=== PATIENT | female | born 1950 | race Caucasian/White ===

== ENCOUNTER 2023-03-15 08:46 | Outpatient (OUT) | payer MEDICARE, SELFPAY ==
--- NOTE | 2023-03-15 08:52 | MM_ITS ---
Patient: RIGOBERTO BARRIOS Exam Date: 03/15/2023 : 1950 Gender:F Ordering : DR MARIA DE JESUS SHORT M.D. Admission #: [id number] Family : Order #: [id number] CLICK HERE TO VIEW EXAM RADIOLOGY REPORT PROCEDURE: MM TOMOSYNTHESIS SCREENING BI COMPARISON: MG MAMM SCREEN 3D OWEN CAD, 01/05/2022. MG MAMM DX 3D LT CAD, 03/26/2021. INDICATIONS: Screening Calculator Name NCI Breast Cancer Risk Assessment Tool 5 Year Breast Cancer Risk 2.40% Lifetime Breast Cancer Risk 6.30% Personal Breast Cancer No Personal Ovarian Cancer No Treatments None Family Cancers Father with lung cancer at age ~72. LOCATION: [facility] BREAST COMPOSITION: Scattered areas fibroglandular density. FINDINGS: DIAGNOSTIC CATEGORY 2--BENIGN FINDING. NO CHANGE FROM COMPARISON. Scattered benign-appearing calcifications are present. Scattered benign-appearing nodules are present. Scattered benign-appearing lymph nodes are present. RIGHT BREAST: No significant suspicious finding. LEFT BREAST: No significant suspicious finding. RECOMMENDATIONS: ROUTINE MAMMOGRAM AND CLINICAL EVALUATION IN 12 MONTHS. PLEASE NOTE: A NORMAL MAMMOGRAM DOES NOT EXCLUDE THE POSSIBILITY OF BREAST CANCER. A CLINICALLY SUSPICIOUS PALPABLE LUMP SHOULD BE BIOPSIED. Dictated by: Rich Shankar MD on 03/15/2023 at 11:29 Approved by: Rich Shankar MD on 03/15/2023 at 11:32
== END 2023-03-15 08:47 | disposition home or self-care (01) ==
LOC: MAMMO 08:46
PROVIDERS: Family Provider Internal Medicine; PCP Internal Medicine; Visit Provider Internal Medicine
DX: Z12.31 Encounter for screening mammogram for malignant neoplasm of breast (principal); Z80.1 Family history of malignant neoplasm of trachea, bronchus and lung
CPT/HCPCS: 77063; 77067

== ENCOUNTER 2024-03-26 09:43 | Outpatient (OUT) | payer MEDICARE, SELFPAY ==
--- NOTE | 2024-03-26 10:00 | MM_ITS ---
Patient Name: RIGOBERTO BARRIOS MR#: [id number] : 1950 Exam Date: 03/26/2024 Ordering Doctor: DR MARIA DE JESUS SHORT M.D. RADIOLOGY REPORT PROCEDURE: MM TOMOSYNTHESIS SCREENING BI COMPARISON: MG MAMM SCREEN 3D OWEN CAD, 01/05/2022. MM TOMOSYNTHESIS SCREENING BI, 03/15/2023. INDICATIONS: Screening for malignant neoplasm Calculator Name NCI Breast Cancer Risk Assessment Tool 5 Year Breast Cancer Risk 2.40% Lifetime Breast Cancer Risk 5.90% Personal Breast Cancer No Personal Ovarian Cancer No Treatments None Family Cancers Father with lung cancer at age ~72. LOCATION: [facility] BREAST COMPOSITION: There are scattered areas of fibroglandular density. FINDINGS: DIAGNOSTIC CATEGORY 2--BENIGN FINDING. NO CHANGE FROM COMPARISON. Scattered benign-appearing nodules are present. Scattered benign-appearing calcifications are present. Scattered benign-appearing lymph nodes are present. RIGHT BREAST: No significant suspicious finding. LEFT BREAST: No significant suspicious finding. Multiple rim calcified likely oil cysts in the left breast, stable. RECOMMENDATIONS: ROUTINE MAMMOGRAM AND CLINICAL EVALUATION IN 12 MONTHS. PLEASE NOTE: A NORMAL MAMMOGRAM DOES NOT EXCLUDE THE POSSIBILITY OF BREAST CANCER. A CLINICALLY SUSPICIOUS PALPABLE LUMP SHOULD BE BIOPSIED. Dictated by: Rich Shankar MD on 03/26/2024 at 12:46 Approved by: Rich Shankar MD on 03/26/2024 at 12:48
== END 2024-03-26 09:44 | disposition home or self-care (01) ==
LOC: MAMMO 09:43
PROVIDERS: Family Provider Internal Medicine; PCP Internal Medicine; Visit Provider Internal Medicine
DX: Z12.31 Encounter for screening mammogram for malignant neoplasm of breast (principal); Z80.1 Family history of malignant neoplasm of trachea, bronchus and lung
CPT/HCPCS: 77063; 77067

== ENCOUNTER 2025-02-25 10:31 | Outpatient (OUT) | payer MEDICARE, SELFPAY ==
--- OUTSIDE RECORDS SUMMARY | 2021-02-08 05:15 | XMS_ITS | Continuity of Care Document ---
Author Organization [facility] Address [address] [place] [address] Phone Care Team Providers Care Systems Integration Manager Name Role Phone River Saucedo Unavailable Unavailable [...] Diagnoses Date Provider Providers Copied on Encounter [facility], [address] [place], [place], [id number], [place] tel:[phone] [facility] lumbar spine (chief complaint)l umbar spine (chief complaint) Segmental and somatic dysfunction of lumbar regionLow back painOther intervertebral disc degeneration, lumbar regionSegmental and somatic dysfunction of thoracic region 1 Lewis Holman. [address] [place], [place], [id number] , . tel:[phone] [facility], [address] [place], [place], [id number], tel:[phone] [facility] lumbar spine (chief complaint)l umbar spine (chief complaint) Segmental and somatic dysfunction of lumbar regionLow back painOther intervertebral disc degeneration, lumbar regionSegmental and somatic dysfunction of thoracic region 1 Lewis Holman. [address] [place], [place], [id number] , [place]. [phone] [facility], [address] [place] [address], [id number], tel:[phone] [facility] lumbar spine (chief complaint)l umbar spine (chief complaint) Segmental and somatic dysfunction of lumbar regionLow back painOther intervertebral disc degeneration, lumbar regionSegmental and somatic dysfunction of thoracic region 1 Lewis Holman. [address] [place], [place], [id number] , [place]. tel:[phone] [facility], [address] [place] [address], [id number], [place] tel:[phone] [facility] lumbar spine (chief complaint)l umbar spine (chief complaint) Segmental and somatic dysfunction of lumbar regionLow back painOther intervertebral disc degeneration, lumbar regionSegmental and somatic dysfunction of thoracic region 1 Lewis Holman. [address] [place] [address], [id number] , [place]. [phone] [facility], [address] [place], [place], [id number], tel:[phone] [facility] lumbar spine (chief complaint)l umbar spine (chief complaint) Segmental and somatic dysfunction of lumbar regionLow back painOther intervertebral disc degeneration, lumbar regionSegmental and somatic dysfunction of cervical region 1 Lewis Holman. [address] [place], [place], [id number] , [place]. tel: [phone] [facility], [address] [place] [address], [place], [id number], tel:[phone] [facility] lumbar spine (chief complaint)l umbar spine (chief complaint) Segmental and somatic dysfunction of lumbar regionLow back painOther intervertebral disc degeneration, lumbar regionSegmental and somatic dysfunction of thoracic region 1 Lewis Holman. [address] [place], [place], [id number] , [place]. tel: [phone] [facility], [address] [place], [place], [id number], [place] tel:[phone] [facility] lumbar spine (chief complaint)l umbar spine (chief complaint) Segmental and somatic dysfunction of lumbar regionLow back painOther intervertebral disc degeneration, lumbar regionSegmental and somatic dysfunction of cervical region 1 Lewis Holman. [address] [place] [address], [id number] , [place]. tel: [phone] [facility], [address] [place], [place], [id number], [place] tel:[phone] [facility] lumbar spine (chief complaint)l umbar spine (chief complaint) Segmental and somatic dysfunction of lumbar regionLow back painOther intervertebral disc degeneration, lumbar regionSegmental and somatic dysfunction of thoracic region 1 Lewis Holman. [address] [place], [place], [id number] , [place]. tel: [phone] [facility], [address] [place] [address], [id number], [place] tel:[phone] [facility] lumbar spine (chief complaint)l umbar spine (chief complaint) Segmental and somatic dysfunction of lumbar regionLow back painOther intervertebral disc degeneration, lumbar regionSegmental and somatic dysfunction of thoracic region 1 Lewis Holman. [address] [place], [place], [id number] , [place]. tel: [phone] [facility], [address] [place], [place], [id number], [place] tel:[phone] [facility] lumbar spine (chief complaint)l umbar spine (chief complaint) Segmental and somatic dysfunction of lumbar regionLow back painOther intervertebral disc degeneration, lumbar regionSegmental and somatic dysfunction of thoracic region 1 Lewis Holman. [address] [place], [place], [id number] , [place]. tel: [phone] [facility], [address] [place], [place], [id number], [place] tel:[phone] [facility] lumbar spine (chief complaint)l umbar spine (chief complaint) Segmental and somatic dysfunction of lumbar regionLow back painOther intervertebral disc degeneration, lumbar regionSegmental and somatic dysfunction of thoracic region 1 Lewis Holman. [address] [place], [place], [id number] , [place]. tel: [phone] [facility], [address] [place], [place], [id number], [place] tel:[phone] [facility] lumbar spine (chief complaint)l umbar spine (chief complaint) Segmental and somatic dysfunction of lumbar regionLow back painOther intervertebral disc degeneration, lumbar regionSegmental and somatic dysfunction of thoracic region 1 Lewis Holman. [address] [place], [place], [id number] , [place]. tel: [phone] [facility], [address] [place], [place], [id number], [place] tel:[phone] [facility] lumbar spine (chief complaint)l umbar spine (chief complaint) Segmental and somatic dysfunction of lumbar regionLow back painOther intervertebral disc degeneration, lumbar regionSegmental and somatic dysfunction of thoracic region 1 Lewis Holman. [address] [place], [place], [id number] , [place]. tel: [phone] [facility], [address] [place], [place], [id number], [place] tel:[phone] [facility] lumbar spine (chief complaint)l umbar spine (chief complaint) Segmental and somatic dysfunction of lumbar regionLow back painOther intervertebral disc degeneration, lumbar regionSegmental and somatic dysfunction of cervical region Oct- 1 Lewis Holman. [address] [place], [place], [id number] , [place]. tel: [phone] [facility], [address] [place], [place], [id number], [place] tel:[phone] [facility] lumbar spine (chief complaint)l umbar spine (chief complaint) Segmental and somatic dysfunction of lumbar regionLow back painOther intervertebral disc degeneration, lumbar regionSegmental and somatic dysfunction of thoracic region Oct- 1 Lewis Holman. [address] [place] [address], [id number] , [place]. tel: [phone] [facility], [address] [place] [address], [id number], [place] tel:[phone] [facility] lumbar spine (chief complaint)l umbar spine (chief complaint) Segmental and somatic dysfunction of lumbar regionLow back painOther intervertebral disc degeneration, lumbar regionSegmental and somatic dysfunction of thoracic region Oct- 1 Lewis Holman. [address] [place] [address], [id number] , [place]. tel: [phone] [facility], [address] [place] [address], [id number], [place] tel:[phone] [facility] lumbar spine (chief complaint)l umbar spine (chief complaint) Segmental and somatic dysfunction of lumbar regionLow back painOther intervertebral disc degeneration, lumbar regionSegmental and somatic dysfunction of thoracic region Oct- 1 Lewis Holman. [address] [place] [address], [id number] , [place]. tel: [phone] [facility], [address] [place] [address], [id number], [place] tel:[phone] [facility] lumbar spine (chief complaint)l umbar spine (chief complaint) Segmental and somatic dysfunction of lumbar regionLow back painOther intervertebral disc degeneration, lumbar regionSegmental and somatic dysfunction of thoracic region Apr-1 2-202 1 Lewis Holman. [address] [place], [place], [id number] , [place]. tel: [phone] [facility], [address] [place], [place], [id number], [place] tel:[phone] [facility] lumbar spine (chief complaint)l umbar spine (chief complaint) Segmental and somatic dysfunction of lumbar regionLow back painOther intervertebral disc degeneration, lumbar regionSegmental and somatic dysfunction of thoracic region Apr-0 8- 1 Lewis Holman. [address] [place], [place], [id number] , [place]. tel: [phone] [facility], [address] [place] [address], [id number], [place] tel:[phone] [facility] lumbar spine (chief complaint)l umbar spine (chief complaint) Segmental and somatic dysfunction of lumbar regionLow back painOther intervertebral disc degeneration, lumbar regionSegmental and somatic dysfunction of thoracic region Apr-0 5- 1 Lewis Holman. [address] [place] [address], [id number] , [place]. tel: [phone] [facility], [address] [place], [place], [id number], [place] tel:[phone] [facility] lumbar spine (chief complaint)l umbar spine (chief complaint) Segmental and somatic dysfunction of lumbar regionLow back painOther intervertebral disc degeneration, lumbar regionSegmental and somatic dysfunction of thoracic region Apr-0 1-202 1 Lewis Holman. [address] [place] [address], [id number] , [place]. tel: [phone] [facility], [address] [place] [address], [id number], [place] tel:[phone] [facility] lumbar spine (chief complaint)l umbar spine (chief complaint) Segmental and somatic dysfunction of lumbar regionLow back painOther intervertebral disc degeneration, lumbar regionSegmental and somatic dysfunction of thoracic region Mar-3 0-202 1 Lewis Holman. [address] [place], [place], [id number] , [place]. tel:[phone] [facility], [address] [place], [place], [id number], [place] tel:[phone] [facility] lumbar spine (chief complaint)l umbar spine (chief complaint) Segmental and somatic dysfunction of lumbar regionLow back painOther intervertebral disc degeneration, lumbar regionSegmental and somatic dysfunction of thoracic region 1 Lewis Holman. [address] [place], [place], [id number] , [place]. tel:[phone] [facility], [address] [place], [place], [id number], [place] tel:[phone] [facility] lumbar spine (chief complaint)l umbar spine (chief complaint) Segmental and somatic dysfunction of lumbar regionLow back painOther intervertebral disc degeneration, lumbar regionSegmental and somatic dysfunction of cervical region 1 Lewis Holman. [address] [place] [address], [id number] , [place]. tel:[phone] Family History Family Member Type Diagnosis Age At Onset No Information Payers Payer name Insurance type Covered green party ID Authoriza tion(s) [employer] Medicare PPS MB [id number] Social History Type Description Quantity Date Captured [...]
--- OUTSIDE RECORDS SUMMARY | 2025-02-13 09:20 | XMS_ITS | Encounter Summary ---
Author Organization [facility] Address [address] [place] [address] Care Team Providers Care Management Services Technician Name Role Phone Noah Bethea MD Unavailable [phone] Noah Bethea MD Primary Care Provider [phone] Reason for Visit * Reason Comments Follow-up Encounter Details Date Type Department Care Team (Latest Contact Info) Description 02/13/2025 9:20 AM EDT Clinical Support [facility] [address] [facility] [address] [place] [address] Po Cha, DPM [address] [facility] [address] [place] [address] Capsulitis of metatarsophalangeal (MTP) joint of left foot (Primary Dx); Metatarsal deformity, left; Contracture of left ankle Social History Tobacco Use Types Packs/Day Years Used Date Smoking Tobacco: Former Cigarettes Q uit: 10/16/1991 Smokeless Tobacco: Never Tobacco Cessation:Counseling Given: Yes Alcohol Use Standard Drinks/Week Comments Never 0 (1 standard drink = 0.6 oz pur e alcohol) Caffeine 1-2 cups per day PHQ-2 Answer Date Recorded Patient Health Questionnaire-2 Score 0 09/11/2024 Comments Unknown Sex and Gender Information Value Date Recorded Sex Assigned at Not on file Legal Sex Female 6:47 PM EDT Gender Identity Not on file Sexual Orientation Not on file documented as of this encounter Last Filed Vital Signs Vital Sign Reading Time Taken Comments Blood Pressure - - Pulse - - Temperature - - Respiratory Rate 16 02/13/2025 9:08 AM EDT Oxygen Saturation - - Inhaled Oxygen Concentration - - Weight 106 kg (233 lb) 02/13/2025 9:08 AM EDT Height 170.2 cm (5' 7 ) 02/13/2025 9:08 AM EDT Body Mass Index 36.49 02/13/2025 9:08 AM EDT documented in this encounter Progress Notes * Po Zelaya Semaj, DPM - 02/13/2025 9:20 AM EDT Patient: Jennie Bey : 1950 PCP: Noah Bethea MD SUBJECTIVE Patient presents today for follow up of capsulitis and synovitis to the left 5th MPJ Currently they rate their pain on a 1-10 scale a 0-1 States prior treatments of steroid injection and nsaids with relief States pain is aggrevated with WB. Pt has been using wider shoes with minimal improvement. Pt has hx of 5th metatarsal deformity of gay luna with discussion of sx in past. Allergies: No Known Allergies Past Medical History: Past Medical History: Diagnosis Date Alopecia Anxiety Casper's thyroiditis Hypertension Kidney stones Obesity Plantar fasciitis Varicose vein of leg Medications: Current Outpatient Medications: amLODIPine (Norvasc) 5 MG tablet, Take 1 tablet (5 mg) by mouth Daily, Disp: 90 tablet, Rfl: 5 atenolol (Tenormin) 25 MG tablet, TAKE 1 TABLET BY MOUTH EVERY DAY, Disp: 90 tablet, Rfl: 4 cholecalciferol (Vitamin D-3) 50 MCG (1999 UT) capsule, Take 1 capsule by mouth in the morning., Disp: , Rfl: levothyroxine (Synthroid, Levoxyl) 100 MCG tablet, TAKE 1 TABLET BY MOUTH ONCE EVERY MORNING ON AN EMPTY STOMACH, Disp: 90 tablet, Rfl: 4 magnesium oxide (Mag-Ox) 400 MG tablet, Take 400 mg by mouth in the morning., Disp: , Rfl: Multiple Vitamins-Minerals (OCUVITE ADULT 50+ PO), Daily., Disp: , Rfl: Social History: Social History Socioeconomic History Marital status: Spouse name: Not on file Number of children: Not on file Years of education: Not on file Highest education level: Not on file Occupational History Not on file Tobacco Use Smoking status: Former Current packs/day: 0.00 Types: Cigarettes Quit date: 10/16/1991 Years since quittin.3 Smokeless tobacco: Never Substance and Sexual Activity Alcohol use: Never Comment: Caffeine 1-2 cups per day Drug use: Never Sexual activity: Not on file Other Topics Concern Not on file Social History Narrative Not on file Social Drivers of Health Financial Resource Strain: Not on file Food Insecurity: Not on file Transportation Needs: Not on file Physical Activity: Not on file Stress: Not on file Social Connections: Not on file Intimate Partner Violence: Not on file Housing Stability: Not on file ROS: Gastrointestinal: denies abdominal pain, ulcers, or changes in appetite or bowel habits Musculoskeletal: Positive generalized arthritis to joints and denies loss of strength. Positive history of right knee DJD Cardiovascular: denies CP, palpitations, irregular rhythms OBJECTIVE LE EXAM: DERM: Positive hair growth to b/l feet with good skin turgor noted. Negative openings in skin. Rubor to lateral prominence of 5th metatarsal head left foot Rubor to dorsal medial eminence of the left 1st MPJ metatarsal head region VASC: Palpable pedal pulsed b/l with warm to cool tibia to toes b/l NEURO: Gross sensation intact digits 1-10 and b/l feet ORTHO: +5/5 DF/PF/IN/EV right, +5/5 DF/PF/IN/EV left. 20 degrees inversion and 10 degrees eversion STJ b/l. Ankle ROM less than 10 degrees b/l. Negative pain on palpation to left 5th MPJ capsule Lateral deviation of left 5th metatarsal head HAV deformity left that is reducible XRAY: XR foot 3+ views left Imaging Result: Notable left great toe hallux rigidus and degenerative changes to the 1st MPJ with notable tailor's bunion and 5th digital deformity and metatarsus adductus ASSESSMENT 1. Capsulitis of metatarsophalangeal (MTP) joint of left foot 2. Metatarsal deformity, left 3. Contracture of left ankle PLAN Discussed possible left Mendy osteotomy with tailor's bunionectomy if no relief in the future and postoperative timeframe and would like [place] for postoperative pain Patient continue with wider shoes Po Cha DPM documented in this encounter Plan of Treatment Upcoming Encounters Date Type Department Care Team (Late st Contact Info) Description 03/19/2025 10:00 AM EDT Office Visit [facility] [place] [facility] [address] [facility] [address] [place] [address] Noah Bethea MD [address] [facility] [address] [place] [address] documented as of this encounter Visit Diagnoses Diagnosis Capsulitis of metatarsophalangeal (MTP) joint of left foot- Primary Metatarsal deformity, left Contracture of left ankle documented in this encounter Additional Health Concerns Assessment Noted Time PHQ-9 Depression Total Score: 0 11/01/19 24 8:00 AM EDT documented as of this encounter Care Teams Management Services Technician Relationship Specialty Start Date End Date Noah Bethea MD [address] [facility] [address] [place] [address] PCP - [employer] 07/10/17 Noah Bethea MD [address] [facility] [address] [place] [address] PCP - General Internal Medicine 01/17/23 documented as of this encounter
--- OUTSIDE RECORDS SUMMARY | 2025-02-25 10:34 | XMS_ITS | Encounter Summary ---
Author Organization [facility] Address [address] [place] [address] Care Team Providers Care Nuclear Equipment Design Engineer Name Role Phone Noah Bethea MD Unavailable [phone] Noah Bethea MD Primary Care Provider [phone] Encounter Details Date Type Department Care Team (Late Contact Info) Description 03/15/2023 Orders Only [facility] [place] [facility] [address] [facility] [address] [place] [address] A, Unknown Practice [address] [place], [place] [address] Social History Tobacco Use Types Packs/Day Years Used Date Smoking Tobacco: Former Cigarettes Q uit: 10/16/1991 Smokeless Tobacco: Never Alcohol Use Standard Drinks/Week Comments Never 0 (1 standard drink = 0.6 oz pur e alcohol) Caffeine 1-2 cups per day PHQ-2 Answer Date Recorded Patient Health Questionnaire-2 Score 0 01/18/2023 Comments Unknown Sex and Gender Information Value Date Recorded Sex Assigned at Not on file Legal Sex Female 6:47 PM EDT Gender Identity Not on file Sexual Orientation Not on file documented as of this encounter Plan of Treatment Upcoming Encounters Date Type Department Care Team (Late st Contact Info) Description 03/19/2025 10:00 AM EDT Office Visit [facility] [place] [facility] [address] [facility] [address] [place] [address] Noah Bethea MD [address] [facility] [address] [place], [place] [id number] documented as of this encounter Procedures Procedure Name Priority Date/Time Associated Diagnosis Comments MAMMOGRAM* Routine 03/15/2023 12:52 PM EDT documented in this encounter Results * MAMMOGRAM* (03/15/2023 12:52 PM EDT) Anatomical Region Laterality Modality Radiographic Christen ging us Unknown Practice A IMG XR PROCEDURES Final Resul t documented in this encounter Visit Diagnoses Not on filedocumented in this encounter Care Teams Nuclear Equipment Design Engineer Relationship Specialty Start Date End Date Noah Bethea MD [address] [facility] [address] [place] [address] PCP - [employer] 07/10/17 Noah Bethea MD [address] [facility] [address] [place] [address] PCP - General Internal Medicine 01/17/23 documented as of this encounter
--- OUTSIDE RECORDS SUMMARY | 2025-02-25 10:34 | XMS_ITS | Encounter Summary ---
Author Organization [facility] Address [address] [place] [address] Care Team Providers Care Data Analytics Specialist Name Role Phone Noah Bethea MD Unavailable [phone] Noah Bethea MD Primary Care Provider [phone] Encounter Details Date Type Department Care Team (Late Contact Info) Description 01/31/2023 Abstract [facility] [place] [facility] [address] [facility] [address] [place] [address] Noah Bethea MD [address] [facility] [address] [place] [address] Social History Tobacco Use Types Packs/Day Years Used Date Smoking Tobacco: Former Cigarettes Q uit: 1991 Smokeless Tobacco: Never Alcohol Use Standard Drinks/Week Comments Never 0 (1 standard drink = 0.6 oz pur e alcohol) PHQ-2 Answer Date Recorded Patient Health Questionnaire-2 [...] 10:00 AM EDT Office Visit [facility] [place] [facility] [address] [facility] [address] [place] [address] Noah Bethea MD [address] [facility] [address] [place] [address] documented as of this encounter Visit Diagnoses Not on filedocumented in this encounter Care Teams Data Analytics Specialist Relationship Specialty Start Date End Date Noah Bethea MD [address] [facility] [address] [place] [address] PCP - [employer] 07/10/17 Noah Bethea MD [address] [facility] [address] [place] [address] PCP - General Internal Medicine 01/17/23 documented as of this encounter
--- OUTSIDE RECORDS SUMMARY | 2025-02-25 10:34 | XMS_ITS | Encounter Summary ---
Author Organization [facility] Address [address] [place] [address] Care Team Providers Care Track Sweeper Name Role Phone Noah Bethea MD Unavailable [phone] Noah Bethea MD Primary Care Provider [phone] Encounter Details Date Type Department Care Team (Late st Contact Info) Description 09/11/2024 Abstract [facility] [place] [facility] [address] [facility] [address] [place] [id number] Noah Bethea MD [address] [place] [address] Social History Tobacco Use Types Packs/Day Years [...] on file documented as of this encounter Functional Status * Over the past 2 weeks, how often have you been bothered by any of the following problems? Question Answer Date of Assessment Author Little interest or pleasure in doing things Not at all 09/11/2024 8:00 AM Ellen Pimentel LP N Feeling down, depressed, or hopeless Not at all 09/11/2024 8:00 AM Ellen Pimentel LP N Patient Health Questionnaire -2 Score 0 09/11/2024 8:00 AM Ellen Pimentel LP N documented as of this encounter Plan of Treatment Upcoming Encounters Date Type Department Care Team (Late st Contact Info) Description 03/19/2025 10:00 AM EDT Office Visit [facility] [place] [facility] [address] [facility] [address] [place] [address] Noah Bethea MD [address] [facility] 110 [place] [address] documented as of this encounter Visit Diagnoses Not on filedocumented in this encounter Additional Health Concerns Assessment Noted Time PHQ-9 Depression Total Score: 0 11/01/19 24 8:00 AM EDT documented as of this encounter Care Teams Track Sweeper Relationship Specialty Start Date End Date Noah Bethea MD [address] [facility] 110 [place] [address] PCP - [employer] 07/10/17 Noah Bethea MD [address] [facility] 110 [place] [address] PCP - General Internal Medicine 01/17/23 documented as of this encounter
--- OUTSIDE RECORDS SUMMARY | 2025-02-25 10:34 | XMS_ITS | Encounter Summary ---
Author Organization [facility] Address [address] [place] [address] Care Team Providers Care Sales Property Manager Name Role Phone Noah Bethea MD Unavailable [phone] Noah Bethea MD Primary Care Provider [phone] Encounter Details Date Type Department Care Team (Latest Contact Info) Description 02/13/2025 Travel Social History Tobacco Use Types Packs/Day Years [...] 03/19/2025 10:00 AM EDT Office Visit [facility] [place] [address] [facility] [address] [place] [address] Noah Bethea MD [address] [facility] [place], [place] [id number] documented as of this encounter Visit Diagnoses Not on filedocumented in this encounter Additional Health Concerns Assessment Noted Time PHQ-9 Depression Total Score: 0 11/01/19 24 8:00 AM EDT documented as of this encounter Care Teams Sales Property Manager Relationship Specialty Start Date End Date Noah Bethea MD [address] [place] [address] PCP - [employer] 07/10/17 Noah Bethea MD [address] [facility] 110 [place] [address] PCP - General Internal Medicine 01/17/23 documented as of this encounter
--- OUTSIDE RECORDS SUMMARY | 2025-02-25 10:34 | XMS_ITS | Encounter Summary ---
Author Organization [facility] Address [address] [place] [address] Care Team Providers Care Motion Picture Cameraman Name Role Phone Noah Bethea MD Unavailable [phone] Noah Bethea MD Primary Care Provider [phone] Encounter Details Date Type Department Care Team (Late Contact Info) Description 11/02/2023 Abstract [facility] [place] [facility] [address] [facility] [address] [place] [address] Noah Bethea MD [address] [facility] 110 [place] [address] Social History Tobacco Use Types Packs/Day Years Used Date Smoking Tobacco: Former Cigarettes Q uit: 10/16/1991 Smokeless Tobacco: Never Alcohol Use Standard Drinks/Week Comments Never 0 (1 standard drink = 0.6 oz pur e alcohol) Caffeine 1-2 cups per day PHQ-2 Answer Date Recorded Patient Health Questionnaire-2 Score 0 11/01/2023 Comments Unknown Sex and Gender Information Value Date Recorded Sex Assigned at Not on file Legal Sex Female 6:47 PM EDT Gender Identity Not on file Sexual Orientation Not on file documented as of this encounter Plan of Treatment Upcoming Encounters Date Type Department Care Team (Late st Contact Info) Description 03/19/2025 10:00 AM EDT Office Visit [facility] [place] [facility] [address] [facility] [address] [place] [id number] Noah Bethea MD [address] [facility] 110 [place] [address] documented as of this encounter Visit Diagnoses Not on filedocumented in this encounter Additional Health Concerns Assessment Noted Time PHQ-9 Depression Total Score: 0 11/01/19 24 8:00 AM EDT documented as of this encounter Care Teams Motion Picture Cameraman Relationship Specialty Start Date End Date Noah Bethea MD [address] [facility] 110 [place] [address] PCP - [employer] 07/10/17 Noah Bethea MD [address] [facility] 110 [place] [address] PCP - General Internal Medicine 01/17/23 documented as of this encounter
--- OUTSIDE RECORDS SUMMARY | 2025-02-25 10:34 | XMS_ITS | Encounter Summary ---
Author Organization [facility] Address [address] [place] [address] Care Team Providers Care Sheet Metal Assembler And Riveter Name Role Phone Maria De Jesus Bethea MD Unavailable [phone] Maria De Jesus Bethea MD Primary Care Provider [phone] Encounter Details Date Type Department Care Team (Late Contact Info) Description 03/15/2023 Clinisync Result Encounter [facility] External Department Unsolicited Maria De Jesus Bethea MD 112 [facility] 110 [place] [address] Social History Tobacco Use Types Packs/Day Years [...] Office Visit [facility] [address] [facility] 110 [place] [phone] Maria De Jesus Bethea MD [address] [facility] 110 [place], [place] [phone] documented as of this encounter Procedures Procedure Name Priority Date/Time Associated Diagnosis Comments JORDYN 03/15/2023 11:32 AM EDT documented in this encounter Results * TOMOSBI (03/15/2023 11:32 AM EDT) Anatomical Region Laterality Modality Other 03/15/2023 11:3 2 AM EDT Narrative 03/15/2023 11:32 [place] [address] Mammography Report Signed Patient: JENNIE BEY MR#: [id number] : 1950 Acct:[id number] Age/Sex: 72 / F ADM Date: 03/15/23 Loc: MAMMO Attending Dr: MARIA DE JESUS BETHEA Ordering Physician: MARIA DE JESUS BETHEA Results: Date of Service: 03/15/23 Follow Up: Procedure(s): MM tomosynthesis screening BI Accession Number(s): [id number] cc: MARIA DE JESUS BETHEA Patient: JENNIE BEY Exam Date: 03/15/2023 : 1950 Gender:F Ordering : DR MARIA DE JESUS BETHEA M.D. Admission #: [id number] Family : Order #: [id number] CLICK HERE TO VIEW EXAM RADIOLOGY REPORT PROCEDURE: MM TOMOSYNTHESIS SCREENING BI COMPARISON: MG MAMM SCREEN 3D OWEN CAD, 01/05/2022. MG MAMM DX 3D LT CAD, 03/26/2021. INDICATIONS: Screening Calculator Name NCI Breast Cancer Risk Assessment Tool 5 Year Breast Cancer Risk 2.40% Lifetime Breast Cancer Risk 6.30% Personal Breast Cancer No Personal Ovarian Cancer No Treatments None Family Cancers Father with lung cancer at age 72. LOCATION: [facility] BREAST COMPOSITION: Scattered areas fibroglandular density. FINDINGS: DIAGNOSTIC CATEGORY 2--BENIGN FINDING. NO CHANGE FROM COMPARISON. Scattered benign-appearing calcifications are present. Scattered benign-appearing nodules are present. Scattered benign-appearing lymph nodes are present. RIGHT BREAST: No significant suspicious finding. LEFT BREAST: No significant suspicious finding. RECOMMENDATIONS: ROUTINE MAMMOGRAM AND CLINICAL EVALUATION IN 12 MONTHS. PLEASE NOTE: A NORMAL MAMMOGRAM DOES NOT EXCLUDE THE POSSIBILITY OF BREAST CANCER. A CLINICALLY SUSPICIOUS PALPABLE LUMP SHOULD BE BIOPSIED. Dictated by: Rich Shankar MD on 03/15/2023 at 11:29 Approved by: Rich Shankar MD on 03/15/2023 at 11:32 Dictated By: Rich Shankar M.D. Signed By: 03/15/23 1133 DD/ 1132 TD/TT: Longwall Shearer Operator: Procedure Note Radiology, Radiologist, - 03/31/2023 [place] [address] Mammography Report Signed Patient: JENNIE BEY KMR#: [id number] : 1950Acct:[id number] Age/Sex: 72 / FADM Date: 03/15/23 Loc: MAMMO Attending Dr: MARIA DE JESUS BETHEA Ordering Physician: Nahomy BETHEAults: Date of Service: 03/15/23Follow Up: Procedure(s): MM tomosynthesis screening BI Accession Number(s): [id number] cc: MARIA DE JESUS BETHEA Patient: JENNIE BEY Exam Date: 03/15/2023 : 1950 Gender:F Ordering : DR MARIA DE JESUS BETHEA M.D. Admission #: [id number] Family : Order #: [id number] CLICK HERE TO VIEW EXAM RADIOLOGY REPORT PROCEDURE: MM TOMOSYNTHESIS SCREENING BI COMPARISON: MG MAMM SCREEN 3D OWEN CAD, 01/05/2022. MG MAMM DX 3D LTCAD, 03/26/2021. INDICATIONS: Screening Calculator Name NCI Breast Cancer Risk Assessment Tool 5 Year Breast Cancer Risk 2.40% Lifetime Breast Cancer Risk 6.30% Personal Breast Cancer No Personal Ovarian Cancer No Treatments None Family Cancers Father with lung cancer at age 72. LOCATION: [facility] BREAST COMPOSITION: Scattered areas fibroglandular density. FINDINGS: DIAGNOSTIC CATEGORY 2--BENIGN FINDING. NO CHANGE FROM COMPARISON. Scattered benign-appearing calcifications are present. Scattered benign-appearing nodules are present. Scattered benign-appearing lymphnodes are present. RIGHT BREAST: No significant suspicious finding. LEFT BREAST: No significant suspicious finding. RECOMMENDATIONS: ROUTINE MAMMOGRAM AND CLINICAL EVALUATION IN 12 MONTHS. PLEASE NOTE: A NORMAL MAMMOGRAM DOES NOT EXCLUDE THE POSSIBILITY OFBREAST CANCER. A CLINICALLY SUSPICIOUS PALPABLE LUMP SHOULD BE BIOPSIED. Dictated by: Rich Shankar MD on 03/15/2023 at 11:29 Approved by: Rich Shankar MD on 03/15/2023 at 11:32 Dictated By: Rich Shankar M.D. Signed By:03/15/23 1133 DD/ 1132 TD/TT: Longwall Shearer Operator: us Maria De Jesus Bethea MD [facility] Final Result documented in this encounter Visit Diagnoses Not on filedocumented in this encounter Care Teams Sheet Metal Assembler And Riveter Relationship Specialty Start Date End Date Maria De Jesus Bethea MD [address] [facility] [address] [place] [address] PCP - [employer] 07/10/17 Maria De Jesus Bethea MD [address] [facility] [address] [place] [address] PCP - General Internal Medicine 01/17/23 documented as of this encounter
--- OUTSIDE RECORDS SUMMARY | 2025-02-25 10:34 | XMS_ITS | Clinical Summary ---
Author Organization [facility] Address [address] [place], [place] [id number] Care Team Providers Care Clinical Manager Name Role Phone Luis E Umanzor Primary Care Provider [phone] Allergies No known active allergies Medications levothyroxine (SYNTHROID) 150 mcg tablet Take 150 mcg by mouth daily before breakfast. Active AMLODIPINE BESYLATE (AMLODIPINE ORAL) Take by mouth. 5 mg a day Active ascorbic acid (VITAMIN C WITH SHAYE HIPS) 500 mg tablet Take 500 mg by mouth once daily. Active cholecalciferol, vitamin D3, (VITAMIN D-3) 400 unit cap Take 400 Units by mouth once daily. Active GREEN TEA EXTRACT ORAL Take by mouth. 315 mg Active BIOTIN/FOLIC ACID/VIT BCOMP&C (BIOTIN FORTE ORAL) Take by mouth. 3 mg with zinc Active BIOTIN ORAL Take by mouth. 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 Social History Tobacco Use Types Packs/Day Years Used Date Smoking Tobacco: Former Cigarettes Q uit: 10/16/1991 Alcohol Use Standard Drinks/Week Comments Not Asked 0 (1 standard drink = 0.6 oz pur e alcohol) Comments Unknown Sex and Gender Information Value Date Recorded Sex Assigned at Not on file Legal Sex Female 10:19 AM EST Gender Identity Not on file Sexual Orientation Not on file Last Filed Vital Signs Vital Sign Reading Time Taken Comments Blood Pressure 142/77 08/20/2012 8:54 AM EST Pulse 79 08/20/2012 8:54 AM EST Temperature - - Respiratory Rate - - Oxygen Saturation - - Inhaled Oxygen Concentration - - Weight 97.9 kg (215 lb 12.8 oz) 08/20/2012 8:54 AM EST Height 164.8 cm (5' 4.88 ) 08/20/2012 8:54 AM ES T Body Mass Index 36.04 08/20/2012 8:54 AM EST Plan of Treatment Health Maintenance Due Date Last Done Comments Anxiety Screening 1968 Depression Screening 1968 Hepatitis C Screening 1968 DTaP,Tdap,Td Vaccine (1 - Tdap) [address] Colonography 1995 Cologuard (FIT-DNA) 1995 Colonoscopy 1995 Colorectal Cancer Screening 1995 Diabetes Screening 1995 Fecal Occult Blood 1995 Lipid Screening 1995 Sigmoidoscopy 1995 Pneumococcal Vaccine: 50+ (1 of 1 - PCV) 2000 Shingrix Vaccine (1 of 2) 2000 Bone Density Screening 2015 Advance Directive Discussion 07/10/2024 Influenza Vaccine (#1) 2025 RSV Vaccine (1 - 1-dose 75+ series) 2025 Care Teams Clinical Manager Relationship Specialty Start Date End Date [place] Luis E [place] [address] [place] [phone] PCP - General Family Medicine 06/27/12
--- OUTSIDE RECORDS SUMMARY | 2025-02-25 10:34 | XMS_ITS | Encounter Summary ---
Author Organization [facility] Address [address] [place] [address] Care Team Providers Care Dryland Farmer Name Role Phone Maria De Jesus Bethea MD Unavailable [phone] Maria De Jesus Bethea MD Primary Care Provider [phone] Encounter Details Date Type Department Care Team (Late Contact Info) Description 03/26/2024 Clinisync Result Encounter [facility] External Department Unsolicited Maria De Jesus Bethea MD 112 [facility] 110 [place] [address] Social History Tobacco Use Types [...] Office Visit [facility] [address] [facility] 110 [place] [phone] Maria De Jesus Bethea MD [address] [facility] 110 [place], [place] [address] documented as of this encounter Procedures Procedure Name Priority Date/Time Associated Diagnosis Comments MM TOMOSYNTHESIS SCREENING BI 03/26/2024 12:48 PM EDT documented in this encounter Results * MM TOMOSYNTHESIS SCREENING BI (03/26/2024 12:48 PM EDT) Anatomical Region Laterality Modality Other 03/26/2024 12:4 8 PM EDT Narrative 03/26/2024 12:48 [place] [address] Mammography Report Signed Patient: JENNIE BEY MR#: [id number] : 1950 Acct:[id number] Age/Sex: 73 / F ADM Date: 03/26/24 Loc: MAMMO Attending Dr: MARIA DE JESUS BETHEA Ordering Physician: MARIA DE JESUS BETHEA Results: Date of Service: 03/26/24 Follow Up: Procedure(s): MM tomosynthesis screening BI Accession Number(s): [id number] cc: MARIA DE JESUS BETHEA Patient Name: JENNIE BEY MR#: [id number] : 1950 Exam Date: 03/26/2024 Ordering Doctor: DR MARIA DE JESUS BETHEA M.D. RADIOLOGY REPORT PROCEDURE: MM TOMOSYNTHESIS SCREENING BI COMPARISON: MG MAMM SCREEN 3D OWEN CAD, 01/05/2022. MM TOMOSYNTHESIS SCREENING BI, 03/15/2023. INDICATIONS: Screening for malignant neoplasm Calculator Name NCI Breast Cancer Risk Assessment Tool 5 Year Breast Cancer Risk 2.40% Lifetime Breast Cancer Risk 5.90% Personal Breast Cancer No Personal Ovarian Cancer No Treatments None Family Cancers Father with lung cancer at age 72. LOCATION: [facility] BREAST COMPOSITION: There are scattered areas of fibroglandular density. FINDINGS: DIAGNOSTIC CATEGORY 2--BENIGN FINDING. NO CHANGE FROM COMPARISON. Scattered benign-appearing nodules are present. Scattered benign-appearing calcifications are present. Scattered benign-appearing lymph nodes are present. RIGHT BREAST: No significant suspicious finding. LEFT BREAST: No significant suspicious finding. Multiple rim calcified likely oil cysts in the left breast, stable. RECOMMENDATIONS: ROUTINE MAMMOGRAM AND CLINICAL EVALUATION IN 12 MONTHS. PLEASE NOTE: A NORMAL MAMMOGRAM DOES NOT EXCLUDE THE POSSIBILITY OF BREAST CANCER. A CLINICALLY SUSPICIOUS PALPABLE LUMP SHOULD BE BIOPSIED. Dictated by: Rich Shankar MD on 03/26/2024 at 12:46 Approved by: Rich Shankar MD on 03/26/2024 at 12:48 Dictated By: Rich Shankar M.D. Signed By: 03/26/24 1248 DD/ 1248 TD/TT: Metal Door Assembler: Procedure Note Radiology, Radiologist, - 03/26/2024 [place] [address] Mammography Report Signed Patient: JENNIE BEY KMR#: [id number] : 1950Acct:[id number] Age/Sex: 73 / FADM Date: 03/26/24 Loc: MAMMO Attending Dr: MARIA DE JESUS BETHEA Ordering Physician: MARIA DE JESUS BETHEAResults: Date of Service: 03/26/24Follow Up: Procedure(s): MM tomosynthesis screening BI Accession Number(s): [id number] cc: MARIA DE JESUS BETHEA Patient Name: JENNIE BEY MR#: [id number] : 1950 Exam Date: 03/26/2024 Ordering Doctor: DR MARIA DE JESUS BETHEA M.D. RADIOLOGY REPORT PROCEDURE: MM TOMOSYNTHESIS SCREENING BI COMPARISON: MG MAMM SCREEN 3D OWEN CAD, 01/05/2022. MM TOMOSYNTHESIS SCREENING BI, 03/15/2023. INDICATIONS: Screening for malignant neoplasm Calculator Name NCI Breast Cancer Risk Assessment Tool 5 Year Breast Cancer Risk 2.40% Lifetime Breast Cancer Risk 5.90% Personal Breast Cancer No Personal Ovarian Cancer No Treatments None Family Cancers Father with lung cancer at age 72. LOCATION: [facility] BREAST COMPOSITION: There are scattered areas of fibroglandulardensity. FINDINGS: DIAGNOSTIC CATEGORY 2--BENIGN FINDING. NO CHANGE FROM COMPARISON. Scattered benign-appearing nodules are present. Scatteredbenign-appearing calcifications are present. Scattered benign-appearing lymph nodes are present. RIGHT BREAST: No significant suspicious finding. LEFT BREAST: No significant suspicious finding. Multiple rim calcified likely oil cysts in the left breast, stable. RECOMMENDATIONS: ROUTINE MAMMOGRAM AND CLINICAL EVALUATION IN 12 MONTHS. PLEASE NOTE: A NORMAL MAMMOGRAM DOES NOT EXCLUDE THE POSSIBILITY OFBREAST CANCER. A CLINICALLY SUSPICIOUS PALPABLE LUMP SHOULD BE BIOPSIED. Dictated by: Rich Shankar MD on 03/26/2024 at 12:46 Approved by: Rich Shankar MD on 03/26/2024 at 12:48 Dictated By: Rich Shankar M.D. Signed By:03/26/24 1248 DD/ 1248 TD/TT: Metal Door Assembler: Maria De Jesus Bethea MD [facility] Final Result documented in this encounter Visit Diagnoses Not on filedocumented in this encounter Additional Health Concerns Assessment Noted Time PHQ-9 Depression Total Score: 0 11/01/19 24 8:00 AM EDT documented as of this encounter Care Teams Dryland Farmer Relationship Specialty Start Date End Date Maria De Jesus Bethea MD 112 [facility] 110 [place] [address] PCP - [employer] 07/10/17 Maria De Jesus Bethea MD [address] [facility] 110 [place] [address] PCP - General Internal Medicine 01/17/23 documented as of this encounter
--- OUTSIDE RECORDS SUMMARY | 2025-02-25 10:34 | XMS_ITS | Clinical Summary ---
Author Organization [facility] Address [address] [place] [address] Care Team Providers Care Power Grader Operator Name Role Phone Maria De Jesus Bethea MD Unavailable [phone] Maria De Jesus Bethea MD Primary Care Provider [phone] Allergies No known active allergies Medications Multiple Vitamins-Minerals (OCUVITE ADULT 50+ PO) Daily. Active cholecalciferol (Vitamin D-3) 50 MCG (1999) capsule Take 1 capsule by mouth in the morning. Active magnesium oxide (Mag-Ox) 400 MG tablet Take 400 mg by mouth in the morning. Active amLODIPine (Norvasc) 5 MG tabletIndications:E ssential (primary) hypertension Take 1 tablet (5 mg) by mouth Daily 90 tablet 5 4 Active atenolol (Tenormin) 25 MG tabletIndications:E ssential (primary) hypertension TAKE 1 TABLET BY MOUTH EVERY DAY 90 tablet 4 5 Active levothyroxine (Synthroid, Levoxyl) 100 MCG tabletIndications:A cquired hypothyroidism TAKE 1 TABLET BY MOUTH ONCE EVERY MORNING ON AN EMPTY STOMACH 90 tablet 4 5 Active Active Problems Problem Noted Date Diagnosed Date Class 2 obesity without seri ous comorbidity with body mass index (BMI) of 36.0 to 36.9 in adult 09/11/2024 Acquired hypothyroidism 01/16/2023 Decreased estrogen level 01/16/2023 Diverticulosis 01/16/2023 Essential (primary) hypertension 01/16/2023 Internal hemorrhoids 01/16/2023 Osteoarthritis of knee 01/16/2023 Primary osteoarthritis 01/16/2023 Encounters Date Type Department Care Team Description 02/13/2025 9:20 AM EDT Clinical Support [facility] [address] [facility] [address] [place] [address] Po Cha DPM Capsulitis of metatarsophalangeal (MTP) joint of left foot (Primary Dx); Metatarsal deformity, left; Contracture of left ankle 02/13/2025 Bamboo flowsheet [facility] [address] [facility] [address] [place] [address] Po Cha DPM 02/13/2025 Travel 01/17/20[facility] [address] [facility] [address] [place] [address] Maria De Jesus Bethea MD Acquired hypothyroidism 01/16/2025 10:20 AM EDT Ancillary Procedure [facility] [address] [facility] [address] [place] [address] 01/16/2025 10:20 AM EDT Office Visit [facility] [address] [facility] [address] [place] [address] Po Cha DPM Hav (hallux abducto valgus), left (Primary Dx); Contracture of left ankle; Metatarsal deformity, left; Capsulitis of metatarsophalangeal (MTP) joint of left foot 01/16/2025 Bamboo flowsheet [facility] [address] [facility] [address] [place] [address] Po Cha DPM 01/16/2025 Travel 12/21/2024 Refill [facility] [place] [facility] [address] [facility] [address] [place] [address] Maria De Jesus Bethea MD Essential (primary) hypertension from Last 3 Months Immunizations Immunization Administration Dates Next Due Influenza, High-dose Seasona l, Quadrivalent, Preservative Free 05/01/2020 Pneumococcal Conjugate PCV 20 11/07/2023 Family History Medical History Relation Name Comments Cancer Father Hypertension Mother Relation Name Status Comments Brother 1 Alive Brother 2 Alive Father Mother (Age 99) Sister Alive Social History Tobacco Use Types Packs/Day Years [...] Sign Reading Time Taken Comments Blood Pressure 130/72 09/11/2024 8:52 AM EST Pulse 70 09/11/2024 8:52 AM EST Temperature 36.4 C (97.5 F) 06/11/2024 9:56 AM EST Respiratory Rate 16 02/13/2025 9:08 AM EDT Oxygen Saturation 97% 09/11/2024 8:52 AM EST Inhaled Oxygen Concentration - - Weight 106 kg (233 lb) 02/13/2025 9:08 AM EDT Height 170.2 cm (5' 7 ) 02/13/2025 9:08 AM EDT Body Mass Index 36.49 02/13/2025 9:08 AM EDT Plan of Treatment Upcoming Encounters Date Type Department Care Team (Late st Contact Info) Description 03/19/2025 10:00 AM EDT Office Visit [facility] [place] [facility] [address] [facility] [address] [place] [address] Maria De Jesus Bethea MD 112 [facility] 110 [place] [address] Health Maintenance Due Date Last Done Comments CT Colonography 1950 FIT-DNA 1950 FIT 1950 FOBT 1950 Sigmoidoscopy 1950 Influenza Vaccine (#1) 2025 05/01/2020 Mammogram 03/26/2025 03/26/2024, 09/0 12/2022, 03/15/2023, Additional history exists Medicare Annual Wellness (AWV) 09/11/2025 0 09/11/2024, 11/01/2023, 01/18/2023 Colonoscopy 09/26/2028 09/26/2018 Colorectal Cancer Screening 09/26/2028 Pneumococcal Vaccine: 65+ Years Completed 4 Procedures Procedure Name Priority Date/Time Associated Diagnosis Comments XR FOOT 3+ VIEWS LEFT Routine 01/16/2025 10:15 AM EDT Hav (hallux abducto valgus), left MM TOMOSYNTHESIS SCREENING BI 03/26/2024 12:48 PM EDT COLONOSCOPY Routine 09/26/2018 12:00 PM EDT from Last 3 Months or Most Recently Relevant to Health Maintenance Results * XR foot 3+ views left (01/16/2025 10:15 AM EDT) Anatomical Region Laterality Modality Lower Extremities, Foot Left Radiogra phic Imaging Narrative 01/16/2025 10:17 AM EDT Imaging Result: Notable left great toe hallux rigidus and degenerative changes to the 1st MPJ with notable tailor's bunion and 5th digital deformity and metatarsus adductus us Po Cha DPM IMG XR PROCEDURES Final Res ult * MM TOMOSYNTHESIS SCREENING BI (03/26/2024 12:48 PM EDT) Anatomical Region Laterality Modality Other 03/26/2024 12:4 8 PM EDT Narrative 03/26/2024 12:48 [place] [address] Mammography Report Signed Patient: JENNIE BEY MR#: [id number] : 1950 Acct:[id number] Age/Sex: 73 / F ADM Date: 03/26/24 Loc: MAMMO Attending Dr: MARIA DE JESUS BETHEA Ordering Physician: MARIA DE JESUS BETHEA Results: Date of Service: 03/26/24 Follow Up: Procedure(s): MM tomosynthesis screening BI Accession Number(s): [id number] cc: MARIA DE JESUS BETHEA Patient Name: JENNIE BEY MR#: [id number] : 1950 Exam Date: 03/26/2024 Ordering Doctor: [...] lung cancer at age 72. LOCATION: [facility] BREAST COMPOSITION: There are scattered areas of [...] Signed By: 03/26/24 1248 DD/ 1248 TD/TT: Paper Bundler: Procedure Note Radiology, Radiologist, MD - 03/26/2024 [place] [address] Mammography Report Signed Patient: JENNIE BEY KMR#: [id number] : 1950Acct:[id number] Age/Sex: 73 / FADM Date: 03/26/24 Loc: MAMMO Attending Dr: MARIA DE JESUS BETHEA Ordering Physician: MARIA DE JESUS BETHEAResults: Date of Service: 03/26/24Follow Up: Procedure(s): MM tomosynthesis screening BI Accession Number(s): [id number] cc: MARIA DE JESUS BETHEA Patient Name: JENNIE BEY MR#: [id number] : 1950 Exam Date: 03/26/2024 Ordering Doctor: [...] lung cancer at age 72. LOCATION: [facility] BREAST COMPOSITION: There are scattered areas of [...] M.D. Signed By:03/26/24 1248 DD/ 1248 TD/TT: Paper Bundler: us Maria De Jesus Bethea MD [facility] Final Result * Colonoscopy (09/26/2018 12:00 PM EDT) Anatomical Region Laterality Modality Endoscopy 09/26/2018 12:0 0 PM EDT Narrative 09/26/2018 12:00 PM EDT PERFORMED AT [facility] LOCATION:[id number] divertic/polyp-tub adenoma repeat 5 years Procedure Note CONVERSION, GENERIC - 11/23/2022 PERFORMED AT [facility] LOCATION:[id number] divertic/polyp-tub adenoma repeat 5 years us Maria De Jesus Bethea MD ENDOSCOPY PROCEDURE ORDERABLES Final Result from Last 3 Months or Most Recently Relevant to Health Maintenance Insurance [employer] Care Teams Power Grader Operator Relationship Specialty Start Date End Date Maria De Jesus Bethea MD [address] [facility] [address] [place] [address] PCP - [facility] 07/10/17 Maria De Jesus Bethea MD [address] [facility] [address] [place] [address] PCP - General Internal Medicine 01/17/23
--- OUTSIDE RECORDS SUMMARY | 2025-02-25 10:34 | XMS_ITS | Encounter Summary ---
Author Organization [facility] Address [address] [place] [address] Care Team Providers Care Printer Slotter Helper Name Role Phone Noah Bethea MD Unavailable [phone] Noah Bethea MD Primary Care Provider [phone] Encounter Details Date Type Department Care Team (Late Contact Info) Description 02/13/2025 Bamboo flowsheet [facility] 112 [facility] 120 [place] [address] Po Cha, DPHemant [address] [facility] 5 [place] [address] Social History Tobacco Use Types Packs/Day Years [...] 10:00 AM EDT Office Visit [facility] 112 [facility] 110 [place] [address] Noah Bethea MD 112 [facility] 110 [place], [place] [id number] documented as of this encounter Visit Diagnoses Not on filedocumented in this encounter Additional Health Concerns Assessment Noted Time PHQ-9 Depression Total Score: 0 11/01/19 24 8:00 AM EDT documented as of this encounter Care Teams Printer Slotter Helper Relationship Specialty Start Date End Date Noah Bethea MD 112 [facility] 110 [place] [address] PCP - [employer] 07/10/17 Noah Bethea MD 112 [facility] 110 [place] [address] PCP - General Internal Medicine 01/17/23 documented as of this encounter
--- OUTSIDE RECORDS SUMMARY | 2025-02-25 10:34 | XMS_ITS | Encounter Summary ---
Author Organization [facility] Address [address] [place] [address] Care Team Providers Care Broom Stitcher Name Role Phone Noah Bethea MD Unavailable [phone] Noah Bethea MD Primary Care Provider [phone] Encounter Details Date Type Department Care Team (Late st Contact Info) Description 09/11/2024 Abstract [facility] [facility] [address] [facility] 110 [place] [id number] Noah Bethea MD [address] [facility] [address] [place] [address] Social History Tobacco Use Types Packs/Day Years [...] Visit [facility] [place] [facility] [address] [facility] [address] [place] [address] Noah Bethea MD [address] [facility] [address] [place] [address] documented as of this encounter Visit Diagnoses Not on filedocumented in this encounter Additional Health Concerns Assessment Noted Time PHQ-9 Depression Total Score: 0 11/01/19 24 8:00 AM EDT documented as of this encounter Care Teams Broom Stitcher Relationship Specialty Start Date End Date Noah Bethea MD [address] [facility] [address] [place] [address] PCP - [employer] 07/10/17 Noah Bethea MD [address] [facility] [address] [place] [address] PCP - General Internal Medicine 01/17/23 documented as of this encounter
--- OUTSIDE RECORDS SUMMARY | 2025-02-25 10:34 | XMS_ITS | Encounter Summary ---
Author Organization [facility] Address [address] [place] [address] Care Team Providers Care Movie Editor Name Role Phone Noah Bethea MD Unavailable [phone] Noah Bethea MD Primary Care Provider [phone] Encounter Details Date Type Department Care Team (Late Contact Info) Description 03/03/2023 Abstract [facility] [address] [facility] [address] [place] [address] Belen Corrales NP Social History Tobacco Use Types Packs/Day Years Used Date Smoking Tobacco: Former Cigarettes Q uit: 10/16/1991 Smokeless Tobacco: Never Tobacco Cessation:Counseling Given: Not Answered Alcohol Use Standard Drinks/Week Comments Never 0 [...] 10:00 AM EDT Office Visit [facility] [address] [facility] [facility] 110 [place] [address] Noah Bethea MD [address] [facility] 110 [place], [place] [address] documented as of this encounter Visit Diagnoses Not on filedocumented in this encounter Care Teams Movie Editor Relationship Specialty Start Date End Date Noah Bethea MD [address] [facility] 110 [place] [address] PCP - [employer] 07/10/17 Noah Bethea MD [address] [facility] 110 [place] [address] PCP - General Internal Medicine 01/17/23 documented as of this encounter
--- OUTSIDE RECORDS SUMMARY | 2025-02-25 10:34 | XMS_ITS | Encounter Summary ---
Author Organization [facility] Address [address] [place] [address] Care Team Providers Care Medical Office Scheduler Name Role Phone Noah Bethea MD Unavailable [phone] Noah Bethea MD Primary Care Provider [phone] Encounter Details Date Type Department Care Team (Late st Contact Info) Description 09/11/2024 Abstract [facility] [place] [facility] [address] [facility] 110 [place] [address] Noah Bethea MD [address] [facility] [address] [place] [address] Social History Tobacco Use Types Packs/Day Years [...] Visit [facility] [place] [facility] [address] [facility] [address] [place] [address] Noah Bethea MD [address] [facility] [address] [place] [address] documented as of this encounter Visit Diagnoses Not on filedocumented in this encounter Additional Health Concerns Assessment Noted Time PHQ-9 Depression Total Score: 0 11/01/19 24 8:00 AM EDT documented as of this encounter Care Teams Medical Office Scheduler Relationship Specialty Start Date End Date Noah Bethea MD [address] [facility] [address] [place] [address] PCP - [employer] 07/10/17 Noah Bethea MD [address] [facility] [address] [place] [address] PCP - General Internal Medicine 01/17/23 documented as of this encounter
--- NOTE | 2025-02-25 10:50 | XR_ITS ---
[facility] [place] [id number] Patient Name: RIGOBERTO BARRIOS MRN: [id number] date: 1950 Sex: F Assigned Patient Location: [facility] Current Patient Location: [facility] Accession/Order Number: [id number] Exam Date: 02/25/2025 11:52 Report Date: 02/25/2025 11:54 At the request of: CARMEN TORRES MD Procedure: XR knee RT 4V 4 views right knee CLINICAL HISTORY: m25.561 pain in right knee COMPARISON: None FINDINGS: Moderate severe medial compartment and patellofemoral compartment degenerative changes. Spurring greatest medial compartment and along the patellofemoral marker. Suspect quadriceps tendon enthesopathy versus bulky spurring involving the superior margin of the patella. Small joint effusion. XR/XR knee RT 4V IMPRESSION: Moderate to severe degenerative changes greatest medial and patellofemoral compartment. Impression dictated by: Alberto Restrepo M.D. 02/25/2025 11:54 AM Dictation Location: [place] [address] Electronically authenticated by: [id number] Y Date: 02/25/2025 11:54
--- NOTE | 2025-02-25 10:50 | XR_ITS ---
[address] [address] Patient Name: RIGOBERTO BARRIOS MRN: [id number] date: 1950 Sex: F Assigned Patient Location: [facility] Current Patient Location: [facility] Accession/Order Number: [id number] Exam Date: 02/25/2025 11:50 Report Date: 02/25/2025 11:52 At the request of: CARMEN TORRES MD Procedure: XR pelvis 1-2V AP PELVIS: CLINICAL HISTORY: m25.561 pain in right knee COMPARISON: None Mild right-sided moderate left-sided joint space narrowing hips. No fractures age. Mild spurring both sacral joints. No diastases of the sacroiliac joints or pubic symphysis. Question pelvic phleboliths degenerative changes lower spine. No fractures or dislocation. XR/XR pelvis 1-2V IMPRESSION: NO ACUTE BONY FINDINGS. [id number] DEGENERATIVE CHANGE. Impression dictated by: Alberto Restrepo M.D. 02/25/2025 11:52 AM Dictation Location: [place] [address] Electronically authenticated by: [id number] Y Date: 02/25/2025 11:52
--- OUTSIDE RECORDS SUMMARY | 2025-02-25 13:43 | XMS_ITS | CCD ---
Author Organization [facility] Care Team Providers Care Bag Checker Name Role Phone Gerri Sanchez Unavailable DR NOAH BETHEA Attending Unavailable DEJA, DR PRETTY Consulting Unavailable DR NOAH BETHEA Admitting Unavailable OLU GUZMAN Primary Care Unavailable KOBY, DR ISAIAS Natarajan Consulting Unavailable OLU GUZMAN Attending Unavailable OLU GUZMAN Consulting Unavailable OLU GUZMAN Primary Care Unavailable OLU GUZMAN Admitting Unavailable OLU GUZMAN Admitting Unavailable OLU GUZMAN Attending Unavailable WAYNE, DR RIVER Silva Consulting Unavailable OLU GUZMAN Primary Care Unavailable OLU GUZMAN Consulting Unavailable Cassandra De La Rosa Unavailable Noah Bethea MD Unavailable Noah Bethea MD Primary Care Provider NOAH BETHEA Attending Unavailable PO CHA Attending Unavailable PO CHA Referring Unavailable PO CHA Attending Unavailable NOAH BETHEA Attending Unavailable GRACE BEAN Attending Unavailable Medications Current Medications Medication Drug Class(es) Dates Sig (Normalized) Sig (Original) [id number] actuat albuterol 0.09 mg/actuat metered dose inhaler (1 source) beta2-Adrenergic Agonist Start: 07-09-2023 take 2 puff(s) by inhalation every four to six hours as needed Albuterol Sulfate HFA 108 (90 Base) MCG/ACT 2 puffs as needed Inhalation every 4-6 hours for 14 days Jun, Active amLODIPine 5 mg oral tablet (18 sources) Dihydropyridine Calcium Channel Dana Start: 01-23-2024 take 1 tablet by mouth once daily amLODIPine (Norvasc) 5 MG tablet Indications: Essential (primary) hypertension Take 1 tablet (5 mg) by mouth Daily 90 tablet 5 01/23/2024 Active amLODIPine Besyl ate 5 MG Oral for 90 Days Active ascorbic acid 500 mg chewable tablet (1 source) Vitamin C Vitamin C 500 MG as directed Orally daily Active atenolol 25 mg oral tablet (18 sources) beta-Adrenergic Dana Start: 12-23-2024 take 1 tablet by mouth once daily atenolol (Tenormin) 25 MG tablet Indications: Essential (primary) hypertension TAKE 1 TABLET BY MOUTH EVERY DAY 90 tablet 4 12/23/2024 Active Start: 12-27-2023 take 1 tablet by carmenza th once daily atenolol (Tenormin) 25 MG tablet Indications: Essential (primary) hypertension (CMS/HCC) TAKE 1 TABLET BY MOUTH EVERY DAY FOR 100 DAYS 100 tablet 3 12/27/2023 Active Atenolol 25 MG O ral for 90 Days Active azithromycin 250 mg oral tablet (1 source) Macrolide Antimicrobial Start: 07-09-2023 Azithromycin 250 MG 2 tablet on the first day, then 1 tablet daily for 4 days Orally Once a day for 5 day(s) Jun, Active benzonatate 100 mg oral capsule (1 source) Non-narcotic Antitussive Start: 07-09-2023 take 1 capsule by mouth three times daily as needed Tessalon Perles 100 MG 1 capsule as needed Orally Three times a day for 7 days Jun, Active biotin 1 mg oral tablet (2 sources) take 1 tablet by mouth every twenty-four hours Biotin 1000 MCG 1 tablet Orally Once a day for 30 day(s) Active take 1 tablet by carmenza th every twenty-four hours Biotin 1000 MCG 1 tablet Orally Once a day for 30 day(s) Active cefdinir 300 mg oral capsule (2 sources) Cephalosporin Antibacterial Start: 06-11-2024 End: 06-21-2024 take 1 capsule by mouth in the morning cefdinir (Omnicef) 300 MG capsule Indications: Acute non-recurrent pansinusitis Take 1 capsule (300 mg) by mouth in the morning and 1 capsule (300 mg) before bedtime. Do all this for 10 days. 20 capsule 06/11/2024 06/21/2024 Active cholecalciferol 0.05 mg oral capsule (17 sources) Vitamin D take 1 capsule by mouth in the morning cholecalciferol (Vitamin D-3) 50 MCG (2000 UT) capsule Take 1 capsule by mouth in the morning. Active green tea extract 315 mg oral capsule (2 sources) take 315 mg by mouth once daily Green Tea (Laina sinensis) 315 MG as directed Orally daily Active levothyroxine sodium 0.1 mg oral tablet (19 sources) l-Thyroxine Start: 01-17-2025 take 1 tablet by mouth once daily in the morning levothyroxine (Synthroid, Levoxyl) 100 MCG tablet Indications: Acquired hypothyroidism TAKE 1 TABLET BY MOUTH ONCE EVERY MORNING ON AN EMPTY STOMACH 90 tablet 4 01/17/2025 Active Start: 11-06-2023 take 1 tablet by carmenza th once daily in the morning levothyroxine (Synthroid, Levoxyl) 100 MCG tablet Indications: Acquired hypothyroidism TAKE 1 TABLET BY MOUTH ONCE EVERY MORNING ON AN EMPTY STOMACH 90 tablet 4 11/06/2023 Active Synthroid 150 MC G 1 tablet every morning on an empty stomach Orally Once a day Active Synthroid 150 MC G 1 tablet every morning on an empty stomach Orally Once a day Active lisinopril 40 mg oral tablet (2 sources) Angiotensin Converting Enzyme Inhibitor take 1 tablet by mouth every twenty-four hours Lisinopril 40 MG 1 tablet Orally Once a day for 30 day(s) Active magnesium oxide 400 mg oral tablet (17 sources) take 1 tablet by mouth in the morning magnesium oxide (Mag-Ox) 400 MG tablet Take 400 mg by mouth in the morning. Active methylPREDNISolone (3 sources) Corticosteroid Start : 06-11 End: 06-18 methylPREDNISolone (Medrol Dospak) 4 MG tablets Indications: Acute non-recurrent pansinusitis Follow schedule on package instructions 21 tablet 06/11/2024 06/18/2024 Active Start: 07-09-2023 methylPREDNISo lone 4 MG as directed Orally for 6 Jun, Active Multiple Vitamins-Minerals (OCUVITE ADULT 50+ PO) (17 sources) Multiple Vitamin s-Minerals (OCUVITE ADULT 50+ PO) Daily. Active Vitamin C 500 MG (1 source) Vitamin C 500 MG as directed Orally daily Active Vitamin D 400 UNIT (2 sources) take 1 capsule by mouth once daily Vitamin D 400 UNIT 1 capsule Orally Once a day for 30 day(s) Active Womens One Daily (2 sources) Womens One Daily as directed Orally daily Active Completed/Discontinued Medications Medication Drug Class(es) Dates Sig (Normalized) Sig (Original) Lidocaine (2 sources) Antiarrhythmic, Amide Local Anesthetic Start: 06-04-2021 Lidocaine 0.5 % as directed Externally q2h prn Apply a small amount to the painful rash every 2 hours as needed for pain. May, Not-Taking/PRN Start: 06-04-2021 Lidocaine 0.5 % as directed Externally q2h prn Apply a small amount to the painful rash every 2 hours as needed for pain. May, Active valACYclovir 1000 mg oral tablet (2 sources) Herpesvirus Nucleoside Analog DNA Polymerase Inhibitor, Herpes Simplex Virus Nucleoside Analog DNA Polymerase Inhibitor, Herpes Zoster Virus Nucleoside Analog DNA Polymerase Inhibitor Start: 06-04-2021 take 1 tablet by mouth every eight hours valACYclovir HCl 1 GM 1 tablet Orally tid for 7 days May, Not-Taking/PRN Start: 06-04-2021 take 1 tablet by carmenza th every eight hours valACYclovir HCl 1 GM 1 tablet Orally tid for 7 days May, Active Problems Active Problems Problem Classification Problem Date Documented Date Episodic/Chronic Acquired foot deformities (2 sources) Hallux valgus (acquired), left foot; Translations: [Hallux valgus (acquired)] 01-16-2025 Chronic Administrative/socia l admission (2 sources) Patient encounter status; Translations: [Other specified counseling] 09-11-2024 Episodic Chronic obstructive pulmonary disease and bronchiectasis (1 source) Bronchitis, not specified as acute or chronic Episodic Diverticulosis and diverticulitis (17 sources) Diverticular disease; Translations: [Diverticulosis of intestine, part unspecified, without perforation or abscess without bleeding] Onset: 3 01-16-2023 Chronic Essential hypertension (20 sources) Essential (primary) hypertension; Translations: [Essential hypertension] Onset: 1 01-16-2023 Chronic Menopausal disorders (18 sources) Other primary ovarian failure; Translations: [Decreased estrogen level] Onset: 2 01-16-2023 Chronic Osteoarthritis (20 sources) Osteoarthritis of knee; Translations: [Osteoarthritis of knee, unspecified] Onset: 3 01-16-2023 Chronic Other acquired deformities (3 sources) Contracture of joint of left ankle; Translations: [Contracture, left ankle] 01-16-2025 Chronic Other acquired deformities (3 sources) Deformity of metatarsal; Translations: [Unspecified acquired deformity of left lower leg] 01-16-2025 Episodic Other connective tissue disease (3 sources) Capsulitis of metatarsophalangeal joint of left foot; Translations: [Other enthesopathy of left foot and ankle] 01-16-2025 Episodic Other nutritional; endocrine; and metabolic disorders (13 sources) Obesity; Translations: [Obesity (BMI 30.0-34.9)] Onset: 5 09-11-2024 Chronic Other skin disorders (2 sources) Alopecia; Translations: [Hair loss] Episodic Other upper respiratory infections (2 sources) Acute pansinusitis; Translations: [Acute pansinusitis, unspecified] 06-11-2024 Episodic Residual codes; unclassified (1 source) Family history of malignant neoplasm of trachea, bronchus and lung; Translations: [FAM HX MALIG NEOPLSM TRACH BRON LNG] Onset: 2 Episodic Thyroid disorders (20 sources) Renan thyroiditis; 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] Onset: 1 Chronic Unclassified (3 sources) Unspecified lump in the left breast, overlapping quadrants; Translations: [UNS LUMP LT BREAST OVRLPNG QUADRNTS] Onset: 1 Past or Other Problems Problem Classification Problem Date Documented Date Episodic/Chronic Hemorrhoids (17 sources) Internal hemorrhoids; Translations: [Other hemorrhoids] Onset: 01-16-2023 01-16-2023 Episodic Mood disorders (17 sources) Mood disorders Onset: 11-01-2023 11-01-2023 Nonmalignant breast conditions (1 source) Solitary cyst of left breast; Translations: [SOLITARY CYST OF LEFT BREAST] Onset: 04-12-2021 Episodic Other screening for suspected conditions (not mental disorders or infectious disease) (6 sources) Encounter for screening mammogram for malignant neoplasm of breast; Translations: [Patient encounter status] Onset: 01-05-2022 Episodic Unclassified (1 source) Acute cough R05.1 Viral infection (1 source) Zoster without complications Onset: 06-04-2021 Resolved: 06-04-2021 Episodic Results Test Name Value Interpretation Reference Range Facility XR Knee - right 4 [facility] [place] [id number] XRay Report Signed Patient: RIGOBERTO BARRIOS MR#: [id number] : 1950 Acct:[id number] Age/Sex: 74 / F ADM Date: 02/25/25 Loc: [facility] Attending Dr: Carmen Torres M.D. Ordering Physician: Carmen Torres Date of Service: 02/25/25 Procedure(s): XR knee RT 4V Accession Number(s): [id number] cc: NOAH BETHEA ; Carmen Torres [place] [address] Patient Name: RIGOBERTO BARRIOS MRN: [facility]:[id number] date: 1950 Sex: F Assigned Patient Location: [facility] Current Patient Location: [facility] Accession/Order Number: [id number] Exam Date: 02/25/2025 11:52 Report Date: 02/25/2025 11:54 At the request of: CARMEN TORRES MD Procedure: XR knee RT 4V 4 views right knee CLINICAL HISTORY: m25.561 pain in right knee COMPARISON: None FINDINGS: Moderate severe medial compartment and patellofemoral compartment degenerative changes. Spurring greatest medial compartment and along the patellofemoral marker. Suspect quadriceps tendon enthesopathy versus bulky spurring involving the superior margin of the patella. Small joint effusion. XR/XR knee RT 4V IMPRESSION: Moderate to severe degenerative changes greatest medial and patellofemoral compartment. Impression dictated by: Alberto Restrepo M.D. 02/25/2025 11:54 AM Dictation Location: [place] [address] Electronically authenticated by: [id number] Y Date: 02/25/2025 11:54 Dictated By: Alberto Restrepo M.D. Signed By: 02/25/25 1156 DD/ 1154 TD/TT: Hydrochloric Acid Operator: [facility] Radiology, Radiologist, - 02/25/2025 [place] [address] XRay Report Signed Patient: RIGOBERTO BARRIOS MR#: [id number] : 1950 Acct:[id number] Age/Sex: 74 / F ADM Date: 02/25/25 Loc: [facility] Attending Dr: Carmen Torres M.D. Ordering Physician: Carmen Torres Date of Service: 02/25/25 Procedure(s): XR knee RT 4V Accession Number(s): [id number] cc: NOAH BETHEA ; Carmen Torres [place] [id number] Patient Name: RIGOBERTO BARRIOS MRN: [id number] date: 1950 Sex: F Assigned Patient Location: [facility] Current Patient Location: [facility] Accession/Order Number: [id number] Exam Date: 02/25/2025 11:52 Report Date: 02/25/2025 11:54 At the request of: CARMEN TORRES MD Procedure: XR knee RT 4V 4 views right knee CLINICAL HISTORY: m25.561 pain in right knee COMPARISON: None FINDINGS: Moderate severe medial compartment and patellofemoral compartment degenerative changes. Spurring greatest medial compartment and along the patellofemoral marker. Suspect quadriceps tendon enthesopathy versus bulky spurring involving the superior margin of the patella. Small joint effusion. XR/XR knee RT 4V IMPRESSION: Moderate to severe degenerative changes greatest medial and patellofemoral compartment. Impression dictated by: Alberto Restrepo M.D. 02/25/2025 11:54 AM Dictation Location: [place] [address] Electronically authenticated by: [id number] Y Date: 02/25/2025 11:54 Dictated By: Alberto Restrepo M.D. Signed By: 02/25/25 1156 DD/ 1154 TD/TT: Hydrochloric Acid Operator: [facility] [address] [facility] Radiology Study observation (narrative) [facility] XR Knee - right 4 ViewsOrder ed By: Radiologist Radiology on 02-25-2025 [facility] [employer] Work Phone: XR Pelvis 1 or [address] [address] XRay Report Signed Patient: RIGOBERTO BARRIOS MR#: [id number] : 1950 Acct:[id number] Age/Sex: 74 / F ADM Date: 02/25/25 Loc: [facility] Attending Dr: Carmen Torres M.D. Ordering Physician: Carmen Torres Date of Service: 02/25/25 Procedure(s): XR pelvis 1-2V Accession Number(s): [id number] cc: NOAH BETHEA ; Carmen Torres [facility] [place] [address] Patient Name: RIGOBERTO BARRIOS MRN: [facility]:[id number] date: 1950 Sex: F Assigned Patient Location: [facility] Current Patient Location: [facility] Accession/Order Number: [id number] Exam Date: 02/25/2025 11:50 Report Date: 02/25/2025 11:52 At the request of: CARMEN TORRES MD Procedure: XR pelvis 1-2V AP PELVIS: CLINICAL HISTORY: m25.561 pain in right knee COMPARISON: None Mild right-sided moderate left-sided joint space narrowing hips. No fractures age. Mild spurring both sacral joints. No diastases of the sacroiliac joints or pubic symphysis. Question pelvic phleboliths degenerative changes lower spine. No fractures or dislocation. XR/XR pelvis 1-2V IMPRESSION: NO ACUTE BONY FINDINGS. [id number] DEGENERATIVE CHANGE. Impression dictated by: Alberto Restrepo M.D. 02/25/2025 11:52 AM Dictation Location: [place] [address] Electronically authenticated by: [id number] Y Date: 02/25/2025 11:52 Dictated By: Alberto Restrepo M.D. Signed By: 02/25/25 1154 DD/ 1152 TD/TT: Hydrochloric Acid Operator: [facility] Radiology, Radiologist, MD - 02/25/2025 [place] [address] XRay Report Signed Patient: RIGOBERTO BARRIOS MR#: [id number] : 1950 Acct:[id number] Age/Sex: 74 / F ADM Date: 02/25/25 Loc: RAD Attending Dr: Carmen Torres M.D. Ordering Physician: Carmen Torres Date of Service: 02/25/25 Procedure(s): XR pelvis 1-2V Accession Number(s): [id number] cc: NOAH BETHEA ; Carmen Torres [place] [address] Patient Name: RIGOBERTO BARRIOS MRN: [id number] date: 1950 Sex: F Assigned Patient Location: [facility] Current Patient Location: [facility] Accession/Order Number: [id number] Exam Date: 02/25/2025 11:50 Report Date: 02/25/2025 11:52 At the request of: CARMEN TORRES MD Procedure: XR pelvis 1-2V AP PELVIS: CLINICAL HISTORY: m25.561 pain in right knee COMPARISON: None Mild right-sided moderate left-sided joint space narrowing hips. No fractures age. Mild spurring both sacral joints. No diastases of the sacroiliac joints or pubic symphysis. Question pelvic phleboliths degenerative changes lower spine. No fractures or dislocation. XR/XR pelvis 1-2V IMPRESSION: NO ACUTE BONY FINDINGS. [id number] DEGENERATIVE CHANGE. Impression dictated by: Alberto Restrepo M.D. 02/25/2025 11:52 AM Dictation Location: [place] [address] Electronically authenticated by: [id number] Y Date: 02/25/2025 11:52 Dictated By: Alberto Restrepo M.D. Signed By: 02/25/25 1154 DD/ 1152 TD/TT: Hydrochloric Acid Operator: [employer] Radiology Study observation (narrative) [facility] [place] [address] [facility] XR Pelvis 1 or 2 ViewsOrdere d By: Radiologist Radiology on 02-25-2025 [place] Work Phone: XR Foot - left 3 [facility] Result: Notable left great toe hallux rigidus and degenerative changes to the 1st MPJ with notable tailor's bunion and 5th digital deformity and metatarsus adductus [facility] Radiology Study observation (narrative) [facility] CBC (INCLUDES DIFF/PLT)on Basophils (Bld) [#/Vol] 0.039 10*3/uL Normal 0-200 [facility] Comment on above: Performed By: #### 6 399, 7600, 13524 #### [facility] of [address], [address] [place] [address] Final Inspection Supervisor: John Crooks MD Basophils/100 WBC (Bld) 0.6 % Normal [facility] Comment on above: Performed By: #### 6 399, 7600, 23486 #### [facility] of [address], [address] [place] [address] Final Inspection Supervisor: John Crooks MD Eosinophils (Bld) [#/Vol] 0.143 10*3/uL Normal 15-500 [facility] Comment on above: Performed By: #### 6 399, 7600, 15246 #### [facility] of [address], [address] [place] [address] Final Inspection Supervisor: John Crooks MD Eosinophils/100 WBC (Bld) 2.2 % Normal [facility] Comment on above: Performed By: #### 6 399, 7600, 32334 #### [facility] [place] [address] Final Inspection Supervisor: John Crooks MD Erythrocyte distribution width (RBC) [Ratio] 13.0 % Normal 11.0-15.0 [facility] Comment on above: Performed By: #### 6 399, 7600, 65208 #### [facility] of [address], [address] [place] [address] Final Inspection Supervisor: John Crooks MD Hematocrit (Bld) [Volume fraction] 40.9 % Normal 35.0-45.0 [facility] Comment on above: Performed By: #### 6 399, 7600, 12453 #### [facility] [place] [address] Final Inspection Supervisor: John Crooks MD Hemoglobin (Bld) [Mass/Vol] 13.5 g/dL Normal 11.7-15.5 [facility] Comment on above: Performed By: #### 6 399, 7600, 63389 #### [facility] of [place] [address] Final Inspection Supervisor: John Crooks MD Lymphocytes (Bld) [#/Vol] 1.814 10*3/uL Normal 850-3900 [facility] Comment on above: Performed By: #### 6 399, 7600, 71374 #### [facility] [address], [address] [place] [address] Final Inspection Supervisor: John Crooks MD Lymphocytes/100 WBC (Bld) 27.9 % Normal [facility] Comment on above: Performed By: #### 6 399, 7600, 53853 #### [facility] [place] [address] Final Inspection Supervisor: John Crooks MD MCH (RBC) [Entitic mass] 30.1 pg Normal 27.0-33.0 [facility] Comment on above: Performed By: #### 6 399, 7600, 26350 #### [facility] of [place] [address] Final Inspection Supervisor: John Crooks MD MCHC (RBC) [Mass/Vol] 33.0 g/dL Normal 32.0-36.0 [facility] Comment on above: Result Comment: For adults, a slight decrease in the calculated MCHC value (in the range of 30 to 32 g/dL) is most likely not clinically significant; however, it should be interpreted with caution in correlation with other red cell parameters and the patient's clinical condition. Performed By: #### 6 399, 7600, 95862 #### [facility] [place] [address] Final Inspection Supervisor: John Crooks MD MCV (RBC) [Entitic vol] 91.1 fL Normal 80.0-100.0 [facility] Comment on above: Performed By: #### 6 399, 7600, 53479 #### [facility] of [address], [address] [place] [address] Final Inspection Supervisor: John Crooks MD Monocytes (Bld) [#/Vol] 0.65 10*3/uL Normal 200-950 [facility] Comment on above: Performed By: #### 6 399, 7600, 30412 #### [facility] of [address], [address] [place] [address] Final Inspection Supervisor: John Crooks MD Monocytes/100 WBC (Bld) 10.0 % Normal [facility] Comment on above: Performed By: #### 6 399, 7600, 82216 #### [facility] of [address], [address] [place] [address] Final Inspection Supervisor: John Crooks MD Neutrophils (Bld) [#/Vol] 3.855 10*3/uL Normal 5028-0084 [facility] Comment on above: Performed By: #### 6 399, 7600, 72736 #### [facility] of [address], [address] [place] [address] Final Inspection Supervisor: John Crooks MD Neutrophils/100 WBC (Bld) 59.3 % Normal [facility] Comment on above: Performed By: #### 6 399, 7600, 63034 #### [facility] of [address], [address] [place] [address] Final Inspection Supervisor: John Crooks MD Platelet mean volume (Bld) [Entitic vol] 10.5 fL Normal 7.5-12.5 [facility] Comment on above: Performed By: #### 6 399, 7600, 17191 #### [facility] of [address], [address] [place] [address] Final Inspection Supervisor: John Crooks MD Platelets (Bld) [#/Vol] 343 10*3/uL Normal 140-400 [facility] Comment on above: Performed By: #### 6 399, 7600, 08367 #### [facility] of [address], [address] [place], [place] [address] Final Inspection Supervisor: John Crooks MD RBC (Bld) [#/Vol] 4.49 10*6/uL Normal 3.80-5.10 [facility] Comment on above: Performed By: #### 6 399, 7600, 38563 #### [facility] of [address], [address] [place] [address] Final Inspection Supervisor: John Crooks MD WBC (Bld) [#/Vol] 6.5 10*3/uL Normal 3.8-10.8 [facility] Comment on above: Performed By: #### 6 399, 7600, 17077 #### [facility] of [place] [address] Final Inspection Supervisor: John Crooks MD COMPREHENSIVE METABOLIC PANE [facility] 09-12-2024 Albumin [Mass/Vol] 4.3 g/dL Normal 3.6-5.1 [facility] Comment on above: Performed By: #### 6 399, 7600, 64654 #### [facility] of [address], [address] [place] [address] Final Inspection Supervisor: John Crooks MD Albumin/Globulin [Mass ratio] 1.4 {ratio} Normal 1.0-2.5 [facility] Comment on above: Performed By: #### 6 399, 7600, 20802 #### [facility] of [address], [address] [place] [address] Final Inspection Supervisor: John Crooks MD ALP [Catalytic activity/Vol] 89 U/L Normal 37-153 [facility] Comment on above: Performed By: #### 6 399, 7600, 30071 #### [facility] of [address], [address] [place] [address] Final Inspection Supervisor: John Crooks MD ALT [Catalytic activity/Vol] 10 U/L Normal 6-29 [facility] Comment on above: Performed By: #### 6 399, 7600, 64424 #### [facility] of [place] [address] Final Inspection Supervisor: John Crooks MD AST [Catalytic activity/Vol] 17 U/L Normal 10-35 [facility] Comment on above: Performed By: #### 6 399, 7600, 78473 #### [facility] [address], [address] [place] [address] Final Inspection Supervisor: John Crooks MD Bilirubin [Mass/Vol] 1.1 mg/dL Normal 0.2-1.2 [facility] Comment on above: Performed By: #### 6 399, 7600, 44948 #### [facility] [address], [address] [place] [address] Final Inspection Supervisor: John Crooks MD BUN/CREATININE RATIO SEE NOTE: Normal 6-22 [facility] Comment on above: Result Comment: Not Reported: BUN and Creatinine are within reference range. Performed By: #### 6 399, 7600, 71821 #### [facility] [address], [address] [place] [address] Final Inspection Supervisor: John Crooks MD Calcium [Mass/Vol] 9.5 mg/dL Normal 8.6-10.4 [facility] Comment on above: Performed By: #### 6 399, 7600, 12424 #### [facility] [place] [address] Final Inspection Supervisor: John Crooks MD Chloride [Moles/Vol] 104 mmol/L Normal 98-110 [facility] Comment on above: Performed By: #### 6 399, 7600, 44331 #### [facility] of [address], [address] [place] [address] Final Inspection Supervisor: John Crooks MD CO2 [Moles/Vol] 29 mmol/L Normal 20-32 [facility] Comment on above: Performed By: #### 6 399, 7600, [id number] #### [facility] [place] [address] Final Inspection Supervisor: John Crooks MD Creatinine [Mass/Vol] 0.63 mg/dL Normal 0.60-1.00 [facility] Comment on above: Performed By: #### 6 399, 7600, 29981 #### [facility] of [address], [address] [place] [address] Final Inspection Supervisor: John Crooks MD GFR/1.73 sq M.predicted among non-blacks MDRD (S/P/Bld) [Vol rate/Area] 93 mL/min/{1.73_m2} Normal > OR = 60 [facility] Comment on above: Performed By: #### 6 399, 7600, 15889 #### [facility] [address], [address] [place] [address] Final Inspection Supervisor: John Crooks MD Globulin (S) [Mass/Vol] 3.0 g/dL Normal 1.9-3.7 [facility] Comment on above: Performed By: #### 6 399, 7600, [id number] #### [facility] [address], [address] [place] [address] Final Inspection Supervisor: John Crooks MD Glucose [Mass/Vol] 98 mg/dL Normal 65-99 [facility] Comment on above: Result Comment: Fasting reference interval Performed By: #### 6 399, 7600, [id number] #### [facility] [place] [address] Final Inspection Supervisor: John Crooks MD Potassium [Moles/Vol] 5.2 mmol/L Normal 3.5-5.3 [facility] Comment on above: Performed By: #### 6 399, 7600, 36568 #### [facility] [address], [address] [place] [address] Final Inspection Supervisor: John Crooks MD Protein [Mass/Vol] 7.3 g/dL Normal 6.1-8.1 [facility] Comment on above: Performed By: #### 6 399, 7600, 72587 #### [facility] of [address], [address] [place] [address] Final Inspection Supervisor: John Crooks MD Sodium [Moles/Vol] 139 mmol/L Normal 135-146 [facility] Comment on above: Performed By: #### 6 399, 7600, 99565 #### [facility] [address], [address] [place] [address] Final Inspection Supervisor: John Crooks MD Urea nitrogen [Mass/Vol] 16 mg/dL Normal 7-25 [facility] Comment on above: Performed By: #### 6 399, 7600, 13684 #### [facility] [address], [address] [place] [address] Final Inspection Supervisor: John Crooks MD LIPID PANEL, [facility] 0 Cholesterol [Mass/Vol] 219 mg/dL High <200 [facility] Comment on above: Order Comment: FASTI NG:YES FASTING: YES Performed By: #### 6 399, 7600, 02177 #### [facility] [address], [address] [place] [address] Final Inspection Supervisor: John Crooks MD Cholesterol in HDL [Mass/Vol] 67 mg/dL Normal > OR = 50 [facility] Comment on above: Order Comment: FASTI NG:YES FASTING: YES Performed By: #### 6 399, 7600, 95178 #### [facility] [place] [address] Final Inspection Supervisor: John Crooks MD Cholesterol in LDL [Mass/Vol] 132 mg/dL High [facility] Comment on above: Order Comment: FASTI NG:YES FASTING: YES Result Comment: Refe rence range: <100 Desirable range <100 mg/dL for primary prevention; <70 mg/dL for patients with CHD or diabetic patients with > or = 2 CHD risk factors. LDL-C is now calculated using the Elle calculation, which is a validated novel method providing better accuracy than the Friedewald equation in the estimation of LDL-C. Spenser OBYER et al. ARELY. 2013;310(19): 4394-8381 (http://education.medineering.[employer]/faq/GNE902) Performed By: #### 6 399, 7600, 61516 #### [facility] [address], [address] [place] [address] Final Inspection Supervisor: John Crooks MD Cholesterol.total/C holesterol in HDL [Mass ratio] 3.3 {ratio} Normal <5.0 [facility] Comment on above: Order Comment: FASTI NG:YES FASTING: YES Performed By: #### 6 399, 7600, 22492 #### [facility] [place] [address] Final Inspection Supervisor: John Crooks MD NON HDL CHOLESTEROL 152 mg/dL (calc) High <130 [facility] Comment on above: Order Comment: FASTI NG:YES FASTING: YES Result Comment: For patients with diabetes plus 1 major ASCVD risk factor, treating to a non-HDL-C goal of <100 mg/dL (LDL-C of <70 mg/dL) is considered a therapeutic option. Performed By: #### 6 399, 7600, 16754 #### [facility] [place] [address] Final Inspection Supervisor: John Crooks MD Triglyceride [Mass/Vol] 95 mg/dL Normal <150 [facility] Comment on above: Order Comment: FASTI NG:YES FASTING: YES Performed By: #### 6 399, 7600, 31001 #### [facility] [place] [address] Final Inspection Supervisor: John Crooks MD TSH W/REFLEX TO FT4on 2024 TSH W/REFLEX TO FT4 3.58 mIU/L Normal 0.40-4.50 [facility] Comment on above: Performed By: #### 6 399, 7600, 69417 #### [facility] [place] [address] Final Inspection Supervisor: John Crooks MD COVID + FLU Quick Testingon 07-09-2023 SARS-CoV-2 (COVID-19) RNA ALLEN+probe Ql (Unsp spec) Negative [employer] Other COVID + FLU Quick Testing Negative [employer] Other MG MAMM SCREEN 3D OWEN CADon 01-05-2022 MG MAMM SCREEN 3D OWEN CAD Patient: RIGOBERTO BARRIOS Exam Date: 01/05/2022 : 1950 Gender:F Ordering : DR NOAH BETHEA M.D. Admission #: [id number] Family : Order #: [id number] CLICK HERE TO VIEW EXAM RADIOLOGY REPORT PROCEDURE: MAMMOGRAM SCREENING 3D BILATERAL CAD COMPARISON: MG MAMM OWEN DIAG W CAD, 09/10/2020. MG MAMM DX 3D LT CAD, 03/26/2021. INDICATIONS: Screening mammography Calculator Name NCI Breast Cancer Risk Assessment Tool 5 Year Breast Cancer Risk 2.40% Lifetime Breast Cancer Risk 6.60% Personal Breast Cancer No Personal Ovarian Cancer No Treatments None Family Cancers Father with lung cancer at age 72. LOCATION: [facility] BREAST COMPOSITION: Scattered areas fibroglandular density. FINDINGS: DIAGNOSTIC CATEGORY 2--BENIGN FINDING. NO CHANGE FROM COMPARISON. Scattered benign-appearing calcifications are present. RIGHT BREAST: No significant suspicious finding. LEFT BREAST: No significant suspicious finding. Numerous calcified oil cysts, increased from the prior exam RECOMMENDATIONS: ROUTINE MAMMOGRAM AND CLINICAL EVALUATION IN 12 MONTHS. PLEASE NOTE: A NORMAL MAMMOGRAM DOES NOT EXCLUDE THE POSSIBILITY OF BREAST CANCER. A CLINICALLY SUSPICIOUS PALPABLE LUMP SHOULD BE BIOPSIED. Dictated by: Isaias Whalen MD on 01/05/2022 at 12:01 Approved by: Isaias Whalen MD on 01/05/2022 at 12:12 Normal [facility] XR DEXA BONE DENSITYon 01-05 XR DEXA BONE DENSITY EXAMINATION: XR DEXA BONE DENSITY, 01/05/2022 10:50 AM EDT HISTORY: Primary ovarian failure COMPARISON: 2018 TECHNIQUE: Dual-energy X-ray absorptiometry (DEXA) bone density study performed for the axial skeleton. FINDINGS: Bone mineral density AP spine L1-L4 measures 1.660 g/sq cm. T score 4.0. Likely artifactually elevated secondary to proliferative spondylosis. WHO classification: Normal Lowest bone mineral density is in the left femoral trochanter measuring 0.770 g/sq cm. T score -0.7. WHO classification: Normal IMPRESSION: Normal bone mineral density. Low fracture risk Electronically authenticated by: ISAIAS WHALEN Date: 2022-01-05 16:52 Normal [facility] MG MAMM DX 3D LT CADon 03-26 MG MAMM DX 3D LT CAD Patient: RIGOBERTO BARRIOS Exam Date: 03/26/2021 : 1950 Gender:F Ordering : DR. OLU GUZMAN . Admission #: [id number] Family : Order #: [id number] CLICK HERE TO VIEW EXAM RADIOLOGY REPORT PROCEDURE: MAMMOGRAM DIAGNOSTIC 3D LEFT CAD, 03/26/2021, 10:44 ULTRASOUND BREAST LEFT LIMITED, 03/26/2021, 11:08 COMPARISON: MG MAMM OWEN DIAG W CAD, 09/10/2020. INDICATIONS: Breast lump Calculator Name NCI Breast Cancer Risk Assessment Tool 5 Year Breast Cancer Risk 2.40% Lifetime Breast Cancer Risk 6.90% Personal Breast Cancer No Personal Ovarian Cancer No Treatments None Family Cancers Father with lung cancer at age 72. LOCATION: [facility] BREAST COMPOSITION: Scattered areas fibroglandular density. FINDINGS: DIAGNOSTIC CATEGORY 2--BENIGN FINDING: LEFT BREAST: Multiple oil cysts within the left breast secondary to prior trauma. Scattered benign-appearing punctate calcifications. Ultrasound evaluation demonstrates a few benign-appearing cysts. No suspicious findings. Annual screening mammography is recommended. RECOMMENDATIONS: ROUTINE MAMMOGRAM AND CLINICAL EVALUATION IN 12 MONTHS. PLEASE NOTE: A NORMAL MAMMOGRAM DOES NOT EXCLUDE THE POSSIBILITY OF BREAST CANCER. A CLINICALLY SUSPICIOUS PALPABLE LUMP SHOULD BE BIOPSIED. Dictated by: River Rushing M.D. on 03/26/2021 at 11:29 Approved by: River Rushing M.D. on 03/26/2021 at 11:[address] [facility] US BREAST LEFT LIMITEDon US BREAST LEFT LIMITED Patient: RIGOBERTO BARRIOS Exam Date: 03/26/2021 : 1950 Gender:F Ordering : DR. OLU GUZMAN . Admission #: [id number] Family : Order #: [id number] CLICK HERE TO VIEW EXAM RADIOLOGY REPORT PROCEDURE: MAMMOGRAM DIAGNOSTIC 3D LEFT CAD, 03/26/2021, 10:44 ULTRASOUND BREAST LEFT LIMITED, 03/26/2021, 11:08 COMPARISON: MG MAMM OWEN DIAG W CAD, 09/10/2020. INDICATIONS: Breast lump Calculator Name NCI Breast Cancer Risk Assessment Tool 5 Year Breast Cancer Risk 2.40% Lifetime Breast Cancer Risk 6.90% Personal Breast Cancer No Personal Ovarian Cancer No Treatments None Family Cancers Father with lung cancer at age 72. LOCATION: [facility] BREAST COMPOSITION: Scattered areas fibroglandular density. FINDINGS: DIAGNOSTIC CATEGORY 2--BENIGN FINDING: LEFT BREAST: Multiple oil cysts within the left breast secondary to prior trauma. Scattered benign-appearing punctate calcifications. Ultrasound evaluation demonstrates a few benign-appearing cysts. No suspicious findings. Annual screening mammography is recommended. RECOMMENDATIONS: ROUTINE MAMMOGRAM AND CLINICAL EVALUATION IN 12 MONTHS. PLEASE NOTE: A NORMAL MAMMOGRAM DOES NOT EXCLUDE THE POSSIBILITY OF BREAST CANCER. A CLINICALLY SUSPICIOUS PALPABLE LUMP SHOULD BE BIOPSIED. Dictated by: River Rushing M.D. on 03/26/2021 at 11:29 Approved by: River Rushing M.D. on 03/26/2021 at 11:[address] [facility] CBC AUTO DIFFon 03-23-2021 BASO # 0.1 103/ul Normal 0.0-0.1 [facility] Comment on above: Performed By: #### C BC #### [facility] [address] [place] [id number] Yazmin Jessa Basophils/100 WBC (Bld) 0.7 % Normal 0.2-2.0 [facility] Comment on above: Performed By: #### C BC #### [facility] [address] [place], [place] [id number] Yazmin Jessa EO # 0.2 103/ul Normal 0.0-0.[address] [facility] Comment on above: Performed By: #### C BC #### [facility] [address] [place] [id number] Yazmin Jessa Eosinophils/100 WBC (Bld) 3.3 % Normal 0.9-7.0 [facility] Comment on above: Performed By: #### C BC #### [facility] [address] [place] [id number] Yazmin Jessa Erythrocyte distribution width (RBC) [Ratio] 13.2 % Normal 11.0-15.0 [facility] Comment on above: Performed By: #### C BC #### [facility] [address] [place] [id number] Yazmin Germain Hematocrit (Bld) [Volume fraction] 40.8 % Normal 36.0-48.0 [facility] Comment on above: Performed By: #### C BC #### [facility] [address] [place] [address] Yazmin Germain Hemoglobin (Bld) [Mass/Vol] 13.4 g/dL Normal 12.0-16.[address] [facility] Comment on above: Performed By: #### C BC #### [facility] [address] [place] [address] Yazminvera Germain IG # 0.01 10e3/ul Normal 0.00-0.03 [facility] Comment on above: Performed By: #### C BC #### [facility] [address] [place] [address] Yazmin Germain IG % 0.1 % Normal 0.0-0.5 [facility] Comment on above: Performed By: #### C BC #### [facility] [address] [place] [address] Yazmin Germain LYMPH # 2.0 103/ul Normal 1.2-3.[address] [facility] Comment on above: Performed By: #### C BC #### [facility] [address] [place] [address] Yazmin Germain Lymphocytes/100 WBC (Bld) 30.2 % Normal 20.5-60.[address] [facility] Comment on above: Performed By: #### C BC #### [facility] [address] [place] [address] Yazmin Germain MANUAL DIFF REQ NO Normal [facility] Comment on above: Performed By: #### C BC #### [facility] [address] [place], [place] [id number] Yazmin Germain MCH (RBC) [Entitic mass] 30.5 pg Normal 26.7-34.0 [facility] Comment on above: Performed By: #### C BC #### [facility] [address] [place] [address] Yazmin Germain MCHC (RBC) [Mass/Vol] 32.8 g/dL Normal 29.9-35.2 [facility] Comment on above: Performed By: #### C BC #### [facility] [address] [place], [place] [id number] Yazmin Germain MCV (RBC) [Entitic vol] 92.9 fL Normal 81.0-99.0 [facility] Comment on above: Performed By: #### C BC #### [facility] [address] [place] [id number] Yazmin Germain MONO # 0.7 103/ul Normal 0.3-0.8 [facility] Comment on above: Performed By: #### C BC #### [facility] [address] [place], [place] [id number] Yazmin Germain Monocytes/100 WBC (Bld) 10.1 % Normal 1.7-12.0 [facility] Comment on above: Performed By: #### C BC #### [facility] [address] [place] [address] Yazmin Germain NEUT # 3.8 103/ul Normal 1.4-6.5 [facility] Comment on above: Performed By: #### C BC #### [facility] [address] [place], [place] [id number] Yazmin Germain Neutrophils/100 WBC (Bld) 55.6 % Normal 43.0-75.0 [facility] Comment on above: Performed By: #### C BC #### [facility] [address] [place], [place] [id number] Yazmin Germain Platelet mean volume (Bld) [Entitic vol] 9.7 fL Normal 9.5-13.[address] [facility] Comment on above: Performed By: #### C BC #### [facility] [address] [place], [place] [address] Yazmin Jessa PLT 292 103/ul Normal 150-[address] [facility] Comment on above: Performed By: #### C BC #### [facility] [address] [place] [address] Yazmin Jessa RBC 4.39 106/ul Normal 4.20-5.[address] [facility] Comment on above: Performed By: #### C BC #### [facility] [address] [place], [place] [address] Yazmin Jessa WBC 6.8 103/ul Normal 4.0-11.0 [facility] Comment on above: Performed By: #### C BC #### [facility] [address] [place], [place] [address] Yazmin Jessa PROF 14(COMP METB)on 021 Albumin [Mass/Vol] 3.9 g/dL Normal 3.5-5.0 [facility] Comment on above: Performed By: #### T MARY ANN, CMP #### [facility] [address] [place], [place] [address] Yazmin Jessa Albumin/Globulin [Mass ratio] 1.0 {ratio} Normal [facility] Comment on above: Performed By: #### T MARY ANN, CMP #### [facility] [address] [place] [address] Yazmin Jessa ALP [Catalytic activity/Vol] 97 U/L Normal 38-126 [facility] Comment on above: Performed By: #### T MARY ANN, CMP #### [facility] [address] [place], [place] [address] Yazmin Jessa ALT [Catalytic activity/Vol] 25 U/L Normal 9-52 [facility] Comment on above: Performed By: #### T MARY ANN, CMP #### [facility] [address] [place], [place] [address] Yazmin Jessa Anion gap [Moles/Vol] 12.3 mmol/L Normal [facility] Comment on above: Performed By: #### T MARY ANN, CMP #### [facility] [address] [place], [place] [address] Yazmin Jessa AST [Catalytic activity/Vol] 21 U/L Normal 14-36 [facility] Comment on above: Performed By: #### T MARY ANN, CMP #### [facility] [address] [place] [address] Yazmin Jessa Bilirubin [Mass/Vol] 1.2 mg/dL Normal 0.2-1.3 [facility] Comment on above: Performed By: #### T MARY ANN, CMP #### [facility] [address] [place] [address] Yazmin Jessa Calcium [Mass/Vol] 9.2 mg/dL Normal 8.4-10.2 [facility] Comment on above: Performed By: #### T SH, CMP #### [facility] [address] [place] [address] Yazmin Jessa Chloride [Moles/Vol] 105 mmol/L Normal 98-[address] [facility] Comment on above: Performed By: #### T SH, CMP #### [facility] [address] [place] [address] Yazmin Jessa CO2 [Moles/Vol] 27.5 mmol/L Normal 22.0-30.0 [facility] Comment on above: Performed By: #### T SH, CMP #### [facility] [address] [place] [address] Yazmin Jessa Creatinine [Mass/Vol] 0.81 mg/dL Normal 0.52-1.[address] [facility] Comment on above: Performed By: #### T MARY ANN, CMP #### [facility] [address] [place] [address] Yazmin Jessa EGFR-AF [place] >60 Normal >=60 [facility] Comment on above: Performed By: #### T MARY ANN, CMP #### [facility] [address] [place] [address] Yazmin Jessa EGFR-NON AF [place] >60 Normal >=[address] [facility] Comment on above: Performed By: #### T MARY ANN, CMP #### [facility] [address] [place] [address] Yazmin Jessa Globulin (S) [Mass/Vol] 3.8 g/dL Normal [facility] Comment on above: Performed By: #### T SH, CMP #### [facility] [address] [place] [address] Yazmin Jessa Glucose [Mass/Vol] 98 mg/dL Normal 74-106 [facility] Comment on above: Performed By: #### T MARY ANN, CMP #### [facility] [address] [place] [address] Yazmin Jessa Potassium [Moles/Vol] 4.8 mmol/L Normal 3.4-5.0 [facility] Comment on above: Performed By: #### T MARY ANN, CMP #### [facility] [address] [place], [place] [address] Yazmin Jessa Protein [Mass/Vol] 7.7 g/dL Normal 6.1-8.2 [facility] Comment on above: Performed By: #### T MARY ANN, CMP #### [facility] [address] [place] [address] Yazmin Jessa Sodium [Moles/Vol] 140 mmol/L Normal 137-145 [facility] Comment on above: Performed By: #### T MARY ANN, CMP #### [facility] [address] [place] [address] Yazmin Jessa Urea nitrogen [Mass/Vol] 14.0 mg/dL Normal 7.0-17.0 [facility] Comment on above: Performed By: #### T MARY ANN, CMP #### [facility] [address] [place] [address] Yazmin Jessa Urea nitrogen/Creatinine [Mass ratio] 17.3 mg/mg Normal [facility] Comment on above: Performed By: #### T MARY ANN, CMP #### [facility] [address] [place], [place] [address] Yazmin Jessa TSHon 03-23-2021 TSH 1.995 uIU/mL Normal 0.470-4.680 [facility] Comment on above: Performed By: #### T MARY ANN, CMP #### [facility] [address] [place], [place] [address] Yazmin Jessa TSH RANGE SEE BELOW Normal [facility] Comment on above: Result Comment: <0.3 4 UIU/ml HYPERTHYROID 0.34-5.60 UIU/ml EUTHYROID >5.60 UIU/ml HYPOTHYROID Performed By: #### T MARY ANN, CMP #### [facility] [address] [place], [place] [address] Yazmin Jessa Vital Signs Date Time Vital Sign Value Performing Clinician Facility 02-13-2025 09:08-0400 Body height 170.2 cm Po KHANM Work Phone: [facility] 02-13-2025 09:08-0400 Body mass index (BMI) [Ratio] 36.49 kg/m2 Po Cha DPM Work Phone: [facility] 02-13-2025 09:08-0400 Body weight 105.69 kg Po Cha DPM Work Phone: [facility] 02-13-2025 09:08-0400 Respiratory rate 16 /min Po Cha DPM Work Phone: [facility] 01-16-2025 10:19-0400 Body height 170.2 cm Po Cha DPM Work Phone: [facility] 01-16-2025 10:19-0400 Body mass index (BMI) [Ratio] 36.49 kg/m2 Po Cha DPM Work Phone: [facility] 01-16-2025 10:19-0400 Body weight 105.69 kg Po Cha DPM Work Phone: [facility] 01-16-2025 10:19-0400 Respiratory rate 18 /min Po Cha DPM Work Phone: [facility] 09-11-2024 08:52-0500 Body height 170.2 cm Noah Bethea MD Work Phone: [facility] 09-11-2024 08:52-0500 Body mass index (BMI) [Ratio] 36.49 kg/m2 Noah Bethea MD Work Phone: [facility] 09-11-2024 08:52-0500 Body weight 105.69 kg Noah Bethea MD Work Phone: [facility] 09-11-2024 08:52-0500 Diastolic blood pressure 72 mm[Hg] Noah Bethea MD Work Phone: [facility] 09-11-2024 08:52-0500 Heart rate 70 /min Noah Bethea MD Work Phone: [facility] 09-11-2024 08:52-0500 SaO2% (BldA) [Mass fraction] 97 % Noah Bethea MD Work Phone: [facility] 09-11-2024 08:52-0500 Systolic blood pressure 130 mm[Hg] Noah Bethea MD Work Phone: [facility] 06-11-2024 09:56-0500 Body height 170.2 cm Grace Bean BANK CLERK Work Phone: [facility] 06-11-2024 09:56-0500 Body mass index (BMI) [Ratio] 36.02 kg/m2 Grace [place] BANK CLERK Work Phone: [facility] 06-11-2024 09:56-0500 Body temperature 97.5 [degF] Grace Bean BANK CLERK Work Phone: [facility] 06-11-2024 09:56-0500 Body weight 104.33 kg Grace Kelleyvely BANK CLERK Work Phone: [facility] 06-11-2024 09:56-0500 Diastolic blood pressure 66 mm[Hg] Grace [place] BANK CLERK Work Phone: [facility] 06-11-2024 09:56-0500 Heart rate 81 /min Grace Bean BANK CLERK Work Phone: [facility] 06-11-2024 09:56-0500 SaO2% (BldA) [Mass fraction] 99 % Grace Bean BANK CLERK Work Phone: [facility] 06-11-2024 09:56-0500 Systolic blood pressure 124 mm[Hg] Grace Bean BANK CLERK Work Phone: [facility] 03-06-2024 08:50-0400 Body height 170.2 cm Noah Bethea MD Work Phone: [facility] 03-06-2024 08:50-0400 Body mass index (BMI) [Ratio] 35.08 kg/m2 Noah Bethea MD Work Phone: [facility] 03-06-2024 08:50-0400 Body weight 101.61 kg Noah Bethea MD Work Phone: [facility] 03-06-2024 08:50-0400 Diastolic blood pressure 82 mm[Hg] Noah Bethea MD Work Phone: [facility] 03-06-2024 08:50-0400 Heart rate 71 /min Noah Bethea MD Work Phone: [facility] 03-06-2024 08:50-0400 SaO2% (BldA) [Mass fraction] 96 % Noah Bethea MD Work Phone: [facility] 03-06-2024 08:50-0400 Systolic blood pressure 136 mm[Hg] Noah Bethea MD Work Phone: [facility] 07-09-2023 13:00-0500 Body height 170.18 cm Cassandra De La Rosa Other [employer] Other 07-09-2023 13:00-0500 Body mass index (BMI) [Ratio] 29.75 kg/m2 Cassandra De La Rosa Other [employer] Other 07-09-2023 13:00-0500 Body temperature 98 [degF] Cassandra De La Rosa Other [employer] Other 07-09-2023 13:00-0500 Body weight 86.18 kg Cassandra De La Rosa Other [employer] Other 07-09-2023 13:00-0500 Respiratory rate 18 /min Cassandra De La Rosa Other [employer] Other 07-09-2023 13:00-0500 SaO2% (BldA) [Mass fraction] 99 % Cassandra De La Rosa Other [employer] Other 06-04-2021 10:20-0500 Body height 170.18 cm Gerri Sanchez Other [employer] Other 06-04-2021 10:20-0500 Body mass index (BMI) [Ratio] 35.39 kg/m2 Gerri Sanchez Other [employer] Other 06-04-2021 10:20-0500 Body temperature 97.9 [degF] Gerri Sanchez Other [employer] Other 06-04-2021 10:20-0500 Body weight 102.51 kg Gerri Sanchez Other [employer] Other 06-04-2021 10:20-0500 Diastolic blood pressure 80 mm[Hg] Gerri Sanchez Other [employer] Other 06-04-2021 10:20-0500 Respiratory rate 16 /min Gerri Sanchez Other [employer] Other 06-04-2021 10:20-0500 SaO2% (BldA) [Mass fraction] 97 % Gerri Sanchez Other [employer] Other 06-04-2021 10:20-0500 Systolic blood pressure 120 mm[Hg] Gerri Sanchez Other [employer] Other Encounters Encounter Date Encounter Type Care Provider Facility Start: 02-25-2025 End: 02-25-2025 Clinisync Result Encounter Generic External Data Provider [facility] Unsolicited Start: 02-25-2025 End: 02-25-2025 Clinisync Result Encounter Generic External Data Provider [facility] External [facility] Unsolicited Start: 02-13-2025 End: 02-13-2025 Bamlluviao flowsfarheen Cha DPM Work Phone: [facility] Start: 02-13-2025 End: 02-13-2025 Bamboo flowsheet Po Nathalie Semaj DPM Work Phone: [facility] Start: 02-13-2025 End: 02-13-2025 Office outpatient visit 15 minutes Po Zelaya Semaj DPM Work Phone: [facility] Comment on above: Capsulitis of metata rsophalangeal (MTP) joint of left foot (Primary Dx); Metatarsal deformity, left; Contracture of left ankle Start: 02-13-2025 End: 02-13-2025 ambulatory PO CHA Not Available Start: 01-16-2025 End: 01-16-2025 Bamboo flowsheet Po Cha DPM Work Phone: [facility] Start: 01-16-2025 End: 01-16-2025 Bamboo flowsheet Poedilberto Cha DPM Work Phone: [facility] Start: 01-16-2025 End: 01-16-2025 Office outpatient new 30 minutes Po Zelaya Semaj DPM Work Phone: [facility] Comment on above: Hav (hallux abducto valgus), left (Primary Dx); Contracture of left ankle; Metatarsal deformity, left; Capsulitis of metatarsophalangeal (MTP) joint of left foot Start: 01-16-2025 End: 01-16-2025 ambulatory PO CHA Not Available Start: 09-11-2024 End: 09-11-2024 Bamboo flowsheet Noah Bethea MD Work Phone: [facility] Start: 09-11-2024 End: 09-11-2024 Bamboo flowsheet Noah Bethea MD Work Phone: [facility] Start: 09-11-2024 End: 09-11-2024 Assay of hemosiderin, quant Noah Bethea MD Work Phone: [facility] Work Phone: Start: 09-11-2024 End: 09-11-2024 Patient encounter procedure Noah Bethea MD Work Phone: [facility] Comment on above: Routine general medi melanie examination at health care facility (Primary Dx); ACP (advance care planning); Essential (primary) hypertension (CMS/HCC); Primary osteoarthritis involving multiple joints; Acquired hypothyroidism (CMS/HCC); Class 2 obesity without serious comorbidity with body mass index (BMI) of 36.0 to 36.9 in adult, unspecified obesity type Start: 09-11-2024 End: 09-11-2024 ambulatory NOAH BETHEA Not Available Start: 06-11-2024 End: 06-11-2024 Bamboo flowsheet Grace Bean BANK CLERK Work Phone: [facility] Start: 06-11-2024 End: 06-11-2024 Bamboo flowsheet Grace Bean BANK CLERK Work Phone: [facility] Start: 06-11-2024 End: 06-11-2024 Office outpatient visit 25 minutes Grace Bean BANK CLERK Work Phone: [facility] Comment on above: Acute non-recurrent pansinusitis (Primary Dx) Start: 06-11-2024 End: 06-11-2024 ambulatory GRACE BEAN Not Available Start: 06-10-2024 End: 06-11-2024 Telephone encounter Noah Bethea MD Work Phone: [facility] Start: 03-06-2024 End: 03-06-2024 Bamboo flowsheet Noah Bethea MD Work Phone: [facility] Start: 03-06-2024 End: 03-06-2024 Bamboo flowsheet Noah Bethea MD Work Phone: [facility] Start: 03-06-2024 End: 03-06-2024 Office outpatient visit 15 minutes Noah Bethea MD Work Phone: [facility] Comment on above: Essential (primary) hypertension (CMS/HCC) (Primary Dx); Acquired hypothyroidism (CMS/HCC); Breast screening Start: 03-06-2024 End: 03-06-2024 ambulatory NOAH BETHEA Not Available Start: 07-09-2023 End: 07-09-2023 ambulatory Cassandra De La Rosa Other [employer] Other Start: 07-09-2023 Office outpatient vi sit 25 minutes Csasandra De La Rosa [facility] [place] Start: 01-05-2022 End: 01-06-[address] NOAH BETHEA Facility:[facility] Start: 06-04-2021 End: 06-04-2021 ambulatory Gerri Sanchez Other [employer] Other Start: 06-04-2021 Office outpatient ne w 20 minutes Gerri Sanchez [facility] [place] Start: 03-26-2021 End: 03-27-2021 ambulatory OLU GUZMAN Facility:[facility] Start: 03-23-2021 End: 03-24-2021 ambulatory OLU GUZMAN Facility:[facility] Procedures Date Procedure Procedure Detail Performing Clinician Start: 02-25-2025 End: 02-25-2025 Radiologic examination pelvis 1/2 views Generic External Data Provider Start: 01-16-2025 Radex foot complete minimum 3 views Po Cha DPM Work Phone: Start: 03-26-2024 Mammography Noah newby MD Work Phone: Start: 03-15-2023 Mammography Noah newby MD Work Phone: Start: 09-26-2018 Colonoscopy Noah newby MD Work Phone: Plan of Treatment Date Care Activity Detail Author Start: 09-26-2028 Screening for malignant neoplasm of colon [facility] Start: 09-11-2025 Medicare Annual Wellness (AWV) Medicare Annual Wellness (AWV) [facility] Start: 03-26-2025 Screening for malignant neoplasm of breast Mammogram [facility] Start: 03-19-2025 End: 03-19-2025 Patient encounter procedure [facility] Start: 03-10-2025 Influenza vaccination Influenza Vaccine (#1) [facility] Start: 02-13-2025 End: 02-13-2025 Clinical Support 02/13/2025 9:20 AM EDT Clinical Support [facility] [address] [facility] [address] [place] [address] Po Cha, NARCISO [address] [address] Capsulitis of metatarsophalangeal (MTP) joint of left foot (Primary Dx); Metatarsal deformity, left; Contracture of left ankle [facility] Comment on above: Capsulitis of metatarsophalangeal (MTP) joint of left foot (Primary Dx); Metatarsal deformity, left; Contracture of left ankle Start: 01-16-2025 End: 01-16-2025 Patient encounter procedure 01/16/2025 10:20 AM EDT Office Visit [facility] [address] [facility] [address] [place] [id number] Po Cha DPM [address] [address] [facility] Start: 11-06-2024 Influenza vaccination Influenza Vaccine (#1) [facility] Comment on above: Postponed from 03/10/2024 (Patient Refus ed) Start: 10-31-2024 Medicare Annual Wellness (AWV) Medicare Annual Wellness (AWV) [facility] Start: 09-11-2024 End: 09-11-2025 Comprehensive metabolic 2000 panel - Serum or Plasma Comprehensive metabolic panel Lab Routine Routine general medical examination at health care facility Essential (primary) hypertension (CMS/HCC) Expected: 09/11/2024 (Approximate), Expires: 09/11/2025 [facility] Comment on above: Expected: 09/11/2024 (Approximate), Expi res: 09/11/2025 Start: 09-11-2024 End: 09-11-2025 Lipid 1996 panel - Serum or Plasma Lipid panel Lab Routine Routine general medical examination at health care facility Essential (primary) hypertension (CMS/HCC) Acquired hypothyroidism (CMS/HCC) Class 2 obesity without serious comorbidity with body mass index (BMI) of 36.0 to 36.9 in adult, unspecified obesity type Expected: 09/11/2024 (Approximate), Expires: 09/11/2025 [facility] Work Phone: Comment on above: Expected: 09/11/2024 (Approximate), Expi res: 09/11/2025 Start: 09-11-2024 End: 09-11-2025 TSH W/REFLEX TO FT4 TSH W/REFLEX TO FT4 Lab Routine Routine general medical examination at [facility] Acquired hypothyroidism (CMS/HCC) Expected: 09/11/2024 (Approximate), Expires: 09/11/2025 [facility] Comment on above: Expected: 09/11/2024 (Approximate), Expi res: 09/11/2025 Start: 09-11-2024 End: 09-11-2024 Patient encounter procedure [facility] Comment on above: Arrived Start: 06-11-2024 End: 06-11-2024 Patient encounter procedure [facility] Comment on above: Arrived Start: 03-15-2024 Screening for malignant neoplasm of breast Mammogram [facility] Start: 03-10-2024 Influenza vaccination Influenza Vaccine (#1) [facility] Start: 03-06-2024 End: 05-06-2025 MG Breast - bilateral Screening Bilateral screening mammogram Imaging Routine Breast screening Expected: 03/06/2024, Expires: 05/06/2025 [facility] Work Phone: Comment on above: Expected: 03/06/2024, Expires: Start: 03-06-2024 End: 03-06-2024 Patient encounter procedure 03/06/2024 9:00 AM EDT Office Visit [facility] [address] [facility] [address] [place] [id number] Noah Bethea MD [address] [facility] [address] [place] [address] Arrived [facility] Comment on above: Arrived Start: 2015 Pneumococcal Vaccine: 65+ Years (1 of 1 - PCV) Pneumococcal Vaccine: 65+ Years (1 of 1 - PCV) [facility] Start: 1950 Screening for malignant neoplasm of colon [facility] CBC W Auto Different ial panel - Blood CBC and differential Lab Routine Routine general medical examination at health care facility Essential (primary) hypertension (CMS/HCC) Primary osteoarthritis involving multiple joints Ordered: 09/11/2024 [facility] Comment on above: Ordered: 09/11/2024 Immunizations Immunization Date Immunization Notes Care Provider Yudelka kothari 11-07-2023 Pneumococcal Conjuga te PCV 20 Grace Bean NP Work Phone: [facility] 05-01-2020 Influenza, High-dose Seasonal, Quadrivalent, Preservative Free Noah Bethea MD Work Phone: [facility] 05-01-2020 influenza virus vacc ine, unspecified formulation Noah Bethea MD Work Phone: [facility] Payers Date Payer Category Payer Medicare [employer] MED[employer] ADVANTAGE [facility] MEDICARE [id number] 2017-Present [id number] [place] [id number] 2017 Medicare (Managed Care) [employer] EDICARE ADVANTAGE [id number] 1959 Medicare [id number] 1950 Unknown [id number] 1950 Unknown [id number] 1950 Unknown [id number] [id number] 1950 Unknown [id number] [id number] 1950 Unknown [id number] [id number] 1950 Unknown [id number] [id number] 1950 Unknown [id number] [id number] 1950 Unknown [id number] [id number] 1950 Unknown [id number] [id number] Medicare [id number] Social History Date Type Detail Facility Start: 03-06-2024 End: 09-11-2024 Sex Assigned At [facility] Work Phone: Start: 03-03-2023 End: 01-16-2025 Tobacco smoking status [facility] Ex-smoker [facility] End: 10-16-1991 History of tobacco use Current smoker [facility] End: 10-16-1991 History of tobacco use Cigarette Smoker [facility] Start: 03-03-2023 End: 01-16-2025 Tobacco use and exposure Smokeless tobacco non-user [facility] Start: 03-06-2024 End: 02-13-2025 Alcoholic beverage intake Lifetime non-drinker (finding) [facility] Start: 03-06-2024 End: 09-11-2024 History of Social function [facility] Work Phone: Start: 03-03-2023 Alcohol Comment Caffeine 1-2 c ups per day [facility] Start: 1950 Sex assigned at Not on file N [facility] Clinical Notes 06-04-2021 to 02-13-2025 Po Cha DPM - 02/13/2025 9:20 AM Luis Cha DPM - 01/16/2025 10:20 AM Kofi Bethea MD - 09/11/2024 9:00 AM Geraldine Bean NP - 06/11/2024 10:00 AM EST Note Date & Type Note Facility 02-13-2025 History of Presen t illness Narrative Patient: Rigoberto Barrios : 1950 PCP: Noah Bethea MD SUBJECTIVE [...] Past Medical History: Diagnosis Date Alopecia Anxiety Renan's thyroiditis Hypertension Kidney stones Obesity Plantar fasciitis Varicose vein of leg Medications: Current Outpatient Medications: amLODIPine (Norvasc) 5 MG tablet, Take 1 tablet (5 mg) by mouth Daily, Disp: 90 tablet, Rfl: 5 atenolol (Tenormin) 25 MG tablet, TAKE 1 TABLET BY MOUTH EVERY DAY, Disp: 90 tablet, Rfl: 4 cholecalciferol (Vitamin D-3) 50 MCG (2000 UT) capsule, Take 1 capsule by mouth [...] future and postoperative timeframe and would like Effie for postoperative pain Patient continue with wider shoes Po Cha DPM documented in this encounter [facility] 01-16-2025 History of Presen t illness Narrative Patient: Rigoberto Barrios : 1950 PCP: Noah Bethea MD SUBJECTIVE This is a 74 y.o. female that presents today for a chief complaint of pain to lateral aspect of the left foot for the past few months and states pain up to a 7/10. She has tried different types of shoes with some improvement and also states that she has use wider shoes as well with some improvement.. Allergies: No Known Allergies Past Medical History: Past Medical History: Diagnosis Date Alopecia Anxiety Renan's thyroiditis Hypertension Kidney stones Obesity Plantar fasciitis [...] Types: Cigarettes Quit date: 10/16/1991 Years since quittin.2 Smokeless tobacco: Never Substance and Sexual Activity [...] Ankle ROM less than 10 degrees b/l. Positive pain on palpation to left 5th MPJ capsule Lateral deviation of left 5th metatarsal head HAV deformity left that is reducible XRAY: XR foot 3+ views left Imaging Result: Notable left great toe hallux rigidus and degenerative changes to the 1st MPJ with notable tailor's bunion and 5th digital deformity and metatarsus adductus US: DIAGNOSTIC ULTRASOUND REPORT: Verbal order for ultrasound today The 5th MPJ capsule of the left foot was examined with a 12 MHz linear probe in the transverse and sagital planes on the capsular regions of the MPJ. Images obtained. FINDINGS: Ultrasound exam demonstrates capsulitis/inflammation and a hypoechoic signal at plantar capsule on a series of sagittal and transverse images. The plantar plate examined as well with plantar joint capsule intact. IMPRESSION: Ultrasound findings indicated capsulitis of the left 5th MPJ. ASSESSMENT 1. Hav (hallux abducto valgus), left 2. Contracture of left ankle 3. Metatarsal deformity, left 4. Capsulitis of metatarsophalangeal (MTP) joint of left foot PLAN Reviewed xrays today with patient as well as ultrasound Discussed conservative and surgical treatment options for patient today including postoperative time frame and surgical procedure in detail. Patient may continue with conservative treatments including [id number] anti-inflammatories and other treatments suggested today. Patient may want to be scheduled for surgical intervention in the near future. Discussed possible left Emndy osteotomy with tailor's bunionectomy if no relief in the future and postoperative timeframe and would like Effie for postoperative pain Pt was given steroid injection to the medial and lateral capsular ligaments of the left 5thMPJ under US guidance with visualization of injected fluid into area of concern per imaging. Injection consisted of a 2:1 mixture of xylocaine 2%plain and kenalog 10 for a total of 3ccs. Informed pt of risks and benefits of procedure including infection,damage or rupture to soft tissue structures and steroid flare. Pt understood and consented. This is the patients 1st injection Po Cha DPM documented in this encounter [facility] 09-11-2024 History of Presen t illness Narrative Images from the original note were not included. Subjective : Chief Complaint: Rigoberto Barrios is an 74 y.o. female here for an annual wellness visit. I have reviewed and reconciled the history and medication list with the patient today. Current Outpatient Medications Medication Sig Dispense Refill amLODIPine (Norvasc) 5 MG tablet Take 1 tablet (5 mg) by mouth Daily 90 tablet 5 atenolol (Tenormin) 25 MG tablet TAKE 1 TABLET BY MOUTH EVERY DAY FOR 100 DAYS 100 tablet 3 cholecalciferol (Vitamin D-3) 50 MCG (2000 UT) capsule Take 1 capsule by mouth in the morning. levothyroxine (Synthroid, Levoxyl) 100 MCG tablet TAKE 1 TABLET BY MOUTH ONCE EVERY MORNING ON AN EMPTY STOMACH 90 tablet 4 magnesium oxide (Mag-Ox) 400 MG tablet Take 400 mg by mouth in the morning. Multiple Vitamins-Minerals (OCUVITE ADULT 50+ PO) Daily. No current facility-administered medications for this visit. Review of Systems List of current healthcare providers: Patient Care Team: Noah Bethea MD as PCP - General (Internal Medicine) Noah Bethea MD as PCP - [employer] Annual Visit Over the past 2 weeks, how often have you been bothered by any of the following problems? Little interest or pleasure in doing things: Not at all Feeling down, depressed, or hopeless: Not at all Patient Health Questionnaire-2 Score: 0 Osorio Fall Risk History of Falling, Immediate or Within 3 Months: No Secondary Diagnosis: No Ambulatory Aid: Walks without aid/bedrest/nurse assist Health Risk Assessment Form Do you need help eating, bathing, using the toilet, dressing, or getting around your home?: No Can you prepare your own meals?: Yes Can you do your own housework without help?: Yes Can you shop for groceries or clothes without help?: Yes Do you exercise for about 20 minutes 3 or more days a week?: No How confident are you that you can control and manage most of your health problems?: Very confident Can you mange your money, credit cards and accounts, pay bills and taxes?: Yes Cognitive Screening Three Word Registration: Apple, Watch, Zoila Clock Drawing: Normal Clock - 2 Three Word Recall: All 3 words correct - 3 Total Score (0-5 Points): 5 Pain Assessment Pain Score: 2 Advance Care Planning Do you have a living will?: No Do you have a medical power of consumer attorney?: No Objective : BP 130/72 Pulse 70 Ht 5' 7 Wt 233 lb SpO2 97% BMI 36.49 kg/m No results found. Physical Exam Constitutional: General: She is not in acute distress. Appearance: Normal appearance. She is well-developed. HENT: Head: Normocephalic and atraumatic. Eyes: General: No scleral icterus. Conjunctiva/sclera: Conjunctivae normal. Cardiovascular: Rate and Rhythm: Normal rate and regular rhythm. Heart sounds: Normal heart sounds. No murmur heard. Pulmonary: Effort: Pulmonary effort is normal. No respiratory distress. Breath sounds: Normal breath sounds. No wheezing, rhonchi or rales. Skin: General: Skin is warm and dry. Neurological: General: No focal deficit present. Mental Status: She is alert and oriented to person, place, and time. Psychiatric: Mood and Affect: Mood normal. Behavior: Behavior normal. Assessment/Plan : The following health maintenance schedule was reviewed with the patient and provided in printed form in the after visit summary: Health Maintenance Topic Date Due Influenza Vaccine (1) 11/06/2024 (Originally 03/10/2024) Medicare Annual Wellness (AWV) 10/31/2024 Mammogram 03/26/2025 Colorectal Cancer Screening 09/26/2028 Pneumococcal Vaccine: 65+ Years Completed Advance Care Planning Assessment/Plan Diagnoses and all orders for this visit: Routine general medical examination at health care facility - Lipid panel; Future - Comprehensive metabolic panel; Future - CBC and differential - TSH W/REFLEX TO FT4; Future ACP (advance care planning) Essential (primary) hypertension (CMS/HCC) - Lipid panel; Future - Comprehensive metabolic panel; Future - CBC and differential Primary osteoarthritis involving multiple joints - CBC and differential Acquired hypothyroidism (CMS/HCC) - Lipid panel; Future - TSH W/REFLEX TO FT4; Future Class 2 obesity without serious comorbidity with body mass index (BMI) of 36.0 to 36.9 in adult, unspecified obesity type - Lipid panel; Future No orders of the defined types were placed in this encounter. Electronically signed by Noah Bethea MD on September 11, 2024 documented in this encounter [facility] 06-11-2024 History of Presen t illness Narrative Images from the original note were not included. Subjective Patient ID: Rigoberto Barrios is a 74 y.o. female who presents for Sinusitis. Sinus Pain Patient complains of congestion, headaches, nasal congestion, post nasal drip, sinus pressure, and sore throat. Onset of symptoms was 1 week ago. Symptoms have been gradually worsening since that time. Patient is non-smoker. Sinusitis This is a new problem. The current episode started 1 to 4 weeks ago. The problem has been rapidly worsening since onset. There has been no fever. Her pain is at a severity of 8/10. The pain is severe. Associated symptoms include congestion, ear pain, headaches and sinus pressure. Treatments tried: Advil. The treatment provided no relief. Current Outpatient Medications on File Prior to Visit Medication Sig Dispense Refill amLODIPine (Norvasc) 5 MG tablet Take 1 tablet (5 mg) by mouth Daily 90 tablet 5 atenolol (Tenormin) 25 MG tablet TAKE 1 TABLET BY MOUTH EVERY DAY FOR 100 DAYS 100 tablet 3 cholecalciferol (Vitamin D-3) 50 MCG (1999 UT) capsule Take 1 capsule by mouth in the morning. levothyroxine (Synthroid, Levoxyl) 100 MCG tablet TAKE 1 TABLET BY MOUTH ONCE EVERY MORNING ON AN EMPTY STOMACH 90 tablet 4 magnesium oxide (Mag-Ox) 400 MG tablet Take 400 mg by mouth in the morning. Multiple Vitamins-Minerals (OCUVITE ADULT 50+ PO) Daily. No current facility-administered medications on file prior to visit. I have reviewed and reconciled the history and medication list with the patient today. No Known Allergies Social History Tobacco Use Smoking status: Former Current packs/day: 0.00 Types: Cigarettes Quit date: 10/16/1991 Years since quittin.6 Smokeless tobacco: Never Substance Use Topics Alcohol use: Never Comment: Caffeine 1-2 cups per day Drug use: Never Family History Problem Relation Name Age of Onset Hypertension Mother Cancer Father Past Medical History: Diagnosis Date Alopecia Anxiety Renan's thyroiditis (CMS/HCC) Hypertension (CMS/HCC) Kidney stones Obesity Plantar fasciitis Varicose vein of leg Past Surgical History: Procedure Laterality Date MOUTH SURGERY Visit Vitals Ht 5' 7 BMI 35.08 kg/m Smoking Status Former BSA 2.2 m Review of Systems Constitutional: Negative. HENT: Positive for congestion, ear pain, sinus pressure and sinus pain. Respiratory: Negative. Cardiovascular: Negative. Gastrointestinal: Negative. Genitourinary: Negative. Musculoskeletal: Negative. Skin: Negative. Neurological: Positive for headaches. Psychiatric/Behavioral: Negative. Allergic/Immunologic: Positive for immunocompromised state. Objective Physical Exam Vitals reviewed. Constitutional: Appearance: Normal appearance. HENT: Head: Normocephalic. Right Ear: A middle ear effusion is present. Left Ear: A middle ear effusion is present. Nose: Congestion present. Mouth/Throat: Mouth: Mucous membranes are moist. Pharynx: Oropharynx is clear. Eyes: Conjunctiva/sclera: Conjunctivae normal. Cardiovascular: Rate and Rhythm: Normal rate and regular rhythm. Pulmonary: Effort: Pulmonary effort is normal. Musculoskeletal: Cervical back: Neck supple. Lymphadenopathy: Cervical: No cervical adenopathy. Skin: General: Skin is warm and dry. Neurological: General: No focal deficit present. Mental Status: She is alert and oriented to person, place, and time. Psychiatric: Mood and Affect: Mood normal. Behavior: Behavior normal. Assessment/Plan Diagnoses and all orders for this visit: Acute non-recurrent pansinusitis - cefdinir (Omnicef) 300 MG capsule; Take 1 capsule (300 mg) by mouth in the morning and 1 capsule (300 mg) before bedtime. Do all this for 10 days. - methylPREDNISolone (Medrol Dospak) 4 MG tablets; Follow schedule on package instructions Start the above as directed. Reviewed potential s/e with patient. Encouraged probiotic while on antibiotic. Increase water intake, get plenty of rest. Can take OTC allergy medication for symptomatic relief. Tylenol prn. Follow up if no improvement in one week. Start the steroid. No Motrin while on ATB. This can increase the risk for a GI bleed. If your stools turn black and tarry, stop steroid and notify the office. No follow-ups on file. documented in this encounter [facility] 06-11-2024 Telephone encount er Note Pt has scheduled an apt [facility] 06-11-2024 Miscellaneous Notes Formattin g of this note might be different from the original. Pt has scheduled an apt Patient called stating she has a sinus infection and wondered if an anitbiotic could be called in for her. She has only taken advil for this no other otc meds. Her pharmacy is [facility]. documented in this encounter [facility] 06-10-2024 Telephone encount er Note Patient called stating she has a sinus infection and wondered if an anitbiotic could be called in for her. She has only taken advil for this no other otc meds. Her pharmacy is [facility]. [facility] 03-06-2024 History of Presen t illness Narrative Images from the original note were not included. HPI Results Additional comments: labs Last edited by Ellen Anderson LPN on 03/06/2024 8:51 AM. Subjective Patient ID: Rigoberto Barrios is a 73 y.o. female who presents for Hypertension and Results (labs). Hypertension Patient is here for follow-up of elevated blood pressure.Blood pressure is well controlled at home. Cardiac symptoms: none. Patient denies chest pain. Cardiovascular risk factors: advanced age (older than 55 for men, 65 for women), hypertension, and obesity (BMI >= 30 kg/m2). Hypertension Pertinent negatives include no chest pain, palpitations or shortness of breath. Current Outpatient Medications on File Prior to Visit Medication Sig Dispense Refill amLODIPine (Norvasc) 5 MG tablet Take 1 tablet (5 mg) by mouth Daily 90 tablet 5 atenolol (Tenormin) 25 MG tablet TAKE 1 TABLET BY MOUTH EVERY DAY FOR 100 DAYS 100 tablet 3 cholecalciferol (Vitamin D-3) 50 MCG (2000 UT) capsule Take 1 capsule by mouth in the morning. levothyroxine (Synthroid, Levoxyl) 100 MCG tablet TAKE 1 TABLET BY MOUTH ONCE EVERY MORNING ON AN EMPTY STOMACH 90 tablet 4 magnesium oxide (Mag-Ox) 400 MG tablet Take 400 mg by mouth in the morning. Multiple Vitamins-Minerals (OCUVITE ADULT 50+ PO) Daily. No current facility-administered medications on file prior to visit. No Known Allergies Social History Tobacco Use Smoking status: Former Current packs/day: 0.00 Types: Cigarettes Quit date: 10/16/1991 Years since quittin.4 Smokeless tobacco: Never Substance Use Topics Alcohol use: Never Comment: Caffeine 1-2 cups per day Drug use: Never Family History Problem Relation Name Age of Onset Hypertension Mother Cancer Father Past Medical History: Diagnosis Date Alopecia Anxiety Renan's thyroiditis (CMS/HCC) Hypertension (CMS/HCC) Kidney stones Obesity Plantar fasciitis Varicose vein of leg Past Surgical History: Procedure Laterality Date MOUTH SURGERY Visit Vitals BP 136/82 Pulse 71 Ht 5' 7 Wt 224 lb SpO2 96% BMI 35.08 kg/m Smoking Status Former BSA 2.2 m Review of Systems Respiratory: Negative for shortness of breath. Cardiovascular: Negative for chest pain and palpitations. Objective Physical Exam Constitutional: General: She is not in acute distress. Appearance: Normal appearance. She is well-developed. HENT: Head: Normocephalic and atraumatic. Eyes: General: No scleral icterus. Conjunctiva/sclera: Conjunctivae normal. Cardiovascular: Rate and Rhythm: Normal rate and regular rhythm. Heart sounds: Normal heart sounds. No murmur heard. Pulmonary: Effort: Pulmonary effort is normal. No respiratory distress. Breath sounds: Normal breath sounds. No wheezing, rhonchi or rales. Skin: General: Skin is warm and dry. Neurological: General: No focal deficit present. Mental Status: She is alert and oriented to person, place, and time. Psychiatric: Mood and Affect: Mood normal. Behavior: Behavior normal. Office Visit on 11/01/2023 Component Date Value Ref Range Status WHITE BLOOD CELL COUNT 11/01/2023 6.6 3.8 - 10.8 Thousand/uL Final RED BLOOD CELL COUNT 11/01/2023 4.41 3.80 - 5.10 Million/uL Final HEMOGLOBIN 11/01/2023 13.6 11.7 - 15.5 g/dL Final HEMATOCRIT 11/01/2023 39.8 35.0 - 45.0 % Final MCV 11/01/2023 90.2 80.0 - 100.0 fL Final MCH 11/01/2023 30.8 27.0 - 33.0 pg Final MCHC 11/01/2023 34.2 32.0 - 36.0 g/dL Final RDW 11/01/2023 12.4 11.0 - 15.0 % Final PLATELET COUNT 11/01/2023 312 140 - 400 Thousand/uL Final MPV 11/01/2023 10.5 7.5 - 12.5 fL Final ABSOLUTE NEUTROPHILS 11/01/2023 3,848 1,500 - 7,800 cells/uL Final ABSOLUTE LYMPHOCYTES 11/01/2023 1,808 850 - 3,900 cells/uL Final ABSOLUTE MONOCYTES 11/01/2023 660 200 - 950 cells/uL Final ABSOLUTE EOSINOPHILS 11/01/2023 251 15 - 500 cells/uL Final ABSOLUTE BASOPHILS 11/01/2023 33 0 - 200 cells/uL Final NEUTROPHILS 11/01/2023 58.3 % Final LYMPHOCYTES 11/01/2023 27.4 % Final MONOCYTES 11/01/2023 10.0 % Final EOSINOPHILS 11/01/2023 3.8 % Final BASOPHILS 11/01/2023 0.5 % Final Glucose 11/01/2023 100 (H) 65 - 99 mg/dL Final Comment: Fasting reference interval For someone without known diabetes, a glucose value between 100 and 125 mg/dL is consistent with prediabetes and should be confirmed with a follow-up test. BUN 11/01/2023 14 7 - 25 mg/dL Final Creatinine 11/01/2023 0.72 0.60 - 1.00 mg/dL Final EGFR 11/01/2023 88 > OR = 60 mL/min/1.73m2 Final BUN/CREATININE RATIO 11/01/2023 SEE NOTE: 6 - 22 (calc) Final Comment: Not Reported: BUN and Creatinine are within reference range. Sodium 11/01/2023 139 135 - 146 mmol/L Final Potassium, Bld 11/01/2023 5.0 3.5 - 5.3 mmol/L Final Chloride 11/01/2023 103 98 - 110 mmol/L Final Carbon Dioxide 11/01/2023 28 20 - 32 mmol/L Final Calcium 11/01/2023 9.5 8.6 - 10.4 mg/dL Final PROTEIN, TOTAL 11/01/2023 7.1 6.1 - 8.1 g/dL Final ALBUMIN 11/01/2023 4.3 3.6 - 5.1 g/dL Final GLOBULIN 11/01/2023 2.8 1.9 - 3.7 g/dL (calc) Final ALBUMIN/GLOBULIN RATIO 11/01/2023 1.5 1.0 - 2.5 (calc) Final BILIRUBIN, TOTAL 11/01/2023 1.0 0.2 - 1.2 mg/dL Final ALKALINE PHOSPHATASE 11/01/2023 82 37 - 153 U/L Final AST 11/01/2023 23 10 - 35 U/L Final ALT 11/01/2023 13 6 - 29 U/L Final CHOLESTEROL, TOTAL 11/01/2023 177 <200 mg/dL Final HDL CHOLESTEROL 11/01/2023 55 > OR = 50 mg/dL Final TRIGLYCERIDES 11/01/2023 88 <150 mg/dL Final LDL-CHOLESTEROL 11/01/2023 104 (H) mg/dL (calc) Final Comment: Reference range: <100 Desirable range <100 mg/dL for primary prevention; <70 mg/dL for patients with CHD or diabetic patients with > or = 2 CHD risk factors. LDL-C is now calculated using the Elle calculation, which is a validated novel method providing better accuracy than the Friedewald equation in the estimation of LDL-C. Spenser BOYER et al. ARELY. 2013;310(19): 8119-0484 (http://education.[employer] Health[employer]ostics.co m/faq/FFI461) CHOL/HDLC RATIO 11/01/2023 3.2 <5.0 (calc) Final NON HDL CHOLESTEROL 11/01/2023 122 <130 mg/dL (calc) Final Comment: For patients with diabetes plus 1 major ASCVD risk factor, treating to a non-HDL-C goal of <100 mg/dL (LDL-C of <70 mg/dL) is considered a therapeutic option. TSH W/REFLEX TO FT4 11/01/2023 2.96 0.40 - 4.50 mIU/L Final Assessment/Plan Diagnoses and all orders for this visit: Essential (primary) hypertension (CMS/HCC) - This is a chronic medical condition that is stable since last assessment. No changes in treatment are suggested at this time. Acquired hypothyroidism (CMS/HCC) Breast screening - Bilateral screening mammogram; Future Follow up in about 6 months (around 09/06/2024) for Wellness. documented in this encounter [facility] 07-09-2023 Evaluation note Encounter Date Diagnosis Assessment Notes Jun, Acute cough (ICD-10 - R05.1) Jun, Bronchitis (ICD-10 - J40) Advised patient that rapid COVID/influenza A/B test was negative today in office. Discussed diagnosis with patient in detail. Advised patient that cough may linger for 3 weeks. Will treat today with antibiotic. Reviewed allergies and recent antibiotic use. Advised to take medications as prescribed, reviewed side effects of steroid, take with food and plenty of water, finish entire course. Encouraged supportive care as directed, push fluids and rest, may use Tylenol as needed for fever/discomfor t, cool mist humidifier. Patient to follow up with PCP in 2-3 days. Immediate eval if SOB, difficulty breathing, chest pain, dizziness, or other concerning symptoms. Patient verbalizes understanding and is agreeable to treatment plan [employer] Other 11-26-2021 Evaluation note* Encounter Date Diagnosis Assessment Notes Treatment Notes Treatment Clinical Notes May, Herpes zoster without complication (ICD-10 - B02.9) Continue home medications as prescribed. Take the valacyclovir as prescribed until gone. Use the lidocaine gel as prescribed as needed for pain. You also may try the Voltaren cream as well. Follow-up with your family physician if no improvement in 2 to 3 days [employer] Other Evaluation note* Diagnosis Acute non-recurrent pansinusitis- Primary [facility] Diagnosis Essential (primary) hypertension (CMS/HCC)- Primary Unspecified essential hypertension Acquired hypothyroidism (CMS/HCC) Unspecified hypothyroidism Breast screening Breast screening, unspecified [facility] Diagnosis Routine general medical examination at health care facility- Primary Routine general medical examination at a health care facility ACP (advance care planning) Other specified counseling Essential (primary) hypertension (CMS/HCC) Unspecified essential hypertension Primary osteoarthritis involving multiple joints Acquired hypothyroidism (CMS/HCC) Unspecified hypothyroidism Class 2 obesity without serious comorbidity with body mass index (BMI) of 36.0 to 36.9 in adult, unspecified obesity type documented in this encounter [facility]* Diagnosis Hav (hallux abducto valgus), 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, left Capsulitis of metatarsophalangeal (MTP) joint of left foot documented in this encounter [facility]* Diagnosis Capsulitis of metatarsophalangeal (MTP) joint of left foot- Primary Metatarsal deformity, left Contracture of left ankle [facility] N[facility] - Reported* Type Description Date Medical History renan's disease Medical History HTN Medical History thyroid nodule [employer] Other Summary Purpose Family History No Family History Records FoundNo Family History Records FoundNo Family History Records Found Advance Directives No Advanced Directives Records FoundNo Advanced Directives Records FoundNo Advanced Directives Records Found Additional Source Comments REASON FOR VISIT (unrecogniz ed section and content) Reason Comments Sinusitis Reason Comments Hypertension Results labs Reason Comments Medicare Annual Wellness Visit Subsequen t Reason Comments Bunions Reason Comments Follow-up INFORMATION SOURCE (unrecogn ized section and content) DATE CREATED AUTHOR 01/08/2022 [facility] DATE CREATED AUTHOR AUTHOR'S ORGANIZ ATION 09/14/2024 [facility] DATE CREATED AUTHOR AUTHOR'S ORGANIZ ATION 02/15/2025 [facility] Care Teams (unrecognized sec tion and content) Bag Checker Relationship Specialty Start Date End Date Noah Bethea MD [address] [place] [address] PCP - [employer] 07/10/17 Noah Bethea MD [address] [place] [address] PCP - General Internal Medicine 01/17/23 Bag Checker Relationship Specialty Start Date End Date Noah Bethea MD [address] [place] [address] PCP - [employer] 07/10/17 Noah Bethea MD [address] [place] [address] PCP - General Internal Medicine 01/17/23 Bag Checker Relationship Specialty Start Date End Date Noah Bethea MD [address] [place] [address] PCP - [employer] 07/10/17 Noah Bethea MD [address] [place] [address] PCP - General Internal Medicine 01/17/23 Bag Checker Relationship Specialty Start Date End Date Noah Bethea MD [address] [place] [address] PCP - [employer] 07/10/17 Noah Bethea MD [address] [place] [address] PCP - General Internal Medicine 01/17/23 Bag Checker Relationship Specialty Start Date End Date Noah Bethea MD [address] [place] [address] PCP - [employer] 07/10/17 Noah Bethea MD [address] [place] [address] PCP - General Internal Medicine 01/17/23 Bag Checker Relationship Specialty Start Date End Date Noah Bethea MD [address] [place] [address] PCP - [employer] 07/10/17 Noah Bethea MD [address] [place] [address] PCP - General Internal Medicine 01/17/23 Bag Checker Relationship Specialty Start Date End Date Noah Bethea MD [address] [place] [address] PCP - [employer] 07/10/17 Noah Bethea MD [address] [place] [address] PCP - General Internal Medicine 01/17/23 Bag Checker Relationship Specialty Start Date End Date Noah Bethea MD [address] [place] [address] PCP - [employer] 07/10/17 Noah Bethea MD [address] [place] [address] PCP - General Internal Medicine 01/17/23 Bag Checker Relationship Specialty Start Date End Date Noah Bethea MD [address] [place] [address] PCP - [employer] 07/10/17 Noah Bethea MD 112 [facility] 110 [place] [address] PCP - General Internal Medicine 01/17/23 FOR RECORDS PERTAINING TO PATIENTS WHO ARE OR HAVE BEEN ENROLLED IN A CHEMICAL DEPENDENCY/SUBSTANCEABUSE PROGRAM, SOME INFORMATION MAY BE OMITTED. This clinical summary was aggregated from multiple sources. Caution should be exercised in using it in the provision of clinical care. This summary normalizes information from multiple sources, and as a consequence, information in this document may materially change the coding, format and clinical context of patient data. In addition, data may be omitted in some cases. CLINICAL DECISIONS SHOULD BE BASED ON THE PRIMARY CLINICAL RECORDS. [employer] provides no warranty or guarantee of the accuracy or completeness of information in this document.
== END 2025-02-25 10:32 | disposition home or self-care (01) ==
LOC: RAD 10:31
PROVIDERS: Family Provider Internal Medicine; PCP Internal Medicine; Visit Provider Orthopaedic Surgery
DX: M25.561 Pain in right knee (principal)
CPT/HCPCS: 72170; 73564

== ENCOUNTER 2025-04-22 08:44 | Outpatient (OUT) | payer MEDICARE, SELFPAY ==
--- OUTSIDE RECORDS SUMMARY | 2021-02-08 05:15 | XMS_ITS | Continuity of Care Document ---
Author Organization [facility] Address [address] [place] [address] Phone Care Team Providers Care Exercise Equipment Repair Technician Name Role Phone River Saucedo Unavailable Unavailable Procedures Procedure Date CHIROPRACTIC MANIPULATION CHIROPRACTIC MANIPULATION CHIROPRACTIC MANIPULATION CHIROPRACTIC MANIPULATION CHIROPRACTIC MANIPULATION CHIROPRACTIC MANIPULATION CHIROPRACTIC MANIPULATION CHIROPRACTIC MANIPULATION CHIROPRACTIC MANIPULATION CHIROPRACTIC MANIPULATION CHIROPRACTIC MANIPULATION CHIROPRACTIC MANIPULATION CHIROPRACTIC MANIPULATION CHIROPRACTIC MANIPULATION CHIROPRACTIC MANIPULATION CHIROPRACTIC MANIPULATION CHIROPRACTIC MANIPULATION CHIROPRACTIC MANIPULATION CHIROPRACTIC MANIPULATION CHIROPRACTIC MANIPULATION CHIROPRACTIC MANIPULATION CHIROPRACTIC MANIPULATION CHIROPRACTIC MANIPULATION CHIROPRACTIC MANIPULATION Advance Directives Directive Yes / No Effective Date File Name No Information Encounters Encounter Description Practice Location Reason(s) For Visit Diagnoses Date Provider Providers Copied on Encounter [facility], [address], [place], [id number], [place] tel:[phone] [facility] lumbar spine (chief complaint)l umbar spine (chief complaint) Segmental and somatic dysfunction of lumbar regionLow back painOther intervertebral disc degeneration, lumbar regionSegmental and somatic dysfunction of thoracic region 1 Lewis Holman. [address], [place], [id number] , . tel:[phone] [facility], [address], [place], [id number], tel:[phone] [facility] lumbar spine (chief complaint)l umbar spine (chief complaint) Segmental and somatic dysfunction of lumbar regionLow back painOther intervertebral disc degeneration, lumbar regionSegmental and somatic dysfunction of thoracic region 1 Lewis Holman. [address], [place], [id number] , [place]. [phone] [facility], [address] [place] [address], [id number], tel:[phone] [facility] lumbar spine (chief complaint)l umbar spine (chief complaint) Segmental and somatic dysfunction of lumbar regionLow back painOther intervertebral disc degeneration, lumbar regionSegmental and somatic dysfunction of thoracic region 1 Lewis Holman. [address], [place], [id number] , [place]. tel:[phone] [facility], [address] [place] [address], [id number], [place] tel:[phone] [facility] lumbar spine (chief complaint)l umbar spine (chief complaint) Segmental and somatic dysfunction of lumbar regionLow back painOther intervertebral disc degeneration, lumbar regionSegmental and somatic dysfunction of thoracic region 1 Lewis Holman. [address] [place] [address], [id number] , [place]. [phone] [facility], [address], [place], [id number], tel:[phone] [facility] lumbar spine (chief complaint)l umbar spine (chief complaint) Segmental and somatic dysfunction of lumbar regionLow back painOther intervertebral disc degeneration, lumbar regionSegmental and somatic dysfunction of cervical region 1 Lewis Holman. [address], [place], [id number] , [place]. tel: [phone] [facility], [address], [place], [id number], tel:[phone] [facility] lumbar spine (chief complaint)l umbar spine (chief complaint) Segmental and somatic dysfunction of lumbar regionLow back painOther intervertebral disc degeneration, lumbar regionSegmental and somatic dysfunction of thoracic region 1 Lewis Holman. [address], [place], [id number] , [place]. tel: [phone] [facility], [address], [place], [id number], [place] tel:[phone] [facility] lumbar spine (chief complaint)l umbar spine (chief complaint) Segmental and somatic dysfunction of lumbar regionLow back painOther intervertebral disc degeneration, lumbar regionSegmental and somatic dysfunction of cervical region 1 Lewis Holman. [address] [place] [address], [id number] , [place]. tel: [phone] [facility], [address], [place], [id number], [place] tel:[phone] [facility] lumbar spine (chief complaint)l umbar spine (chief complaint) Segmental and somatic dysfunction of lumbar regionLow back painOther intervertebral disc degeneration, lumbar regionSegmental and somatic dysfunction of thoracic region 1 Lewis Holman. [address], [place], [id number] , [place]. tel: [phone] [facility], [address] [place] [address], [id number], [place] tel:[phone] [facility] lumbar spine (chief complaint)l umbar spine (chief complaint) Segmental and somatic dysfunction of lumbar regionLow back painOther intervertebral disc degeneration, lumbar regionSegmental and somatic dysfunction of thoracic region 1 Lewis Holman. [address], [place], [id number] , [place]. tel: [phone] [facility], [address], [place], [id number], [place] tel:[phone] [facility] lumbar spine (chief complaint)l umbar spine (chief complaint) Segmental and somatic dysfunction of lumbar regionLow back painOther intervertebral disc degeneration, lumbar regionSegmental and somatic dysfunction of thoracic region 1 Lewis Holman. [address], [place], [id number] , [place]. tel: [phone] [facility], [address], [place], [id number], [place] tel:[phone] [facility] lumbar spine (chief complaint)l umbar spine (chief complaint) Segmental and somatic dysfunction of lumbar regionLow back painOther intervertebral disc degeneration, lumbar regionSegmental and somatic dysfunction of thoracic region 1 Lewis Holman. [address], [place], [id number] , [place]. tel: [phone] [facility], [address], [place], [id number], [place] tel:[phone] [facility] lumbar spine (chief complaint)l umbar spine (chief complaint) Segmental and somatic dysfunction of lumbar regionLow back painOther intervertebral disc degeneration, lumbar regionSegmental and somatic dysfunction of thoracic region 1 Lewis Holman. [address], [place], [id number] , [place]. tel: [phone] [facility], [address], [place], [id number], [place] tel:[phone] [facility] lumbar spine (chief complaint)l umbar spine (chief complaint) Segmental and somatic dysfunction of lumbar regionLow back painOther intervertebral disc degeneration, lumbar regionSegmental and somatic dysfunction of thoracic region 1 Lewis Holman. [address], [place], [id number] , [place]. tel: [phone] [facility], [address], [place], [id number], [place] tel:[phone] [facility] lumbar spine (chief complaint)l umbar spine (chief complaint) Segmental and somatic dysfunction of lumbar regionLow back painOther intervertebral disc degeneration, lumbar regionSegmental and somatic dysfunction of cervical region Oct- 1 Lewis Holman. [address], [place], [id number] , [place]. tel: [phone] [facility], [address], [place], [id number], [place] tel:[phone] [facility] lumbar spine (chief complaint)l umbar spine (chief complaint) Segmental and somatic dysfunction of lumbar regionLow back painOther intervertebral disc degeneration, lumbar regionSegmental and somatic dysfunction of thoracic region Oct- 1 Lewis Holman. [address] [place] [address], [id number] , [place]. tel: [phone] [facility], [address] [place] [address], [id number], [place] tel:[phone] [facility] lumbar spine (chief complaint)l umbar spine (chief complaint) Segmental and somatic dysfunction of lumbar regionLow back painOther intervertebral disc degeneration, lumbar regionSegmental and somatic dysfunction of thoracic region Oct- 1 Lewis Holman. [address] [place] [address], [id number] , [place]. tel: [phone] [facility], [address] [place] [address], [id number], [place] tel:[phone] [facility] lumbar spine (chief complaint)l umbar spine (chief complaint) Segmental and somatic dysfunction of lumbar regionLow back painOther intervertebral disc degeneration, lumbar regionSegmental and somatic dysfunction of thoracic region Oct- 1 Lewis Holman. [address] [place] [address], [id number] , [place]. tel: [phone] [facility], [address] [place] [address], [id number], [place] tel:[phone] [facility] lumbar spine (chief complaint)l umbar spine (chief complaint) Segmental and somatic dysfunction of lumbar regionLow back painOther intervertebral disc degeneration, lumbar regionSegmental and somatic dysfunction of thoracic region Apr-1 2-202 1 Lewis Holman. [address], [place], [id number] , [place]. tel: [phone] [facility], [address], [place], [id number], [place] tel:[phone] [facility] lumbar spine (chief complaint)l umbar spine (chief complaint) Segmental and somatic dysfunction of lumbar regionLow back painOther intervertebral disc degeneration, lumbar regionSegmental and somatic dysfunction of thoracic region Apr-0 8- 1 Lewis Holman. [address], [place], [id number] , [place]. tel: [phone] [facility], [address] [place] [address], [id number], [place] tel:[phone] [facility] lumbar spine (chief complaint)l umbar spine (chief complaint) Segmental and somatic dysfunction of lumbar regionLow back painOther intervertebral disc degeneration, lumbar regionSegmental and somatic dysfunction of thoracic region Apr-0 5- 1 Lewis Holman. [address] [place] [address], [id number] , [place]. tel: [phone] [facility], [address], [place], [id number], [place] tel:[phone] [facility] lumbar spine (chief complaint)l umbar spine (chief complaint) Segmental and somatic dysfunction of lumbar regionLow back painOther intervertebral disc degeneration, lumbar regionSegmental and somatic dysfunction of thoracic region Apr-0 1-202 1 Lewis Holman. [address] [place] [address], [id number] , [place]. tel: [phone] [facility], [address] [place] [address], [id number], [place] tel:[phone] [facility] lumbar spine (chief complaint)l umbar spine (chief complaint) Segmental and somatic dysfunction of lumbar regionLow back painOther intervertebral disc degeneration, lumbar regionSegmental and somatic dysfunction of thoracic region Mar-3 0-202 1 Lewis Holman. [address], [place], [id number] , [place]. tel:[phone] [facility], [address], [place], [id number], [place] tel:[phone] [facility] lumbar spine (chief complaint)l umbar spine (chief complaint) Segmental and somatic dysfunction of lumbar regionLow back painOther intervertebral disc degeneration, lumbar regionSegmental and somatic dysfunction of thoracic region 1 Lewis Holman. [address], [place], [id number] , [place]. tel:[phone] [facility], [address], [place], [id number], [place] tel:[phone] [facility] lumbar spine (chief complaint)l umbar spine (chief complaint) Segmental and somatic dysfunction of lumbar regionLow back painOther intervertebral disc degeneration, lumbar regionSegmental and somatic dysfunction of cervical region 1 Lewis Holman. [address] [place] [address], [id number] , [place]. tel:[phone] Family History Family Member Type Diagnosis Age At Onset No Information Payers Payer name Insurance type Covered constitution party ID Authoriza tion(s) [employer] PPS MB [id number] Social History Type Description Quantity Date Captured Comments Alcohol Use Details Unknown Caffeine Use Details Unknown Tobacco Use Status No Information Smoking Status No Information Sex Female Sexual Orientation Straight or heterosexual Gender Identity Female Chief Complaint And Reason For Visit From encounter dated '02/08/2021 09:15'. lumbar spine (chief complaint) lumbar spine (chief complaint). Description: Pt presents with tightness/soreness in mid and low back this week Reason For Referral Reason For Referral No Information History Of Present Illness Encounter Date Complaint History Of Prese nt Illness lumbar spine lumbar spine Pt presents with tightness/soreness in mid and low back this week lumbar spine lumbar spine pt reports halie ess and restricted motion in low back lumbar spine lumbar spine Pt reports halie ess in low back this week although overall feeling better. lumbar spine lumbar spine Pt reports sligh t improvement since last visit. lumbar spine lumbar spine Pt reports halie ess in mid lumbar area this week lumbar spine lumbar spine Pt presents with tightness in low back on left extending into mid back lumbar spine lumbar spine Pt reports tende rness in low back on left this week. lumbar spine lumbar spine Pt reports tight ness in low back. Reviewed MRI from 2012 which showed herniated disc and degeneration throughout lumbar spine. lumbar spine lumbar spine Pt reports sligh t improvement since last visit. lumbar spine lumbar spine Pt reports sligh t improvement since last visit. lumbar spine lumbar spine Pt reports feeli ng the same since last visit. lumbar spine lumbar spine Pt reports tight ness in low back when riding exercise bike. lumbar spine lumbar spine Pt reports sligh t improvement since last visit. lumbar spine lumbar spine Pt reports hands going numb when she rides her stationary bike for too long. lumbar spine Pt continues to progress as anticipated. lumbar spine lumbar spine lumbar spine Pt reports sligh t improvement since last visit. lumbar spine lumbar spine Pt reports halie ess in low back on right lumbar spine lumbar spine Pt reports pain in low back on right this week. lumbar spine lumbar spine Pt reports sligh t improvement since last visit. lumbar spine lumbar spine Pt reports halie ess in low back this week. lumbar spine lumbar spine Pt reports sligh t improvement since last visit. lumbar spine lumbar spine Pt reports didi nued low back pain this week. lumbar spine Pt reports doing well after first adjustment with no adverse effects. lumbar spine lumbar spine lumbar spine C/O flare up of chronic low back pain extending up between shoulder blades.Sx are the result of regular ADL'S. No specific injury or trauma is noted. Pain is primarily at L3-L5 PVM on the Rt. & Lt. and extends to the SI joint, Rt. & Lt. Pain is local, dull, and without radiation to the lower extremities. No sensory or motor changes noted. Pain interferes with regular ADL's. Increase in pain with movement/ROM and ADL'S. Some decrease in symptoms with rest. No change in the pain pattern from the onset of symptoms. Pain pattern is as prior times. Functional Status Date Functional Assessmen t No Information Instructions Date Instruction Additional Infor mation No Information Assessments Type Assessment Date assessment Segmental and somatic dysfunctio n of lumbar region assessment Low back pain assessment Other intervertebral disc degene ration, lumbar region assessment Segmental and somatic dysfunctio n of thoracic region impression Patient Care Teams Name Effective Dates (start - stop) Status Members No Information
--- OUTSIDE RECORDS SUMMARY | 2025-04-22 08:46 | XMS_ITS | Encounter Summary ---
Author Organization [facility] Address [address] [place] [address] Care Team Providers Care Water Pipe Installer Name Role Phone Noah Bethea MD Unavailable [phone] Noah Bethea MD Primary Care Provider [phone] Encounter Details Date Type Department Care Team (Late Contact Info) Description 03/15/2023 Orders Only [facility] [place] [facility] [address] [place] [address] A, Unknown Practice [address] [place], [place] [id number] Social History Tobacco Use Types Packs/Day Years [...] Care Team (Late st Contact Info) Description 09/16/2025 9:00 AM EDT Office Visit [facility] [place] [facility] [address] [place] [address] Jessa Polanco PA [address] [place], [place] [id number] documented as of this encounter Procedures Procedure Name Priority Date/Time Associated Diagnosis Comments MAMMOGRAM* Routine 03/15/2023 12:52 PM EDT documented in this encounter Results * MAMMOGRAM* (03/15/2023 12:52 PM EDT) Anatomical Region Laterality Modality Radiographic Christen ging us Unknown Practice A IMG XR PROCEDURES Final Resul t documented in this encounter Visit Diagnoses Not on filedocumented in this encounter Care Teams Water Pipe Installer Relationship Specialty Start Date End Date Noah Bethea MD [address] [facility] 110 [place] [address] PCP - [employer] 07/10/17 Noah Bethea MD [address] [facility] 110 [place] [address] PCP - General Internal Medicine 01/17/23 documented as of this encounter
--- OUTSIDE RECORDS SUMMARY | 2025-04-22 08:46 | XMS_ITS | Encounter Summary ---
Author Organization [facility] Address [address] [place] [address] Care Team Providers Care Grocery Bagger Name Role Phone Noah Bethea MD Unavailable [phone] Noah Bethea MD Primary Care Provider [phone] Encounter Details Date Type Department Care Team (Late Contact Info) Description 01/31/2023 Abstract [facility] [place] [facility] [address] [facility] 110 [place] [phone] Noah Bethea MD [address] [facility] 110 [place] [address] Social History Tobacco Use Types Packs/Day Years [...] 9:00 AM EDT Office Visit [facility] [place] [facility] [address] [place] [phone] Jessa Polanco PA [address] [place] [address] documented as of this encounter Visit Diagnoses Not on filedocumented in this encounter Care Teams Grocery Bagger Relationship Specialty Start Date End Date Noah Bethea MD [address] [facility] 110 [place] [address] PCP - [employer] 07/10/17 Noah Bethea MD [address] [facility] 110 [place] [address] PCP - General Internal Medicine 01/17/23 documented as of this encounter
--- OUTSIDE RECORDS SUMMARY | 2025-04-22 08:46 | XMS_ITS | Encounter Summary ---
Author Organization [facility] Address [address] [place] [address] Care Team Providers Care Mechanical Equipment Sales Engineer Name Role Phone Noah Bethea MD Unavailable [phone] Noah Bethea MD Primary Care Provider [phone] Encounter Details Date Type Department Care Team (Late st Contact Info) Description 03/03/2023 Abstract [facility] 112 [facility] 150 [place] [address] Belen Corrales NP Social History [...] 09/16/2025 9:00 AM EDT Office Visit [facility] [place] [facility] [address] [facility] 110 [place] [address] Jessa Polanco PA [address] [facility] 110 [place], [place] [id number] documented as of this encounter Visit Diagnoses Not on filedocumented in this encounter Care Teams Mechanical Equipment Sales Engineer Relationship Specialty Start Date End Date Noah Bethea MD [address] [facility] 110 [place] [address] PCP - [employer] 07/10/17 Noah Bethea MD [address] [facility] 110 [place] [address] PCP - General Internal Medicine 01/17/23 documented as of this encounter
--- OUTSIDE RECORDS SUMMARY | 2025-04-22 08:47 | XMS_ITS | Encounter Summary ---
Author Organization [facility] Address [address] [place] [address] Care Team Providers Care Hoisting Pile Driving Engineer Name Role Phone Noah Bethea MD Unavailable [phone] Noah Bethea MD Primary Care Provider Encounter Details Date Type Department Care Team (Late st Contact Info) Description 09/11/2024 Abstract [facility] [place] [facility] [address] [facility] 110 [place] [phone] Noah Bethea MD [address] [place] [address] Social History Tobacco Use Types Packs/Day Years [...] Visit [facility] [place] [facility] [address] [facility] 110 [place] [address] Jessa Polanco PA [address] [facility] 110 [place] [address] documented as of this encounter Visit Diagnoses Not on filedocumented in this encounter Additional Health Concerns Assessment Noted Time PHQ-9 Depression Total Score: 0 11/01/19 24 8:00 AM EDT documented as of this encounter Care Teams Hoisting Pile Driving Engineer Relationship Specialty Start Date End Date Noah Bethea MD [address] [facility] 110 [place] [address] PCP - [employer] 07/10/17 Noah Bethea MD [address] [facility] [address] [place] [address] PCP - General Internal Medicine 01/17/23 documented as of this encounter
--- OUTSIDE RECORDS SUMMARY | 2025-04-22 08:47 | XMS_ITS | Encounter Summary ---
Author Organization [facility] Address [address] [place] [address] Care Team Providers Care Furrier Designer Name Role Phone Noah Bethea MD Unavailable [phone] Noah Bethea MD Primary Care Provider [phone] Reason for Visit * Reason Comments Med Refill Encounter Details Date Type Department Care Team (Late Contact Info) Description 04/18/2025 Refill [facility] [place] [facility] [address] [facility] 110 [place] [phone] Noah Bethea MD [address] [facility] 110 [place] [address] Essential (primary) hypertension Social History Tobacco Use Types Packs/Day Years Used Date Smoking Tobacco: Former Cigarettes Q uit: 10/16/1991 Smokeless Tobacco: Never Alcohol Use Standard Drinks/Week Comments Never 0 (1 standard drink = 0.6 oz pur e alcohol) Caffeine 1-2 cups per day PHQ-2 Answer Date Recorded Patient Health Questionnaire-2 Score 0 04/02/2025 Comments Unknown Sex and Gender Information Value Date Recorded Sex Assigned at Not on file Legal Sex Female 6:47 PM EDT Gender Identity Not on file Sexual Orientation Not on file documented as of this encounter Plan of Treatment Upcoming Encounters Date Type Department Care Team (Late Contact Info) Description 09/16/2025 9:00 AM EDT Office Visit [facility] [place] [facility] [address] [place] [phone] Jessa Polanco PA [address] [place], [place] [address] documented as of this encounter Visit Diagnoses Diagnosis Essential (primary) hypertension Unspecified essential hypertension documented in this encounter Additional Health Concerns Assessment Noted Time PHQ-9 Depression Total Score: 0 11/01/19 24 8:00 AM EDT documented as of this encounter Care Teams Furrier Designer Relationship Specialty Start Date End Date Noah Bethea MD 112 [facility] 110 [place] [address] PCP - [employer] 07/10/17 Noah Bethea MD 112 [facility] 110 [place] [address] PCP - General Internal Medicine 01/17/23 documented as of this encounter
--- OUTSIDE RECORDS SUMMARY | 2025-04-22 08:47 | XMS_ITS | Encounter Summary ---
Author Organization [facility] Address [address] [place] [address] Care Team Providers Care [employer] Principal Name Role Phone Noah Bethea MD Unavailable [phone] Noah Bethea MD Primary Care Provider [phone] Encounter Details Date Type Department Care Team (Late Contact Info) Description 11/02/2023 Abstract [facility] [place] [facility] [address] [facility] 110 [place] [address] Noah Bethea MD [address] [place] [address] Social History Tobacco Use Types Packs/Day Years [...] [place] [facility] [address] [place] [phone] Jessa Polanco PA [address] [place] [address] documented as of this encounter Visit Diagnoses Not on filedocumented in this encounter Additional Health Concerns Assessment Noted Time PHQ-9 Depression Total Score: 0 11/01/19 24 8:00 AM EDT documented as of this encounter Care Teams [employer] Principal Relationship Specialty Start Date End Date Noah Bethea MD 112 [facility] 110 [place] [address] PCP - [employer] 07/10/17 Noah Bethea MD 112 [facility] 110 [place] [address] PCP - General Internal Medicine 01/17/23 documented as of this encounter
--- OUTSIDE RECORDS SUMMARY | 2025-04-22 08:47 | XMS_ITS | Clinical Summary ---
Author Organization [facility] Address [address] [place], [place] [id number] Care Team Providers Care Route Salesman Name Role Phone Luis E Umanzor Primary Care Provider [phone] Allergies No known active allergies Medications levothyroxine [...] Density Screening 2015 Advance Directive Discussion 07/10/2024 Covid-19 Vaccine (1 - 2024-26 season) 2025 Influenza Vaccine (#1) 2025 RSV Vaccine (1 - 1-dose 75+ series) [address] Salesman Relationship Specialty Start Date End Date Luis E Umanzor [address] [place] [phone] PCP - General Family Medicine 06/27/12
--- OUTSIDE RECORDS SUMMARY | 2025-04-22 08:47 | XMS_ITS | Clinical Summary ---
Author Organization [facility] Address [address] [facility] [place] [address] Care Team Providers Care Milling Machine Set Up Operator Name Role Phone Noah Bethea MD Unavailable [phone] Noah Bethea MD Primary Care Provider [phone] Allergies Active Allergy Reactions Criticality Noted Date Comments Meloxicam Other Medium 04/02/2025 Hair Loss, Elevated BP Medications Multiple Vitamins-Minerals (OCUVITE ADULT 50+ PO) Daily. Active cholecalciferol (Vitamin D-3) 50 MCG (1999) capsule Take 1 capsule by mouth in the morning. Active magnesium oxide (Mag-Ox) 400 MG tablet Take 400 mg by mouth in the morning. Active atenolol (Tenormin) 25 MG tabletIndications :Essential (primary) hypertension TAKE 1 TABLET BY MOUTH EVERY DAY 90 tablet 4 12/24/19 25 Active levothyroxine (Synthroid, Levoxyl) 100 MCG tabletIndications :Acquired hypothyroidism TAKE 1 TABLET BY MOUTH ONCE EVERY MORNING ON AN EMPTY STOMACH 90 tablet 4 01/18/20 25 Active diclofenac sodium 1 % gel Apply 4 g topically 4 (four) times a day as needed 03/23/20 25 Active amLODIPine (Norvasc) 5 MG tabletIndications :Essential (primary) hypertension TAKE 1 TABLET BY MOUTH EVERY DAY 100 tablet 3 04/18/20 25 Active amLODIPine (Norvasc) 5 MG tabletIndications :Essential (primary) hypertension Take 1 tablet (5 mg) by mouth Daily 90 tablet 5 01/23/20 24 2024 Discontinued meloxicam (Mobic) 15 MG tablet Take 15 mg by mouth Daily 03/24/20 25 2024 Discontinued(I neffective) Active Problems Problem Noted Date Diagnosed Date Class 2 obesity without seri ous comorbidity with body mass index (BMI) of 36.0 to 36.9 in adult 09/11/2024 Acquired hypothyroidism 01/16/2023 Decreased estrogen level 01/16/2023 Diverticulosis 01/16/2023 Essential (primary) hypertension 01/16/2023 Internal hemorrhoids 01/16/2023 Osteoarthritis of knee 01/16/2023 Primary osteoarthritis 01/16/2023 Resolved Problems Problem Noted Date Diagnosed Date Resolved Date Nontoxic uninodular goiter 08/20/2012 0 04/02/2025 Encounters Date Type Department Care Team Description 04/18/2025 Refill [facility] [place] [facility] [address] [facility] [address] [place] [address] Noah Bethea MD Essential (primary) hypertension 04/02/2025 10:30 AM EDT Office Visit [facility] [place] [facility] [address] [facility] [address] [place] [address] Jessa Polanco PA Essential (primary) hypertension (Primary Dx); Encounter for screening mammogram for malignant neoplasm of breast; Estrogen deficiency; Primary osteoarthritis involving multiple joints; Primary osteoarthritis of right knee 04/02/2025 Bamboo flowsheet [facility] [place] [facility] [address] [facility] [address] [place] [address] Jessa Polanco PA 04/02/2025 Travel 02/25/2025 [facility] [address] [facility] [address] [place] [address] Noah Bethea MD 02/25/2025 Clinisync Result Encounter NOMS External Department Unsolicited Provider, Generic External Data 02/25/2025 Clinisync Result Encounter NOMS External Department Unsolicited Provider, Generic External Data 02/13/2025 9:20 AM EDT Clinical Support [facility] [address] [place] [address] Po Cha, NARCISO Capsulitis of metatarsophalangeal (MTP) joint of left foot (Primary Dx); Metatarsal deformity, left; Contracture of left ankle 02/13/2025 Bamboo flowsheet [facility] [address] [place] [id number] Po Cha DPM 02/13/2025 Travel from Last 3 Months Immunizations Immunization Administration [...] Sign Reading Time Taken Comments Blood Pressure 158/102 04/02/2025 10:24 AM EDT Just took her med not too long ago. Pulse 74 04/02/2025 10:24 AM EDT Temperature 36.4 C (97.5 F) 06/11/2024 9:56 AM EST Respiratory Rate 16 04/02/2025 10:2 4 AM EDT Oxygen Saturation 96% 04/02/2025 10: 24 AM EDT Inhaled Oxygen Concentration - - Weight 107 kg (235 lb 9.6 oz) 04/02/2025 10:24 AM EDT Height 170.2 cm (5' 7 ) 04/02/2025 10:2 4 AM EDT Body Mass Index 36.9 04/02/2025 10:24 AM EDT Plan of Treatment Upcoming Encounters Date Type Department Care Team (Late st Contact Info) Description 09/16/2025 9:00 AM EDT Office Visit [facility] [place] [facility] [address] [facility] [place] [address] Jessa Polanco PA [address] [place] [address] Health Maintenance Due Date Last Done Comments CT Colonography 1950 FIT-DNA 1950 FIT 1950 FOBT 1950 Sigmoidoscopy 1950 Influenza Vaccine (#1) 2025 05/01/2020 Mammogram 03/26/2025 03/26/2024, /0 12/2022, 03/15/2023, Additional history exists Medicare Annual Wellness (AWV) 09/11/2025 0 09/11/2024, 11/01/2023, 01/18/2023 Colonoscopy 09/26/2028 09/26/2018 Colorectal Cancer Screening 09/26/2028 Pneumococcal Vaccine: 65+ Years Completed 4 Procedures Procedure Name Priority Date/Time Associated Diagnosis Comments XR KNEE 4+ VIEWS RIGHT 5 11:54 AM EDT XR PELVIS 1-2 VIEWS 02/25/2025 1 1:52 AM EDT MM TOMOSYNTHESIS SCREENING BI 03/26/2024 12:48 PM EDT COLONOSCOPY Routine 09/26/2018 12:00 PM EDT from Last 3 Months or Most Recently Relevant to Health Maintenance Results * XR knee 4+ views right (02/25/2025 11:54 AM EDT) Anatomical Region Laterality Modality Lower Extremities, Knee Right Radiogra [facility] Imaging 02/25/2025 11:5 4 AM EDT Narrative 02/25/2025 11:56 AM EDT The [address] [address] XRay Report Signed Patient: RIGOBERTO BEY MR#: [id number] : 1950 Acct:[id number] Age/Sex: 74 / F ADM Date: 02/25/25 Loc: RAD Attending Dr: Carmen Rader M.D. Ordering Physician: Carmen Rader Date of Service: 02/25/25 Procedure(s): XR knee RT 4V Accession Number(s): [id number] cc: NOAH BETHEA ; Carmen Rader The [place] [address] Patient Name: RIGOBERTO BEY MRN: [id number] date: 1950 Sex: F Assigned Patient Location: RAD Current Patient Location: RAD Accession/Order Number: [id number] Exam Date: 02/25/2025 11:52 Report Date: 02/25/2025 11:54 At the request of: CARMEN RADER MD Procedure: XR knee RT 4V 4 [...] Restrepo M.D. 02/25/2025 11:54 AM Dictation Location: [place] [address] Electronically authenticated by: [id number] Y Date: 02/25/2025 11:54 Dictated By: Alberto Restrepo M.D. Signed By: 02/25/25 1156 DD/ 1154 TD/TT: Personnel And Payroll Technician: Procedure Note Radiology, Radiologist, MD - 02/25/2025 [place] [address] XRay Report Signed Patient: RIGOBERTO BEY KMR#: [id number] : 1950Acct:[id number] Age/Sex: 74 / FADM Date: 02/25/25 Loc: RAD Attending Dr: Carmen Rader M.D. Ordering Physician: Carmen Rader Date of Service: 02/25/25 Procedure(s): XR knee RT 4V Accession Number(s): [id number] cc: NOAH BETHEA ; Carmen Rader [place] [id number] Patient Name: RIGOBERTO BEY MRN: [id number] date: 1950 Sex: F Assigned Patient Location: RAD Current Patient Location: [facility] Accession/Order Number: [id number] Exam Date: 02/25/2025 11:52 Report Date: 02/25/2025 11:54 At the request of: CARMEN RADER MD Procedure: XR knee RT 4V 4 views right knee CLINICAL HISTORY: m25.561 pain in right knee COMPARISON: None FINDINGS: Moderate severe medial compartment and patellofemoral compartmentdegenerative changes. Spurring greatest medial compartment and along thepatellofemoral marker. Suspect quadriceps tendon enthesopathy versus bulky spurring involving the superior margin of the patella. Small joint effusion. XR/XR knee RT 4V IMPRESSION: Moderate to severe degenerative changes greatest medial and patellofemoral compartment. Impression dictated by: Alberto Restrepo M.D. 02/25/2025 11:54 AM Dictation Location: [place] [address] Electronically authenticated by: [id number] Y Date: 1:54 Dictated By: Alberto Restrepo M.D. Signed By:02/25/25 1156 DD/ 1154 TD/TT: Personnel And Payroll Technician: Generic External Data Provider IMG XR PROCEDURES Final Result * XR pelvis 1 or 2 views (02/25/2025 11:52 AM EDT) Anatomical Region Laterality Modality Body, Pelvis Radiographic Christen ging 02/25/2025 11:5 2 AM EDT Narrative 02/25/2025 11:54 AM EDT [place] [id number] XRay Report Signed Patient: RIGOBERTO BEY MR#: [id number] : 1950 Acct:[id number] Age/Sex: 74 / F ADM Date: 02/25/25 Loc: RAD Attending Dr: Carmen [place] M.D. Ordering Physician: Carmen Rader Date of Service: 02/25/25 Procedure(s): XR pelvis 1-2V Accession Number(s): [id number] cc: NOAH BETHEA ; Carmen Rader The [address] [address] Patient Name: RIGOBERTO BEY MRN: [id number] date: 1950 Sex: F Assigned Patient Location: RAD Current Patient Location: RAD Accession/Order Number: [id number] Exam Date: 02/25/2025 11:50 Report Date: 02/25/2025 11:52 At the request of: CARMEN RADER MD Procedure: XR pelvis 1-2V AP PELVIS: CLINICAL HISTORY: m25.561 pain in right knee COMPARISON: None Mild right-sided moderate left-sided joint space narrowing hips. No fractures age. Mild spurring both sacral joints. No diastases of the sacroiliac joints or pubic symphysis. Question pelvic phleboliths degenerative changes lower spine. No fractures or dislocation. XR/XR pelvis 1-2V IMPRESSION: NO ACUTE BONY FINDINGS. [id number] DEGENERATIVE CHANGE. Impression dictated by: Alberto Restrepo M.D. 02/25/2025 11:52 AM Dictation Location: [place] [address] Electronically authenticated by: [id number] Y Date: 02/25/2025 11:52 Dictated By: Alberto Restrepo M.D. Signed By: 02/25/25 1154 DD/ 1152 TD/TT: Personnel And Payroll Technician: Procedure Note Radiology, Radiologist, MD - 02/25/[address] [address] XRay Report Signed Patient: RIGOBERTO BEY KMR#: [id number] : 1950Acct:[id number] Age/Sex: 74 / FADM Date: 02/25/25 Loc: RAD Attending Dr: Carmen Rader M.D. Ordering Physician: Carmen Rader Date of Service: 02/25/25 Procedure(s): XR pelvis 1-2V Accession Number(s): [id number] cc: NOAH BETHEA ; Carmen Rader The [place] [id number] Patient Name: RIGOBERTO BEY MRN: [id number] date: 1950 Sex: F Assigned Patient Location: RAD Current Patient Location: RAD Accession/Order Number: [id number] Exam Date: 02/25/2025 11:50 Report Date: 02/25/2025 11:52 At the request of: CARMEN RADER MD Procedure: XR pelvis 1-2V AP PELVIS: CLINICAL HISTORY: m25.561 pain in right knee COMPARISON: None Mild right-sided moderate left-sided joint space narrowing hips. Nofractures age. Mild spurring both sacral joints. No diastases of the sacroiliacjoints or pubic symphysis. Question pelvic phleboliths degenerative changeslower spine. No fractures or dislocation. XR/XR pelvis 1-2V IMPRESSION: NO ACUTE BONY FINDINGS. [id number] DEGENERATIVE CHANGE. Impression dictated by: Alberto Restrepo M.D. 02/25/2025 11:52 AM Dictation Location: [place] [address] Electronically authenticated by: [id number] Y Date: 1:52 Dictated By: Alberto Restrepo M.D. Signed By:02/25/25 1154 DD/ 1152 TD/TT: Personnel And Payroll Technician: Generic External Data Provider IMG XR PROCEDURES Final Result * MM TOMOSYNTHESIS SCREENING BI (03/26/2024 12:48 PM EDT) Anatomical Region Laterality Modality Other 03/26/2024 12:4 8 PM EDT Narrative 03/26/2024 12:48 [place] [address] Mammography Report Signed Patient: RIGOBERTO BEY MR#: [id number] : 1950 Acct:[id number] Age/Sex: 73 / F ADM Date: 03/26/24 Loc: MAMMO Attending Dr: NOAH BETHEA Ordering Physician: NOAH BETHEA Results: Date of Service: 03/26/24 Follow Up: Procedure(s): MM tomosynthesis screening BI Accession Number(s): [id number] cc: NOAH BETHEA Patient Name: RIGOBERTO BEY MR#: [id number] : 1950 Exam Date: 03/26/2024 Ordering Doctor: DR NOAH BETHEA M.D. RADIOLOGY REPORT PROCEDURE: MM TOMOSYNTHESIS [...] lung cancer at age 72. LOCATION: The [facility] BREAST COMPOSITION: There are scattered areas of [...] Signed By: 03/26/24 1248 DD/ 1248 TD/TT: Personnel And Payroll Technician: Procedure Note Radiology, Radiologist, - 03/26/2024 [place] [address] Mammography Report Signed Patient: RIGOBERTO BEY KMR#: [id number] : 1950Acct:[id number] Age/Sex: 73 / FADM Date: 03/26/24 Loc: MAMMO Attending Dr: NOAH BETHEA Ordering Physician: NOAH BETHEAResults: Date of Service: 03/26/24Follow Up: Procedure(s): MM tomosynthesis screening BI Accession Number(s): [id number] cc: DEJAMARYNOAH Patient Name: RIGOBERTO BEY MR#: [id number] : 1950 Exam Date: 03/26/2024 Ordering Doctor: DR NOAH BETHEA M.D. RADIOLOGY REPORT PROCEDURE: MM TOMOSYNTHESIS [...] lung cancer at age 72. LOCATION: The [facility] BREAST COMPOSITION: There are scattered areas of [...] M.D. Signed By:03/26/24 1248 DD/ 1248 TD/TT: Personnel And Payroll Technician: Noah Bethea MD [facility] Final Result * Colonoscopy (09/26/2018 12:00 PM EDT) Anatomical Region Laterality Modality Endoscopy 09/26/2018 12:0 0 PM EDT Narrative 09/26/2018 12:00 PM EDT PERFORMED AT [facility] LOCATION:[id number] divertic/polyp-tub adenoma repeat 5 years Procedure Note CONVERSION, GENERIC - 11/23/2022 PERFORMED AT [facility] LOCATION:[id number] divertic/polyp-tub adenoma repeat 5 years Noah Bethea MD ENDOSCOPY PROCEDURE ORDERABLES Final Result from Last 3 Months or Most Recently Relevant to Health Maintenance Insurance [employer] Care Teams Milling Machine Set Up Operator Relationship Specialty Start Date End Date Noah Bethea MD [address] [facility] [address] [place] [address] PCP - [facility] 07/10/17 Noah Bethea MD [address] [facility] [address] [place] [address] PCP - General Internal Medicine 01/17/23
--- OUTSIDE RECORDS SUMMARY | 2025-04-22 08:47 | XMS_ITS | Encounter Summary ---
Author Organization [facility] Address [address] [place] [address] Care Team Providers Care Metal Trim Erector Name Role Phone Noah Bethea MD Unavailable [phone] Noah Bethea MD Primary Care Provider [phone] Encounter Details Date Type Department Care Team (Late st Contact Info) Description 09/11/2024 Abstract [facility] [place] [facility] [address] [facility] [address] [place] [address] Noah Bethea MD [address] [place] [address] Social History Tobacco Use Types Packs/Day Years [...] Visit [facility] [place] Yadav [address] [facility] [address] [place] [address] Jessa Polanco PA [address] [facility] [address] [place] [address] documented as of this encounter Visit Diagnoses Not on filedocumented in this encounter Additional Health Concerns Assessment Noted Time PHQ-9 Depression Total Score: 0 11/01/19 24 8:00 AM EDT documented as of this encounter Care Teams Metal Trim Erector Relationship Specialty Start Date End Date Noah Bethea MD [address] [facility] [address] [place] [address] PCP - [employer] 07/10/17 Noah Bethea MD [address] [facility] [address] [place] [address] PCP - General Internal Medicine 01/17/23 documented as of this encounter
--- OUTSIDE RECORDS SUMMARY | 2025-04-22 08:47 | XMS_ITS | Encounter Summary ---
Author Organization [facility] Address [address] [place] [address] Care Team Providers Care Heddle Machine Operator Name Role Phone Noah Bethea MD Unavailable [phone] Noah Bethea MD Primary Care Provider [phone] Encounter Details Date Type Department Care Team (Late Contact Info) Description 02/25/2025 Abstract [facility] [place] Yadav [address] [place] [address] Noah Bethea MD [address] [place] [address] Social History Tobacco Use Types Packs/Day Years [...] [place] Yadav [address] [place] [address] Jessa Polanco PA [address] [place] [address] documented as of this encounter Visit Diagnoses Not on filedocumented in this encounter Additional Health Concerns Assessment Noted Time PHQ-9 Depression Total Score: 0 11/01/19 24 8:00 AM EDT documented as of this encounter Care Teams Heddle Machine Operator Relationship Specialty Start Date End Date Noah Bethea MD [address] [facility] 110 [place] [address] PCP - [employer] 07/10/17 Noah Bethea MD [address] [facility] [address] [place] [address] PCP - General Internal Medicine 01/17/23 documented as of this encounter
--- OUTSIDE RECORDS SUMMARY | 2025-04-22 08:47 | XMS_ITS | Encounter Summary ---
Author Organization [facility] Address [address] [place] [address] Care Team Providers Care Strapper And Buffer Name Role Phone Noah Bethea MD Unavailable [phone] Noah Bethea MD Primary Care Provider [phone] Encounter Details Date Type Department Care Team (Late st Contact Info) Description 09/11/2024 Abstract [facility] [place] [facility] [address] [facility] 110 [place] [phone] Noah Bethea MD [address] [place] [address] Social History Tobacco Use Types Packs/Day Years [...] [address] [facility] [address] [place] [address] Jessa Polanco PA [address] [facility] [address] [place] [address] documented as of this encounter Visit Diagnoses Not on filedocumented in this encounter Additional Health Concerns Assessment Noted Time PHQ-9 Depression Total Score: 0 11/01/19 24 8:00 AM EDT documented as of this encounter Care Teams Strapper And Buffer Relationship Specialty Start Date End Date Noah Bethea MD [address] [facility] [address] [place] [address] PCP - [employer] 07/10/17 Noah Bethea MD [address] [facility] [address] [place] [address] PCP - General Internal Medicine 01/17/23 documented as of this encounter
--- OUTSIDE RECORDS SUMMARY | 2025-04-22 08:47 | XMS_ITS | Encounter Summary ---
Author Organization [facility] Address [address] [place] [address] Care Team Providers Care Rental Car Porter Name Role Phone Maria De Jesus Bethea MD Unavailable [phone] Maria De Jesus Bethea MD Primary Care Provider [phone] Encounter Details Date Type Department Care Team (Late Contact Info) Description 03/26/2024 Clinisync Result Encounter NOMS External Department Unsolicited Maria De Jesus Bethea MD [address] [facility] 110 [place] [address] Social History Tobacco Use Types [...] 9:00 AM EDT Office Visit [facility] [place] Yadav [address] [facility] 110 [place] [address] Jessa Polanco PA [address] [facility] [address] [place], [place] [id number] documented as of this encounter Procedures Procedure Name Priority Date/Time Associated Diagnosis Comments MM TOMOSYNTHESIS SCREENING BI 03/26/2024 12:48 PM EDT documented in this encounter Results * MM TOMOSYNTHESIS SCREENING BI (03/26/2024 12:48 PM EDT) Anatomical Region Laterality Modality Other 03/26/2024 12:4 8 PM EDT Narrative 03/26/2024 12:48 [place] [address] Mammography Report Signed Patient: JENNIE BEY MR#: [id number] : 1950 Acct:[id number] Age/Sex: 73 / F ADM Date: 03/26/24 Loc: MAMMO Attending Dr: MARIA DE JESUS BETHEA Ordering Physician: MARIA DE JESUS BETHEA Results: Date of Service: 03/26/24 Follow Up: Procedure(s): MM tomosynthesis screening BI Accession Number(s): [id number] cc: MARIA DE JESUS BETHEA Patient Name: JENNIE BEY MR#: [id number] : 1950 Exam Date: 03/26/2024 Ordering Doctor: [...] lung cancer at age 72. LOCATION: The [facility] BREAST COMPOSITION: There are scattered areas [...] Signed By: 03/26/24 1248 DD/ 1248 TD/TT: Runway Model: Procedure Note Radiology, Radiologist, MD - 03/26/2024 [place] [address] Mammography Report Signed Patient: JENNIE BEY KMR#: [id number] : 1950Acct:[id number] Age/Sex: 73 / FADM Date: 03/26/24 Loc: MAMMO Attending Dr: MARIA DE JESUS BETHEA Ordering Physician: MARIA DE JESUS BETHEAResults: Date of Service: 03/26/24Follow Up: Procedure(s): MM tomosynthesis screening BI Accession Number(s): [id number] cc: MARIA DE JESUS BETHEA Patient Name: JENNIE BEY MR#: [id number] : 1950 Exam Date: 03/26/2024 Ordering Doctor: [...] lung cancer at age 72. LOCATION: The [facility] BREAST COMPOSITION: There are scattered areas [...] M.D. Signed By:03/26/24 1248 DD/ 1248 TD/TT: Runway Model: Maria De Jesus Bethea MD [facility] Final Result documented in this encounter Visit Diagnoses Not on filedocumented in this encounter Additional Health Concerns Assessment Noted Time PHQ-9 Depression Total Score: 0 11/01/19 24 8:00 AM EDT documented as of this encounter Care Teams Rental Car Porter Relationship Specialty Start Date End Date Maria De Jesus Bethea MD 112 [facility] 110 [place] [address] PCP - [employer] 07/10/17 Maria De Jesus Bethea MD [address] [facility] 110 [place] [address] PCP - General Internal Medicine 01/17/23 documented as of this encounter
--- OUTSIDE RECORDS SUMMARY | 2025-04-22 08:47 | XMS_ITS | Encounter Summary ---
Author Organization [facility] Address [address] [place] [address] Care Team Providers Care Network Support Name Role Phone Maria De Jesus Bethea MD Unavailable [phone] Maria De Jesus Bethea MD Primary Care Provider [phone] Encounter Details Date Type Department Care Team (Late Contact Info) Description 03/15/2023 Clinisync Result Encounter [facility] Department Unsolicited Maria De Jesus Bethea MD [address] [facility] [address] [place] [address] Social History Tobacco Use Types [...] Pee Yadav [address] [place] [id number] Jessa Polanco PA [address] [place], [place] [id number] documented as of this encounter Procedures Procedure Name Priority Date/Time Associated Diagnosis Comments JORDYN 03/15/2023 11:32 AM EDT documented in this encounter Results * TOMOSBI (03/15/2023 11:32 AM EDT) Anatomical Region Laterality Modality Other 03/15/2023 11:3 2 AM EDT Narrative 03/15/2023 11:32 AM EDT The [address] [address] Mammography Report Signed Patient: JENNIE BEY MR#: [id number] : 1950 Acct:[id number] Age/Sex: 72 / F ADM Date: 03/15/23 Loc: MAMMO Attending Dr: MARIA DE JESUS BETHEA Ordering Physician: MARIA DE JESUS BETHEA Results: Date of Service: 03/15/23 Follow Up: Procedure(s): MM tomosynthesis screening BI Accession Number(s): [id number] cc: MARIA DE JESUS BETHEA Patient: JENNIE BEY Exam Date: 03/15/2023 : 1950 Gender:F Ordering : DR MARIA DE JESUS BETHEA M.D. Admission #: [id number] Family : Order #: [id number] CLICK HERE TO VIEW EXAM RADIOLOGY REPORT [...] lung cancer at age 72. LOCATION: The [facility] BREAST COMPOSITION: Scattered areas fibroglandular density. [...] Shankar M.D. Signed By: 03/15/23 1133 DD/ 113 TD/TT: Aluminum Siding Applicator: Procedure Note Radiology, Radiologist, - 03/31/2023 [place] [address] Mammography Report Signed Patient: JENNIE BEY KMR#: [id number] : 1950Acct:[id number] Age/Sex: 72 / FADM Date: 03/15/23 Loc: MAMMO Attending Dr: MARIA DE JESUS BETHEA Ordering Physician: Nahomy BETHEAults: Date of Service: 03/15/23Follow Up: Procedure(s): MM tomosynthesis screening BI Accession Number(s): [id number] cc: MARIA DE JESUS BETHEA Patient: JENNIE BEY Exam Date: 03/15/2023 : 1950 Gender:F Ordering : DR MARIA DE JESUS BETHEA M.D. Admission #: [id number] Family : Order #: [id number] CLICK HERE TO VIEW EXAM RADIOLOGY REPORT [...] lung cancer at age 72. LOCATION: The [facility] BREAST COMPOSITION: Scattered areas fibroglandular density. [...] M.D. Signed By:03/15/23 1133 DD/ 1132 TD/TT: Aluminum Siding Applicator: us Maria De Jesus Bethea MD [facility] Final Result documented in this encounter Visit Diagnoses Not on filedocumented in this encounter Care Teams Network Support Relationship Specialty Start Date End Date Maria De Jesus Bethea MD [address] [facility] [address] [place] [address] PCP - [employer] 07/10/17 Maria De Jesus Bethea MD [address] [facility] [address] [place] [address] PCP - General Internal Medicine 01/17/23 documented as of this encounter
--- OUTSIDE RECORDS SUMMARY | 2025-04-22 08:49 | XMS_ITS | CCD ---
Author Organization [facility] Care Team Providers Care Carbonation Tester Name Role Phone Gerri Sanchez Unavailable DR NOAH BETHEA Attending Unavailable DEJA, DR PRETTY Consulting Unavailable DR NOAH BETHEA Admitting Unavailable OLU GUZMAN Primary Care Unavailable DR ISAIAS WHALEN V Consulting Unavailable OLU GUZMAN Attending Unavailable OLU GUZMAN Consulting Unavailable MEGAN OLU KATHY Primary Care Unavailable OLU GUZMAN Admitting Unavailable MEGAN OLUSHIREEN CHAVEZ Admitting Unavailable OLU GUZMAN Attending Unavailable DR RIVER RUSHING Consulting Unavailable MEGAN OLU KATHY Primary Care Unavailable MEGAN OLU KATHY Consulting Unavailable Cassandra De La Rosa Unavailable Noah Bethea MD Unavailable Noah Bethea MD Primary Care Provider Carmen Torres MD Attending Provider Noah Bethea II Primary Care Provider [phone] NOAH BETHEA Attending Unavailable PO CHA Attending Unavailable GRACE BEAN Attending Unavailable PO CHA Referring Unavailable PO CHA Attending Unavailable JESSA MAYS Attending Unavailable Allergies Allergy Classification Reported Allergen(s) Allergy Type Date of Onset Reaction(s) Facility (2 sources) meloxicam Drug Allergy 04-02-2025 Other [facility] Medications Current Medications Medication Drug Class(es) Dates Sig (Normalized) Sig (Original) [id number] 60 actuat albuterol 0.09 mg/actuat metered dose inhaler (1 source) beta2-Adrenergic Agonist Start: 07-09-2023 take 2 puff(s) by inhalation every four to six hours as needed Albuterol Sulfate HFA 108 (90 Base) MCG/ACT 2 puffs as needed Inhalation every 4-6 hours for 14 days Jun, Active amLODIPine 5 mg oral tablet (20 sources) Dihydropyridine Calcium Channel Dana Start: 01-23-2024 [...] daily Active atenolol 25 mg oral tablet (20 sources) beta-Adrenergic Dana Start: 12-23-2024 take 1 [...] 06/21/2024 Active cholecalciferol 0.05 mg oral capsule (20 sources) Vitamin D take 1 capsule by mouth in the morning cholecalciferol (Vitamin D-3) 50 MCG (1999 UT) capsule Take 1 capsule by mouth in the morning. Active diclofenac sodium 0.01 mg/mg topical gel (3 sources) Nonsteroidal Anti-inflammatory Drug Start: 03-23-2025 diclofenac sodium 1 % gel Apply 4 g topically 4 (four) times a day as needed 03/23/2025 Active green tea extract 315 mg oral capsule (2 sources) take 315 mg by mouth once daily Green Tea (Laina sinensis) 315 MG as directed Orally daily Active levothyroxine sodium 0.1 mg oral tablet (20 sources) l-Thyroxine Start: 01-17-2025 take 1 tablet [...] Active magnesium oxide 400 mg oral tablet (20 sources) take 1 tablet by mouth in the morning magnesium oxide (Mag-Ox) 400 MG tablet Take 400 mg by mouth in the morning. Active meloxicam 15 mg oral tablet (3 sources) Nonsteroidal Anti-inflammatory Drug Start : 03-24 End: 04-02 take 1 tablet by mouth once daily meloxicam (Mobic) 15 MG tablet Take 15 mg by mouth Daily 03/24/2025 04/02/2025 Discontinued (Ineffective) methylPREDNISolone (3 sources) Corticosteroid Start : 06-11 End: 06-18 methylPREDNISolone (Medrol Dospak) 4 MG tablets Indications: Acute non-recurrent pansinusitis Follow schedule on package instructions 21 tablet 06/11/2024 06/18/2024 Active Start: 07-09-2023 methylPREDNISo lone 4 MG as directed Orally for 6 Jun, Active Multiple Vitamins-Minerals (OCUVITE ADULT 50+ PO) (20 sources) Multiple Vitamin s-Minerals (OCUVITE ADULT 50+ [...] acute or chronic Episodic Diverticulosis and diverticulitis (20 sources) Diverticular disease; Translations: [Diverticulosis of intestine, part unspecified, without perforation or abscess without bleeding] Onset: 3 01-16-2023 Chronic Essential hypertension (20 sources) Essential (primary) hypertension; Translations: [Essential hypertension] Onset: 1 01-16-2023 Chronic Menopausal disorders (20 sources) Other primary ovarian failure; Translations: [Decreased [...] Episodic Other nutritional; endocrine; and metabolic disorders (16 sources) Obesity; Translations: [Obesity (BMI 30.0-34.9)] Onset: 5 09-11-2024 Chronic Other screening for suspected conditions (not mental disorders or infectious disease) (8 sources) Encounter for screening mammogram for malignant neoplasm of breast; Translations: [Patient encounter status] Onset: 2 Episodic Other skin disorders (2 sources) Alopecia; Translations: [Hair loss] Episodic Other upper respiratory infections (2 sources) Acute pansinusitis; Translations: [Acute pansinusitis, unspecified] 06-11-2024 Episodic Residual codes; unclassified (1 source) Family history of malignant neoplasm of trachea, bronchus and lung; Translations: [FAM HX MALIG NEOPLSM TRACH BRON LNG] Onset: 2 Episodic Thyroid disorders (20 sources) Renan thyroiditis; 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 Unclassified (3 sources) Unspecified lump in the left breast, overlapping quadrants; Translations: [UNS LUMP LT BREAST OVRLPNG QUADRNTS] Onset: 1 Past or Other Problems Problem Classification Problem Date Documented Date Episodic/Chronic Hemorrhoids (20 sources) Internal hemorrhoids; Translations: [Other hemorrhoids] Onset: 01-16-2023 01-16-2023 Episodic Mood disorders (20 sources) Mood disorders Onset: 11-01-2023 11-01-2023 Nonmalignant breast conditions (1 source) Solitary cyst of left breast; Translations: [SOLITARY CYST OF LEFT BREAST] Onset: 04-12-2021 Episodic Unclassified (1 source) Acute cough R05.1 Viral infection (1 source) Zoster without complications Onset: 06-04-2021 Resolved: 06-04-2021 Episodic Results Test Name Value Interpretation Reference Range Facility XR Knee - right 4 [facility] [place] [id number] XRay Report Signed Patient: RIGOBERTO BARRIOS MR#: [id number] : 1950 Acct:[id number] Age/Sex: 74 / F ADM Date: 02/25/25 Loc: RAD Attending Dr: Carmen Torres M.D. Ordering Physician: Carmen Torres Date of Service: 02/25/25 Procedure(s): XR knee RT 4V Accession Number(s): [id number] cc: NOAH BETHEA ; Carmen Torres [address] [address] Patient Name: RIGOBERTO BARRIOS MRN: [id number] date: 1950 Sex: F Assigned Patient Location: [facility] Current Patient Location: RAD Accession/Order Number: [id number] Exam Date: 02/25/2025 11:52 Report Date: 02/25/2025 [...] Restrepo M.D. 02/25/2025 11:54 AM Dictation Location: [place] [address] Electronically authenticated by: [id number] Date: 02/25/2025 11:54 Dictated By: Alberto Restrepo M.D. Signed By: 02/25/25 1156 DD/ 1154 TD/TT: Dental Specialist: [facility] Radiology, Radiologist, - 02/25/2025 [place] [address] XRay Report Signed Patient: RIGOBERTO BARRIOS MR#: [id number] : 1950 Acct:[id number] Age/Sex: 74 / F ADM Date: 02/25/25 Loc: RAD Attending Dr: Carmen Torres M.D. Ordering Physician: Carmen Torres Date of Service: 02/25/25 Procedure(s): XR knee RT 4V Accession Number(s): [id number] cc: NOAH BETHEA ; Carmen Torres [place] [id number] Patient Name: RIGOBERTO BARRIOS MRN: [facility]:[id number] date: 1950 Sex: F Assigned Patient Location: [facility] Current Patient Location: [facility] Accession/Order Number: [id number] Exam Date: 02/25/2025 11:52 Report Date: 02/25/2025 [...] Restrepo M.D. 02/25/2025 11:54 AM Dictation Location: [place] [address] Electronically authenticated by: [id number] Y Date: 02/25/2025 11:54 Dictated By: Alberto Restrepo M.D. Signed By: 02/25/25 1156 DD/ 1154 TD/TT: Dental Specialist: [facility] [employer] Radiology Study observation (narrative) [facility] [employer] XR Knee - right 4 ViewsOrder ed By: Radiologist Radiology on 02-25-2025 [facility] [employer] Work Phone: XR Pelvis 1 or [address] [place] [address] XRay Report Signed Patient: RIGOBERTO BARRIOS MR#: [id number] : 1950 Acct:[id number] Age/Sex: 74 / F ADM Date: 02/25/25 Loc: RAD Attending Dr: Carmen Torres M.D. Ordering Physician: Carmen Torres Date of Service: 02/25/25 Procedure(s): XR pelvis 1-2V Accession Number(s): [id number] cc: NOAH BETHEA ; Carmen Torres [place] [id number] Patient Name: RIGOBERTO BARRIOS MRN: [id number] date: 1950 Sex: F Assigned Patient Location: [facility] Current Patient Location: [facility] Accession/Order Number: [id number] Exam Date: 02/25/2025 11:50 Report Date: 02/25/2025 [...] pelvis 1-2V IMPRESSION: NO ACUTE BONY FINDINGS. [id number]-XL-UFUYARIX DEGENERATIVE CHANGE. Impression dictated by: Alberto Restrepo M.D. 02/25/2025 11:52 AM Dictation Location: [place] [address] Electronically authenticated by: [id number] Y Date: 02/25/2025 11:52 Dictated By: Alberto Restrepo M.D. Signed By: 02/25/25 1154 DD/ 1152 TD/TT: Dental Specialist: [facility] Radiology, Radiologist, MD - 02/25/2025 [place] [address] XRay Report Signed Patient: RIGOBERTO BARRIOS MR#: [id number] : 1950 Acct:[id number] Age/Sex: 74 / F ADM Date: 02/25/25 Loc: [facility] Attending Dr: Carmen Torres M.D. Ordering Physician: Carmen Torres Date of Service: 02/25/25 Procedure(s): XR pelvis 1-2V Accession Number(s): [id number] cc: NOAH BETHEA ; Carmen Torres [place] [id number] Patient Name: RIGOBERTO BARRIOS MRN: [facility]:[id number] date: 1950 Sex: F Assigned Patient Location: [facility] Current Patient Location: [facility] Accession/Order Number: [id number] Exam Date: 02/25/2025 11:50 Report Date: 02/25/2025 [...] pelvis 1-2V IMPRESSION: NO ACUTE BONY FINDINGS. [id number] DEGENERATIVE CHANGE. Impression dictated by: Alberto Restrepo M.D. 02/25/2025 11:52 AM Dictation Location: [place] [address] Electronically authenticated by: [id number] Y Date: 02/25/2025 11:52 Dictated By: Alberto Restrepo M.D. Signed By: 02/25/25 1154 DD/ 1152 TD/TT: Dental Specialist: [facility] [employer] Radiology Study observation (narrative) [facility] Pelvis 1 or 2 ViewsOrdere d By: Radiologist Radiology on 02-25-2025 [employer] Work Phone: XR Foot - left 3 [facility] Result: Notable left great toe hallux rigidus and degenerative changes to the 1st MPJ with notable tailor's bunion and 5th digital deformity and metatarsus adductus [facility] [id number] e Radiology Study observation (narrative) [facility] [employer] CBC (INCLUDES DIFF/PLT)on Basophils (Bld) [#/Vol] 0.039 10*3/uL Normal 0-200 [facility] Comment on above: Performed By: #### 6 399, 7600, 21560 #### [facility] [place] [address] Coating Mixer Supervisor: John Crooks MD Basophils/100 WBC (Bld) 0.6 % Normal [facility] Comment on above: Performed By: #### 6 399, 7600, 20166 #### [facility] [place] [address] [employer] Supervisor: John Crooks MD Eosinophils (Bld) [#/Vol] 0.143 10*3/uL Normal 15-500 [facility] Comment on above: Performed By: #### 6 399, 7600, 08603 #### [facility] [place] [address] [employer] Supervisor: John Crooks MD Eosinophils/100 WBC (Bld) 2.2 % Normal [facility] Comment on above: Performed By: #### 6 399, 7600, 69913 #### [facility] [address], [address] [place] [address] [employer] Supervisor: John Crooks MD Erythrocyte distribution width (RBC) [Ratio] 13.0 % Normal 11.0-15.0 [facility] Comment on above: Performed By: #### 6 399, 7600, 75246 #### [facility] of [address], [address] [place] [address] [employer] Supervisor: John Crooks MD Hematocrit (Bld) [Volume fraction] 40.9 % Normal 35.0-45.0 [facility] Comment on above: Performed By: #### 6 399, 7600, 00568 #### [facility] of [address], [address] [place] [address] [employer] Supervisor: John Crooks MD Hemoglobin (Bld) [Mass/Vol] 13.5 g/dL Normal 11.7-15.5 [facility] Comment on above: Performed By: #### 6 399, 7600, 55158 #### [facility] of [address], [address] [place] [address] [employer] Supervisor: John Crooks MD Lymphocytes (Bld) [#/Vol] 1.814 10*3/uL Normal 850-3900 [facility] Comment on above: Performed By: #### 6 399, 7600, 36821 #### [facility] of [place] [address] [employer] Supervisor: John Crooks MD Lymphocytes/100 WBC (Bld) 27.9 % Normal [facility] Comment on above: Performed By: #### 6 399, 7600, 37123 #### [facility] of [address], [address] [place] [address] [employer] Supervisor: John Crooks MD MCH (RBC) [Entitic mass] 30.1 pg Normal 27.0-33.0 [facility] Comment on above: Performed By: #### 6 399, 7600, 21014 #### [facility] of [place] [address] [place] [address] Coating [employer] Supervisor: John Crooks MD MCHC (RBC) [Mass/Vol] [...] condition. Performed By: #### 6 399, 7600, 39789 #### [facility] [place] [address] [employer] Supervisor: John Crooks MD MCV (RBC) [Entitic vol] 91.1 fL Normal 80.0-100.0 [facility] Comment on above: Performed By: #### 6 399, 7600, 62901 #### [facility] [place] [address] [employer] Supervisor: John Crooks MD Monocytes (Bld) [#/Vol] 0.65 10*3/uL Normal 200-950 [facility] Comment on above: Performed By: #### 6 399, 7600, 96920 #### [facility] [place] [address] [employer] Supervisor: John Crooks MD Monocytes/100 WBC (Bld) 10.0 % Normal [facility] Comment on above: Performed By: #### 6 399, 7600, 48410 #### [facility] [place] [address] [employer] Supervisor: John Crooks MD Neutrophils (Bld) [#/Vol] 3.855 10*3/uL Normal 1171-0623 [facility] Comment on above: Performed By: #### 6 399, 7600, 84941 #### [facility] [place] [address] [employer] Supervisor: John Crooks MD Neutrophils/100 WBC (Bld) 59.3 % Normal [facility] Comment on above: Performed By: #### 6 399, 7600, 16023 #### [facility] of [place] [address] [employer] Supervisor: John Crooks MD Platelet mean volume (Bld) [Entitic vol] 10.5 fL Normal 7.5-12.5 [facility] Comment on above: Performed By: #### 6 399, 7600, 67935 #### [facility] of [place] [address] [employer] Supervisor: John Crooks MD Platelets (Bld) [#/Vol] 343 10*3/uL Normal 140-400 [facility] Comment on above: Performed By: #### 6 399, 7600, 85516 #### [facility] of [place] [address] [employer] Supervisor: John Crooks MD RBC (Bld) [#/Vol] 4.49 10*6/uL Normal 3.80-5.10 [facility] Comment on above: Performed By: #### 6 399, 7600, 27271 #### [facility] of [place] [address] [employer] Supervisor: John Crooks MD WBC (Bld) [#/Vol] 6.5 10*3/uL Normal 3.8-10.8 [facility] Comment on above: Performed By: #### 6 399, 7600, 58494 #### [facility] of [place] [address] [employer] Supervisor: John Crooks MD COMPREHENSIVE METABOLIC PANE [facility] 09-12-2024 Albumin [Mass/Vol] 4.3 g/dL Normal 3.6-5.1 [facility] Comment on above: Performed By: #### 6 399, 7600, 19595 #### [facility] of [place] [address] [employer] Supervisor: John Crooks MD Albumin/Globulin [Mass ratio] 1.4 {ratio} Normal 1.0-2.5 [facility] Comment on above: Performed By: #### 6 399, 7600, 64616 #### [facility] of [address], [address] [place] [address] [employer] Supervisor: John Crooks MD ALP [Catalytic activity/Vol] 89 U/L Normal 37-153 [facility] Comment on above: Performed By: #### 6 399, 7600, 53070 #### [facility] of [address], [address] [place] [address] [employer] Supervisor: John Crooks MD ALT [Catalytic activity/Vol] 10 U/L Normal 6-29 [facility] Comment on above: Performed By: #### 6 399, 7600, 22022 #### [facility] of [address], [address] [place] [address] [employer] Supervisor: John Crooks MD AST [Catalytic activity/Vol] 17 U/L Normal 10-35 [facility] Comment on above: Performed By: #### 6 399, 7600, 61275 #### [facility] of [address], [address] [place] [address] [employer] Supervisor: John Crooks MD Bilirubin [Mass/Vol] 1.1 mg/dL Normal 0.2-1.2 [facility] Comment on above: Performed By: #### 6 399, 7600, 73942 #### [facility] of [address], [address] [place] [address] [employer] Supervisor: John Crooks MD BUN/CREATININE RATIO SEE NOTE: Normal 6-22 [facility] Comment on above: Result Comment: Not Reported: BUN and Creatinine are within reference range. Performed By: #### 6 399, 7600, 94568 #### [facility] of [address], [address] [place] [address] [employer] Supervisor: John Crooks MD Calcium [Mass/Vol] 9.5 mg/dL Normal 8.6-10.4 [facility] Comment on above: Performed By: #### 6 399, 7600, 21846 #### [facility] of [address], [address] [place] [address] [employer] Supervisor: John Crooks MD Chloride [Moles/Vol] 104 mmol/L Normal 98-110 [facility] Comment on above: Performed By: #### 6 399, 7600, 60882 #### [facility] [address], [address] [place] [address] [employer] Supervisor: John Crooks MD CO2 [Moles/Vol] 29 mmol/L Normal 20-32 [facility] Comment on above: Performed By: #### 6 399, 7600, 82830 #### [facility] [address], [address] [place] [address] [employer] Supervisor: John Crooks MD Creatinine [Mass/Vol] 0.63 mg/dL Normal 0.60-1.00 [facility] Comment on above: Performed By: #### 6 399, 7600, 05669 #### [facility] [place] [address] [employer] Supervisor: John Crooks MD GFR/1.73 sq M.predicted among non-blacks MDRD (S/P/Bld) [Vol rate/Area] 93 mL/min/{1.73_m2} Normal > [place] = 60 [facility] Comment on above: Performed By: #### 6 399, 7600, 78146 #### [facility] [place] [address] [employer] Supervisor: John Crooks MD Globulin (S) [Mass/Vol] 3.0 g/dL Normal 1.9-3.7 [facility] Comment on above: Performed By: #### 6 399, 7600, 05543 #### [facility] [place] [address] [employer] Supervisor: John Crooks MD Glucose [Mass/Vol] 98 mg/dL Normal 65-99 [facility] Comment on above: Result Comment: Fasting reference interval Performed By: #### 6 399, 7600, 23499 #### [facility] of [address], [address] [place] [address] [employer] Supervisor: John Crooks MD Potassium [Moles/Vol] 5.2 mmol/L Normal 3.5-5.3 [facility] Comment on above: Performed By: #### 6 399, 7600, 55514 #### [facility] of [address], [address] [place] [address] [employer] Supervisor: John Crooks MD Protein [Mass/Vol] 7.3 g/dL Normal 6.1-8.1 [facility] Comment on above: Performed By: #### 6 399, 7600, 42143 #### [facility] of [address], [address] [place] [address] [employer] Supervisor: John Crooks MD Sodium [Moles/Vol] 139 mmol/L Normal 135-146 [facility] Comment on above: Performed By: #### 6 399, 7600, 08806 #### [facility] of [address], [address] [place] [address] [employer] Supervisor: John Crooks MD Urea nitrogen [Mass/Vol] 16 mg/dL Normal 7-25 [facility] Comment on above: Performed By: #### 6 399, 7600, 69010 #### [facility] [place] [address] [employer] Supervisor: John Crooks MD LIPID PANEL, [facility] [place] 0 Cholesterol [Mass/Vol] 219 mg/dL High <200 [facility] Comment on above: Order Comment: FASTI NG:YES FASTING: YES Performed By: #### 6 399, 7600, 46662 #### [facility] of [address], [address] [place] [address] [employer] Supervisor: John Crooks MD Cholesterol in HDL [Mass/Vol] 67 mg/dL Normal > [place] = 50 [facility] Comment on above: Order Comment: FASTI NG:YES FASTING: YES Performed By: #### 6 399, 7600, 50769 #### [facility] of [place] [address] [employer] Supervisor: John Crooks MD Cholesterol in LDL [...] equation in the estimation of LDL-C. Spenser SS et al. ARELY. 2013;310(19): 2669-6733 (http://education.[employer]/faq/UWW237) Performed By: #### 6 399, 7600, 60820 #### [facility] [address], [address] [place] [address] [employer] Supervisor: John Crooks MD Cholesterol.total/C holesterol in HDL [Mass ratio] 3.3 {ratio} Normal <5.0 [facility] Comment on above: Order Comment: FASTI NG:YES FASTING: YES Performed By: #### 6 399, 7600, 24438 #### [facility] [place] [address] [employer] Supervisor: John Crooks MD NON HDL CHOLESTEROL 152 mg/dL (calc) High <130 [facility] Comment on above: Order Comment: FASTI NG:YES FASTING: YES Result Comment: For patients with diabetes plus 1 major ASCVD risk factor, treating to a non-HDL-C goal of <100 mg/dL (LDL-C of <70 mg/dL) is considered a therapeutic option. Performed By: #### 6 399, 7600, 10291 #### [facility] [address], [address] [place] [address] [employer] Supervisor: John Crooks MD Triglyceride [Mass/Vol] 95 mg/dL Normal <150 [facility] Comment on above: Order Comment: FASTI NG:YES FASTING: YES Performed By: #### 6 399, 7600, 89892 #### [facility] [address], [address] [place] [address] [employer] Supervisor: John Crooks MD TSH W/REFLEX TO FT4on 2024 TSH W/REFLEX TO FT4 3.58 mIU/L Normal 0.40-4.50 [facility] Comment on above: Performed By: #### 6 399, 0240, 96971 #### [facility] [address], [address] [place] [address] [employer] Supervisor: John Crooks MD COVID + FLU Quick Testingon 07-09-2023 SARS-CoV-2 (COVID-19) RNA ALLEN+probe Ql (Unsp spec) Negative [employer] Other COVID + FLU Quick Testing Negative [employer] Other MG MAMM SCREEN 3D OWEN CADon 01-05-2022 MG MAMM SCREEN 3D OWEN CAD Patient: RIGOBERTO BARRIOS Exam Date: 01/05/2022 : 1950 Gender:F Ordering : DR NOAH BETHEA M.D. Admission #: [id number] Family : Order #: [id number] CLICK HERE TO VIEW EXAM RADIOLOGY REPORT [...] lung cancer at age 72. LOCATION: [facility] BREAST COMPOSITION: Scattered areas fibroglandular density. [...] Whalen MD on 01/05/2022 at 12:12 Normal [facility] XR DEXA BONE DENSITYon 01-05 XR [...] by: ISAIAS WHALEN Date: 2022-01-05 16:52 Normal [facility] MG MAMM DX 3D LT CADon 03-26 MG MAMM DX 3D LT CAD Patient: RIGOBERTO BARRIOS Exam Date: 03/26/2021 : 1950 Gender:F Ordering : DR. OLU GUZMAN . Admission #: [id number] Family : Order #: [id number] CLICK HERE TO VIEW EXAM RADIOLOGY REPORT [...] lung cancer at age 72. LOCATION: [facility] BREAST COMPOSITION: Scattered areas fibroglandular density. [...] M.D. on 03/26/2021 at 11:31 Normal [facility] US BREAST LEFT LIMITEDon US BREAST LEFT LIMITED Patient: RIGOBERTO BARRIOS Exam Date: 03/26/2021 : 1950 Gender:F Ordering : DR. OLU GUZMAN . Admission #: [id number] Family : Order #: [id number] CLICK HERE TO VIEW EXAM RADIOLOGY REPORT [...] lung cancer at age 72. LOCATION: [facility] BREAST COMPOSITION: Scattered areas fibroglandular density. [...] Rushing M.D. on 03/26/2021 at 11:31 Normal [facility] CBC AUTO DIFFon 03-23-2021 BASO # 0.1 103/ul Normal 0.0-0.1 [facility] Comment on above: Performed By: #### C BC #### [facility] [address] [place] [address] Yazmin Jessa Basophils/100 WBC (Bld) 0.7 % Normal 0.2-2.0 [facility] Comment on above: Performed By: #### C BC #### [facility] [address] [place] [address] Yazmin Jessa EO # 0.2 103/ul Normal 0.0-0.7 [facility] Comment on above: Performed By: #### C BC #### [facility] [address] [address] [place], [place] [id number] Yazmin Jessa Eosinophils/100 WBC (Bld) 3.3 % Normal 0.9-7.0 [facility] Comment on above: Performed By: #### C BC #### [facility] [address] [place] [address] Yazmin Jessa Erythrocyte distribution width (RBC) [Ratio] 13.2 % Normal 11.0-15.0 [facility] Comment on above: Performed By: #### C BC #### [facility] [address] [place] [address] Yazmin Jessa Hematocrit (Bld) [Volume fraction] 40.8 % Normal 36.0-48.0 [facility] Comment on above: Performed By: #### C BC #### [facility] [address] [place] [address] Yazmin Jessa Hemoglobin (Bld) [Mass/Vol] 13.4 g/dL Normal 12.0-16.0 [facility] Comment on above: Performed By: #### C BC #### [facility] [address] [place] [address] Yazmin Jessa IG # 0.01 10e3/ul Normal 0.00-0.03 [facility] Comment on above: Performed By: #### C BC #### [facility] [address] [place] [address] Yazmin Jessa IG % 0.1 % Normal 0.0-0.5 [facility] Comment on above: Performed By: #### C BC #### [facility] [address] [place] [address] Yazmin Jessa LYMPH # 2.0 103/ul Normal 1.2-3.8 [facility] Comment on above: Performed By: #### C BC #### [facility] [address] [place], [place] [id number] Yazmin Jessa Lymphocytes/100 WBC (Bld) 30.2 % Normal 20.5-60.0 [facility] Comment on above: Performed By: #### C BC #### [facility] [address] [place], [place] [id number] Yazminvera Germain MANUAL DIFF REQ NO Normal [facility] Comment on above: Performed By: #### C BC #### [facility] [address] [place], [place] [id number] Yazmin Jessa MCH (RBC) [Entitic mass] 30.5 pg Normal 26.7-34.0 [facility] Comment on above: Performed By: #### C BC #### [facility] [address] [place] [address] Yazminvera Germain MCHC (RBC) [Mass/Vol] 32.8 g/dL Normal 29.9-35.2 [facility] Comment on above: Performed By: #### C BC #### [facility] [address] [place] [address] Yazminvera Germain MCV (RBC) [Entitic vol] 92.9 fL Normal 81.0-99.0 [facility] Comment on above: Performed By: #### C BC #### [facility] [address] [place] [address] Yazmin Jessa MONO # 0.7 103/ul Normal 0.3-0.8 [facility] Comment on above: Performed By: #### C BC #### [facility] [address] [place] [address] Yazmin Jessa Monocytes/100 WBC (Bld) 10.1 % Normal 1.7-12.0 [facility] Comment on above: Performed By: #### C BC #### [facility] [address] [place] [address] Yazmin Jessa NEUT # 3.8 103/ul Normal 1.4-6.5 [facility] Comment on above: Performed By: #### C BC #### [facility] [address] [place], [place] [id number] Yazmin Jessa Neutrophils/100 WBC (Bld) 55.6 % Normal 43.0-75.0 [facility] Comment on above: Performed By: #### C BC #### [facility] [address] [place], [place] [id number] Yazminvera Bradleyen Platelet mean volume (Bld) [Entitic vol] 9.7 fL Normal 9.5-13.5 [facility] Comment on above: Performed By: #### C BC #### [facility] [address] [place], [place] [id number] Yazmin Jessa PLT 292 103/ul Normal 150-450 [facility] Comment on above: Performed By: #### C BC #### [facility] [address] [place], [place] [id number] Yazmin Jessa RBC 4.39 106/ul Normal 4.20-5.40 [facility] Comment on above: Performed By: #### C BC #### [facility] [address] [place] [address] Yazmin Jessa WBC 6.8 103/ul Normal 4.0-11.0 [facility] Comment on above: Performed By: #### C BC #### [facility] [address] [place], [place] [id number] Yazmin Germain PROF 14(COMP METB)on 021 Albumin [Mass/Vol] 3.9 g/dL Normal 3.5-5.0 [facility] Comment on above: Performed By: #### T MARY ANN, CMP #### [facility] [address] [place], [place] [id number] Yazmin Jessa Albumin/Globulin [Mass ratio] 1.0 {ratio} Normal [facility] Comment on above: Performed By: #### T MARY ANN, CMP #### [facility] [address] [place], [place] [id number] Yazmin Jessa ALP [Catalytic activity/Vol] 97 U/L Normal 38-126 [facility] Comment on above: Performed By: #### T MARY ANN, CMP #### [facility] [address] [place], [place] [id number] Yazmin Jessa ALT [Catalytic activity/Vol] 25 U/L Normal 9-52 [facility] Comment on above: Performed By: #### T MARY ANN, CMP #### [facility] [address] [place], [place] [address] Yazmin Jessa Anion gap [Moles/Vol] 12.3 mmol/L Normal [facility] Comment on above: Performed By: #### T SH, CMP #### [facility] [address] [place], [place] [address] Yazmin Jessa AST [Catalytic activity/Vol] 21 U/L Normal 14-36 [facility] Comment on above: Performed By: #### T MARY ANN, CMP #### [facility] [address] [place], [place] [address] Yazmin Jessa Bilirubin [Mass/Vol] 1.2 mg/dL Normal 0.2-1.3 [facility] Comment on above: Performed By: #### T MARY ANN, CMP #### [facility] [address] [place] [id number] Yazmin Jessa Calcium [Mass/Vol] 9.2 mg/dL Normal 8.4-10.2 [facility] Comment on above: Performed By: #### T MARY ANN, CMP #### [facility] [address] [place] [id number] Yazmin Jessa Chloride [Moles/Vol] 105 mmol/L Normal 98-107 [facility] Comment on above: Performed By: #### T MARY ANN, CMP #### [facility] [address] [place] [id number] Yazmin Jessa CO2 [Moles/Vol] 27.5 mmol/L Normal 22.0-30.0 [facility] Comment on above: Performed By: #### T MARY ANN, CMP #### [facility] [address] [place] [id number] Yazmin Jessa Creatinine [Mass/Vol] 0.81 mg/dL Normal 0.52-1.04 [facility] Comment on above: Performed By: #### T MARY ANN, CMP #### [facility] [address] [place] [id number] Yazmin Jessa EGFR-AF NAMIBIAN >60 Normal >=60 [facility] Comment on above: Performed By: #### T MARY ANN, CMP #### [facility] [address] [place], [place] [address] Yazmin Jessa EGFR-NON AF NAMIBIAN >60 Normal >=60 [facility] Comment on above: Performed By: #### T SH, CMP #### [facility] [address] [place], [place] [address] Yazmin Jessa Globulin (S) [Mass/Vol] 3.8 g/dL Normal [facility] Comment on above: Performed By: #### T SH, CMP #### [facility] [address] [place] [address] Yazmin Jessa Glucose [Mass/Vol] 98 mg/dL Normal 74-106 [facility] Comment on above: Performed By: #### T MARY ANN, CMP #### [facility] [address] [place] [address] Yazmin Jessa Potassium [Moles/Vol] 4.8 mmol/L Normal 3.4-5.0 [facility] Comment on above: Performed By: #### T MARY ANN, CMP #### [facility] [address] [place] [address] Yazmin Jessa Protein [Mass/Vol] 7.7 g/dL Normal 6.1-8.2 [facility] Comment on above: Performed By: #### T MARY ANN, CMP #### [facility] [address] [place], [place] [phone] Yazmin Jessa Sodium [Moles/Vol] 140 mmol/L Normal 137-145 [facility] Comment on above: Performed By: #### T MARY ANN, CMP #### [facility] [address] [place] [id number] Yazmin Jessa Urea nitrogen [Mass/Vol] 14.0 mg/dL Normal 7.0-17.0 [facility] Comment on above: Performed By: #### T MARY ANN, CMP #### [facility] [address] [place] [address] Yazmin Jessa Urea nitrogen/Creatinine [Mass ratio] 17.3 mg/mg Normal [facility] Comment on above: Performed By: #### T MARY ANN, CMP #### [facility] [address] [place], [place] [address] Yazmin Germain TSHon 03-23-2021 TSH 1.995 uIU/mL Normal 0.470-4.680 [facility] Comment on above: Performed By: #### T SH, CMP #### [facility] [address] [place], [place] [address] Yazmin Germain TSH RANGE SEE BELOW Normal [facility] Comment on above: Result Comment: <0.3 4 UIU/ml HYPERTHYROID 0.34-5.60 UIU/ml EUTHYROID >5.60 UIU/ml HYPOTHYROID Performed By: #### T SH, CMP #### [facility] [address] [place], [place] [address] Yazmin Germain Vital Signs Date Time Vital Sign Value Performing Clinician Facility 04-02-2025 10:24-0400 Body height 170.2 cm Jessa Alvaradomer PA Work Phone: [facility] 04-02-2025 10:24-0400 Body mass index (BMI) [Ratio] 36.9 kg/m2 Jessa Hemmer PA Work Phone: [facility] 04-02-2025 10:24-0400 Body weight 106.87 kg Jessa Hemmer PA Work Phone: [facility] 04-02-2025 10:24-0400 Diastolic blood pressure 102 mm[Hg] Jessa Hemmer PA Work Phone: [facility] Comment on above: Just took her med not too long ago. 04-02-2025 10:24-0400 Heart rate 74 /min Jessa Hemmer PA Work Phone: [facility] 04-02-2025 10:24-0400 Respiratory rate 16 /min Jessa Hemmer PA Work Phone: [facility] 04-02-2025 10:24-0400 SaO2% (BldA) [Mass fraction] 96 % Jessa Hemmer PA Work Phone: [facility] 04-02-2025 10:24-0400 Systolic blood pressure 158 mm[Hg] Jessa Hemmer PA Work Phone: [facility] Comment on above: Just took her med not too long ago. 02-25-2025 11:27-0400 Body height 170.18 cm Noah Bethea II Work Phone: [facility] 02-25-2025 11:27-0400 Body mass index (BMI) [Ratio] 35 kg/m2 Noah Bethea II Work Phone: [facility] 02-25-2025 11:27-0400 Body weight 101.6 kg Noah Bethea II Work Phone: [facility] 02-25-2025 11:27-0400 Diastolic blood pressure 88 mm[Hg] Noah Bethea II Work Phone: [facility] 02-25-2025 11:27-0400 Systolic blood pressure 134 mm[Hg] Noah Bethea II Work Phone: [facility] 02-13-2025 09:08-0400 Body height 170.2 cm Po Brown DPM Work Phone: [facility] 02-13-2025 09:08-0400 Body mass index (BMI) [Ratio] 36.49 kg/m2 Po Brown DPM Work Phone: [facility] 02-13-2025 09:08-0400 Body weight 105.69 kg Po Semaj DPM Work Phone: [facility] 02-13-2025 09:08-0400 Respiratory rate 16 /min Po Brown DPM Work Phone: [facility] 01-16-2025 10:19-0400 Body height 170.2 cm Po Cha DPM Work Phone: [facility] 01-16-2025 10:19-0400 Body mass index (BMI) [Ratio] 36.49 kg/m2 Po Brown DPM Work Phone: [facility] 01-16-2025 10:19-0400 Body weight 105.69 kg Po Brown DPM Work Phone: [facility] 01-16-2025 10:19-0400 Respiratory rate 18 /min Po Brown DPM Work Phone: [facility] 09-11-2024 08:52-0500 Body height 170.2 cm Noah Bethea MD Work Phone: [facility] 09-11-2024 08:52-0500 Body mass index (BMI) [Ratio] 36.49 kg/m2 Noah Bethea MD Work Phone: [facility] 09-11-2024 08:52-0500 Body weight 105.69 kg Noah Bethea MD Work Phone: [facility] 09-11-2024 08:52-0500 Diastolic blood pressure 72 mm[Hg] Noah Bethea MD Work Phone: [facility] 09-11-2024 08:52-0500 Heart rate 70 /min Noah Bethea MD Work Phone: [facility] 09-11-2024 08:52-0500 SaO2% (BldA) [Mass fraction] 97 % Noah Bethea MD Work Phone: [facility] 09-11-2024 08:52-0500 Systolic blood pressure 130 mm[Hg] Noah Bethea MD Work Phone: [facility] 06-11-2024 09:56-0500 Body height 170.2 cm Grace Bean HAND TIER Work Phone: [facility] 06-11-2024 09:56-0500 Body mass index (BMI) [Ratio] 36.02 kg/m2 Grace Bean HAND TIER Work Phone: [facility] 06-11-2024 09:56-0500 Body temperature 97.5 [degF] Grace Bean HAND TIER Work Phone: [facility] 06-11-2024 09:56-0500 Body weight 104.33 kg Grace Bean HAND TIER Work Phone: [facility] 06-11-2024 09:56-0500 Diastolic blood pressure 66 mm[Hg] Grace Bean HAND TIER Work Phone: [facility] 06-11-2024 09:56-0500 Heart rate 81 /min Grace Bean HAND TIER Work Phone: [facility] 06-11-2024 09:56-0500 SaO2% (BldA) [Mass fraction] 99 % Grace Bean HAND TIER Work Phone: [facility] 06-11-2024 09:56-0500 Systolic blood pressure 124 mm[Hg] Grace Bean HAND TIER Work Phone: [facility] 03-06-2024 08:50-0400 Body height 170.2 cm Noah Bethea MD Work Phone: [facility] 03-06-2024 08:50-0400 Body mass index (BMI) [Ratio] 35.08 kg/m2 Noah Bethea MD Work Phone: [facility] 03-06-2024 08:50-0400 Body weight 101.61 kg Noah Bethea MD Work Phone: [facility] 03-06-2024 08:50-0400 Diastolic blood pressure 82 mm[Hg] Noah Bethea MD Work Phone: [facility] 03-06-2024 08:50-0400 Heart rate 71 /min Noah Bethea MD Work Phone: [facility] 03-06-2024 08:50-0400 SaO2% (BldA) [Mass fraction] 96 % Noah Bethea MD Work Phone: [facility] 03-06-2024 08:50-0400 Systolic blood pressure 136 mm[Hg] Noah Bethea MD Work Phone: [facility] 07-09-2023 13:00-0500 Body height 170.18 cm Cassandra De La Rosa Other [facility] Other 07-09-2023 13:00-0500 Body mass index (BMI) [Ratio] 29.75 kg/m2 Cassandra De La Rosa Other [facility] Other 07-09-2023 13:00-0500 Body temperature 98 [degF] Cassandra De La Rosa Other [facility] Other 07-09-2023 13:00-0500 Body weight 86.18 kg Cassandra De La Rosa Other [facility] Other 07-09-2023 13:00-0500 Respiratory rate 18 /min Cassandra De La Rosa Other [facility] Other 07-09-2023 13:00-0500 SaO2% (BldA) [Mass fraction] 99 % Cassandra De La Rosa Other [facility] Other 06-04-2021 10:20-0500 Body height 170.18 cm Gerri Sanchez Other [facility] Other 06-04-2021 10:20-0500 Body mass index (BMI) [Ratio] 35.39 kg/m2 Gerri Geigermond Other [facility] Other 06-04-2021 10:20-0500 Body temperature 97.9 [degF] Gerri Geigermond Other [facility] Other 06-04-2021 10:20-0500 Body weight 102.51 kg Gerri Geigermond Other [facility] Other 06-04-2021 10:20-0500 Diastolic blood pressure 80 mm[Hg] Gerri Geigermond Other [facility] Other 06-04-2021 10:20-0500 Respiratory rate 16 /min Gerri Geigermond Other [facility] Other 06-04-2021 10:20-0500 SaO2% (BldA) [Mass fraction] 97 % Gerri Sanchez Other [facility] Other 06-04-2021 10:20-0500 Systolic blood pressure 120 mm[Hg] Gerri Sanchez Other [facility] Other Encounters Encounter Date Encounter Type Care Provider Facility Start: 04-02-2025 End: 04-02-2025 1DayLaterheet Jessa RANDOLPH Work Phone: [facility] [place] [facility] Start: 04-02-2025 End: 04-02-2025 1DayLaterheet Jessa RANDOLPH Work Phone: [facility] [place] [facility] Start: 04-02-2025 End: 04-02-2025 Office outpatient visit 25 minutes Jessa RANDOLPH Work Phone: [facility] [place] [facility] Comment on above: Essential (primary) hypertension (Primary Dx); Encounter for screening mammogram for malignant neoplasm of breast; Estrogen deficiency; Primary osteoarthritis involving multiple joints; Primary osteoarthritis of right knee Start: 04-02-2025 End: 04-02-2025 ambulatory JESSA MAYS Not Available Start: 02-25-2025 End: 02-25-2025 Clinisync Result Encounter Generic External Data Provider [facility] External Department Unsolicited Start: 02-25-2025 End: 02-25-2025 Clinisync Result Encounter Generic External Data Provider [facility] External Department Unsolicited Start: 02-25-2025 End: 02-25-2025 ambulatory Noah Bethea II Work Phone: [facility] Work Phone: Start: 02-25-2025 End: 02-25-2025 Patient encounter procedure Carmen Marcos MD -[facility] Work Phone: Start: 02-13-2025 End: 02-13-2025 Bamboo flowsheet Po Cha DPM Work Phone: [facility] Start: 02-13-2025 End: 02-13-2025 Bamboo flowsheet Po A Semaj DPM Work Phone: [facility] Start: 02-13-2025 End: 02-13-2025 Office outpatient visit 15 minutes Po Nathalie Semaj DPM Work Phone: [facility] Comment on above: Capsulitis of metata rsophalangeal (MTP) joint of left foot (Primary Dx); Metatarsal deformity, left; Contracture of left ankle Start: 02-13-2025 End: 02-13-2025 ambulatory PO CHA Not Available Start: 01-16-2025 End: 01-16-2025 Bamboo flowsheet Po Nathalie Semaj DPM Work Phone: [facility] Start: 01-16-2025 End: 01-16-2025 Bamboo flowsheet Po A Semaj DPM Work Phone: [facility] Start: 01-16-2025 End: 01-16-2025 Office outpatient new 30 minutes Po A Semaj DPM Work Phone: [facility] Comment on above: Hav (hallux abducto valgus), left (Primary Dx); Contracture of left ankle; Metatarsal deformity, left; Capsulitis of metatarsophalangeal (MTP) joint of left foot Start: 01-16-2025 End: 01-16-2025 ambulatory PO CHA Not Available Start: 09-11-2024 End: 09-11-2024 Bamboo flowsheet Noah Bethea MD Work Phone: [facility] Start: 09-11-2024 End: 09-11-2024 Ravindraboo flowsfarheen Bethea MD Work Phone: [facility] [...] 06-11-2024 End: 06-11-2024 Bamboo flowsheet Grace Bean HAND TIER Work Phone: [facility] Start: 06-11-2024 End: 06-11-2024 Bamboo flowsheet Grace Bean HAND TIER Work Phone: [facility] Start: 06-11-2024 End: 06-11-2024 Office outpatient visit 25 minutes Grace Bean HAND TIER Work Phone: [facility] Comment on [...] Dx); Acquired hypothyroidism (CMS/HCC); Breast screening Start: 07-09-2023 End: 07-09-2023 ambulatory Cassandra De La Rosa Other [facility] Other Start: 07-09-2023 Office outpatient vi sit 25 minutes Cassandra De La Rosa [facility] [place] Start: 01-05-2022 End: 01-06-[address] NOAH BETHEA Facility:[facility] Start: 06-04-2021 End: 06-04-2021 ambulatory Gerri Sanchez Other [facility] Other Start: 06-04-2021 Office outpatient ne w 20 minutes Gerritami Sanchez [facility] [place] Start: 03-26-2021 End: 03-27-2021 ambulatory OLU GUZMAN Facility:[facility] Start: 03-23-2021 End: 03-24-2021 ambulatory OLU GUZMAN Facility:[facility] Procedures Date Procedure Procedure Detail Performing Clinician Start: 02-25-2025 End: 02-25-2025 Radiologic examination pelvis 1/2 views Generic External Data Provider Start: 01-16-2025 Radex foot complete minimum 3 views Po KHANM Work Phone: Start: 03-26-2024 Mammography Noah newby MD Work Phone: Start: 03-15-2023 Mammography Noah newby MD Work Phone: Start: 09-26-2018 Colonoscopy Noah newby MD Work Phone: Plan of Treatment Date Care Activity Detail Author Start: 09-26-2028 Screening for malignant neoplasm of colon [facility] Start: 09-16-2025 End: 09-16-2025 Patient encounter procedure 09/16/2025 9:00 AM EDT Office Visit [facility] [place] [facility] [address] [place] [id number] Jessa Mays PA [address] [place] [address] [facility] [place] [facility] Start: 09-11-2025 Medicare Annual Wellness (AWV) Medicare Annual Wellness (AWV) [facility] Start: 04-02-2025 End: 06-02-2026 DBT Breast - bilateral screening Bilateral screening mammogram with tomosynthesis Imaging Routine Encounter for screening mammogram for malignant neoplasm of breast Expected: 04/02/2025, Expires: 06/02/2026 [facility] Work Phone: Comment on above: Expected: 04/02/2025, Expires: Start: 04-02-2025 End: 04-02-2026 DXA Skeletal system Views for bone density DEXA bone density Imaging Routine Estrogen deficiency Expected: 04/02/2025, Expires: 04/02/2026 [facility] Comment on above: Expected: 04/02/2025, Expires: Start: 04-02-2025 End: 04-02-2025 Patient encounter procedure 04/02/2025 10:30 AM EDT Office Visit [facility] [place] [facility] [address] [place] [id number] Jessa Mays PA [address] [place] [address] Arrived [facility] [place] [facility] Comment on above: Arrived Start: 03-26-2025 Screening for malignant neoplasm of breast Mammogram [facility] Start: 03-19-2025 End: 03-19-2025 Patient encounter procedure [facility] Start: 03-10-2025 Influenza vaccination Influenza Vaccine (#1) [facility] Start: 02-13-2025 End: 02-13-2025 Clinical Support 02/13/2025 9:20 AM EDT Clinical Support [facility] [address] [place] [id number] Po Cha DPM [address] [facility] [address] [place] [address] Capsulitis of metatarsophalangeal (MTP) joint of left foot (Primary Dx); Metatarsal deformity, left; Contracture of left ankle [facility] Comment on above: Capsulitis of metatarsophalangeal (MTP) joint of left foot (Primary Dx); Metatarsal deformity, left; Contracture of left ankle Start: 01-16-2025 End: 01-16-2025 Patient encounter procedure 01/16/2025 10:20 AM EDT Office Visit [facility] [address] [facility] [address] [place] [address] Po Cha DPM [address] [facility] [address] [place] [address] [facility] [facility] Start: 11-06-2024 Influenza vaccination Influenza Vaccine (#1) [facility] Comment on above: Postponed from 03/10/2024 (Patient Refus ed) Start: 10-31-2024 Medicare Annual Wellness (AWV) Medicare Annual Wellness (AWV) [facility] Start: 09-11-2024 End: 09-11-2025 Comprehensive metabolic 2000 panel - Serum or Plasma Comprehensive metabolic panel Lab Routine Routine general medical examination at health care facility Essential (primary) hypertension (CMS/HCC) Expected: 09/11/2024 (Approximate), Expires: 09/11/2025 [facility] Comment on above: Expected: 09/11/2024 (Approximate), Expi [...] obesity type Expected: 09/11/2024 (Approximate), Expires: 09/11/2025 [facility] Work Phone: Comment on above: Expected: 09/11/2024 (Approximate), Expi res: 09/11/2025 Start: 09-11-2024 End: 09-11-2025 TSH W/REFLEX TO FT4 TSH W/REFLEX TO FT4 Lab Routine Routine general medical examination at health care facility Acquired hypothyroidism (CMS/HCC) Expected: 09/11/2024 (Approximate), Expires: 09/11/2025 [facility] Comment on above: Expected: 09/11/2024 (Approximate), Expi res: 09/11/2025 Start: 09-11-2024 End: 09-11-2024 Patient encounter procedure [facility] Comment on above: Arrived Start: 06-11-2024 End: 06-11-2024 Patient encounter procedure [facility] Comment on above: Arrived Start: 03-15-2024 Screening for malignant neoplasm of breast Mammogram [facility] Start: 03-10-2024 Influenza vaccination Influenza Vaccine (#1) [facility] Start: 03-06-2024 End: 05-06-2025 MG Breast - bilateral Screening Bilateral screening mammogram Imaging Routine Breast screening Expected: 03/06/2024, Expires: 05/06/2025 [facility] Work Phone: Comment on above: Expected: 03/06/2024, Expires: Start: 03-06-2024 End: 03-06-2024 Patient encounter procedure 03/06/2024 9:00 AM EDT Office Visit [facility] [address] [facility] [address] [place] [id number] Noah Bethea MD [address] [facility] [address] [place] [address] Arrived [facility] Comment on above: Arrived Start: 2015 Pneumococcal Vaccine: 65+ Years (1 of 1 - PCV) Pneumococcal Vaccine: 65+ Years (1 of 1 - PCV) [facility] Start: 1950 Screening for malignant neoplasm of colon [facility] CBC W Auto Different ial panel - Blood CBC and differential Lab Routine Routine general medical examination at health care facility Essential (primary) hypertension (CMS/HCC) Primary osteoarthritis involving multiple joints Ordered: 09/11/2024 [facility] Comment on above: Ordered: 09/11/2024 XR Knee - right 4 Views [facility] XR Pelvis 1 or 2 Views [facility] Immunizations Immunization Date Immunization Notes Care Provider Fa cilibladimir 11-07-2023 Pneumococcal Conjuga te PCV 20 Grace Bean NP Work Phone: [facility] 05-01-2020 Influenza, High-dose Seasonal, Quadrivalent, Preservative Free Noah Bethea MD Work Phone: [facility] 05-01-2020 influenza virus vacc ine, unspecified formulation Noah Bethea MD Work Phone: [facility] Payers Date Payer Category Payer Medicare [employer] MEDICARE ADVANTAGE [employer] MEDICARE [id number] 2017-Present [address] [address] [place] [address] [id number] 2017 Medicare (Managed Care) [employer] EDICARE ADVANTAGE [id number] 1959 Medicare [id number] 1950 Unknown [id number] [id number] 1950 Unknown [id number]. [id number] 1950 Unknown [id number]. [id number] 1950 Unknown [id number]. 2.1259 1950 Unknown [id number] [id number] 1950 Unknown [id number]. 2.9 1950 Unknown [id number]. 2.9 1950 Unknown [id number]. 2.9 1950 Unknown [id number] 2.1259 Medicare [id number] Unknown Dion BC/BS [id number] Social History Date Type Detail Facility Start: 03-06-2024 End: 04-02-2025 Sex Assigned At [facility] Work Phone: Start: 03-03-2023 End: 01-16-2025 Tobacco smoking status [facility] Ex-smoker [facility] End: 10-16-1991 History of tobacco use Current smoker [facility] End: 10-16-1991 History of tobacco use Cigarette Smoker [facility] Start: 03-03-2023 End: 01-16-2025 Tobacco use and exposure Smokeless tobacco non-user [facility] Start: 03-06-2024 End: 04-02-2025 Alcoholic beverage intake Lifetime non-drinker (finding) [facility] Start: 03-06-2024 End: 04-02-2025 History of Social function [facility] Work Phone: Start: 03-03-2023 Alcohol Comment Caffeine 1-2 c ups per day [facility] Start: 1950 Sex assigned at Not on file N [facility] Start: 07-09-2023 Tobacco smoking stat [facility] Never smoked tobacco (finding) [facility] Sex Female (finding) [facility] Start: 1950 Sex Assigned At Female F [facility] Functional Status Date Assessment Result Facility 04-02-2025 Patient Health [facility] ionnaire 2 item (PHQ-2) [Reported] [facility] Clinical Notes 06-04-2021 to 04-02-2025 AGUSTÍN Villalobos - 04/02/2025 10:30 AM Luis Cha DPM - 02/13/2025 9:20 AM Luis Cha, NARCISO - 01/16/2025 10:20 AM Kofi Bethea MD - 09/11/2024 9:00 AM EST Note Date & Type Note Facility 04-02-2025 History of Presen t illness Narrative Images from the original note were not included. HPI Medication Problem Additional comments: She feels the meloxicam is making her BP increase and is not really getting much benefit from it, also feels like it is making her hair fall out. She wants to discuss if she can just stop taking it. Last edited by Coretta Mary LPN on 04/02/2025 10:27 AM. Subjective Patient ID: Rigoberto Barrios is a 74 y.o. female who presents for hypertension. Rigoberto is present today for follow up hypertension. Denies chest pain, SOB, blurry vision, headaches. Currently on Amlodipine and Atenolol. Checks her BP at home periodically. States the Voltaren Gel doesn't really help with her knee pain either. Over the past 2 weeks, how often have you been bothered by any of the following problems? Little interest or pleasure in doing things: Not at all Feeling down, depressed, or hopeless: Not at all Patient Health Questionnaire-2 Score: 0 Current Outpatient Medications on File Prior to Visit Medication Sig Dispense Refill diclofenac sodium 1 % gel Apply 4 g topically 4 (four) times a day as needed [DISCONTINUED] meloxicam (Mobic) 15 MG tablet Take 15 mg by mouth Daily amLODIPine (Norvasc) 5 MG tablet Take 1 tablet (5 mg) by mouth Daily 90 tablet 5 atenolol (Tenormin) 25 MG tablet TAKE 1 TABLET BY MOUTH EVERY DAY 90 tablet 4 cholecalciferol (Vitamin D-3) 50 MCG (1999 [...] and medication list with the patient today. 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 Pulse 74 Resp 16 Ht 5' 7 Wt 235 lb 9.6 oz SpO2 96% BMI 36.90 kg/m Smoking Status Former BSA 2.25 m Review of Systems Constitutional: Negative for chills, fatigue and fever. Respiratory: Negative for cough, shortness of breath and wheezing. Cardiovascular: Negative for chest pain, palpitations and leg swelling. Gastrointestinal: Negative for abdominal pain, constipation, diarrhea, nausea and vomiting. Skin: Negative for rash. Objective Physical Exam Constitutional: General: She is not in acute distress. Appearance: She is well-developed. She is obese. HENT: Head: Normocephalic and atraumatic. Eyes: General: [...] and oriented to person, place, and time. Gait: Gait abnormal (Antalgic). Psychiatric: Mood and Affect: Mood normal. Behavior: Behavior normal. Assessment/Plan Diagnoses and all orders for this visit: Essential (primary) hypertension Patient's BP was elevated today. Encouraged her to monitor her BP at home for the next week every day to make sure it begins to come back down to her norm after discontinuing the Meloxicam. Contact office if does not improve. Continue current medications. Encounter for screening mammogram for malignant neoplasm of breast - Bilateral screening mammogram with tomosynthesis; Future Provided patient with an order for an updated Mammogram. If results are negative/normal, will plan to continue with routine yearly screenings. Estrogen deficiency - DEXA bone density; Future Provided pt with order to have an updated DEXA scan. Will plan to conitnue to monitor very two years. Primary osteoarthritis involving multiple joints Meloxicam and Voltaren were not helpful for patient. Primary osteoarthritis of right knee Patient will contact Dr. Torres's office to schedule an appointment. She would like to proceed with scheduled to have her right knee replaced. Follow up in about 5 months (around 09/12/2025) for Medicare Wellness Visit. documented in this encounter [facility] 02-13-2025 History of Presen t illness Narrative [...] future and postoperative timeframe and would like Felton for postoperative pain Patient continue with wider shoes Po Cha DPM documented in this encounter [facility] 01-16-2025 History of Presen t illness Narrative [...] Patient may continue with conservative treatments including [id number] anti-inflammatories and other treatments suggested today. Patient may want to be scheduled for surgical intervention in the near future. Discussed possible left Mendy osteotomy with tailor's bunionectomy if no relief in the future and postoperative timeframe and would like Felton for postoperative pain Pt was given steroid [...] Po Cha DPM documented in this encounter [facility] 09-11-2024 History of Presen t illness Narrative [...] Do you have a medical power of county attorney?: No Objective : BP 130/72 Pulse [...] September 11, 2024 documented in this encounter [facility] 06-11-2024 History of Presen t illness Narrative [...] tablet 3 cholecalciferol (Vitamin D-3) 50 MCG (1999) capsule [...] follow-ups on file. documented in this encounter [facility] 06-11-2024 Telephone encount er Note Pt has scheduled an apt [facility] 06-11-2024 Miscellaneous Notes Formattin g of this note might be different from the original. Pt has scheduled an apt Patient called stating she has a sinus infection and wondered if an anitbiotic could be called in for her. She has only taken advil for this no other otc meds. Her pharmacy is [facility]. documented in this encounter [facility] 06-10-2024 Telephone encount er Note Patient called stating she has a sinus infection and wondered if an anitbiotic could be called in for her. She has only taken advil for this no other otc meds. Her pharmacy is [facility]. [facility] 03-06-2024 History of Presen t illness Narrative [...] Final BUN/CREATININE RATIO 11/01/2023 SEE NOTE: 6 (calc) Final Comment: Not Reported: BUN and [...] factors. LDL-C is now calculated using the Spenser-Whittaker calculation, which is a validated novel method providing better accuracy than the Friedewald equation in the estimation of LDL-C. Spenser SS et al. ARELY. 2013;310(19): 7601-6263 (http://education.[employer].co m/faq/XKB852) CHOL/HDLC RATIO 11/01/2023 3.2 <5.0 (calc) Final [...] 09/06/2024) for Wellness. documented in this encounter [facility] 07-09-2023 Evaluation note Encounter Date Diagnosis Assessment [...] understanding and is agreeable to treatment plan [facility] 11-26-2021 Evaluation note* Encounter Date Diagnosis [...] no improvement in 2 to 3 days [facility] Other Evaluation note* Diagnosis Acute non-recurrent pansinusitis- Primary documented in this encounter [facility] note* Diagnosis Essential (primary) hypertension (CMS/HCC)- Primary Unspecified essential hypertension Acquired hypothyroidism (CMS/HCC) Unspecified hypothyroidism Breast screening Breast screening, unspecified documented in this encounter [facility] Healthcare[facility] note* Diagnosis Routine general medical examination [...] unspecified obesity type documented in this encounter [facility] note* Diagnosis Hav (hallux abducto valgus), 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, left Capsulitis of metatarsophalangeal (MTP) joint of left foot documented in this encounter [facility] note* Diagnosis Capsulitis of metatarsophalangeal (MTP) joint of left foot- Primary Metatarsal deformity, left Contracture of left ankle documented in this encounter [facility] HealthcareEvaluation noteNo assessment [facility] Work Phone: Evaluation note* Diagnosis Essential (primary) hypertension- Primary Unspecified essential hypertension Encounter for screening mammogram for malignant neoplasm of breast Estrogen deficiency Other ovarian failure Primary osteoarthritis involving multiple joints Primary osteoarthritis of right knee documented in this encounter [facility] Narrative - Reported* Type Description Date Medical History renan's disease Medical History HTN Medical History thyroid nodule [place] [facility] Other Reason for referral (narrative)No reason for referral [facility] Work Phone: Summary Purpose Family History No Family History Records Found Relationship Condition Age at Onset Recorded Date/T adama father Malignant neoplasm of lung Unknown Unknown mother Unknown Advance Directives No Advanced Directives Records Found Advance Directive Response Recorded Date/ Time Advance Directives No February 18, 2025 1:53pm Chief Complaint and Reason for Visit Chief Complaint Admit Date [facility]-NEW RT KNEE PAIN February 25, 2025 1 0:29am Additional Source Comments REASON FOR VISIT (unrecogniz ed section and content) Reason Comments Sinusitis Reason Comments Hypertension Results labs Reason Comments Medicare Annual Wellness Visit Subsequen t Reason Comments Bunions Reason Comments Follow-up Reason Comments Medication Problem She feels the meloxi cam is making her BP increase and is not really getting much benefit from it, also feels like it is making her hair fall out. She wants to discuss if she can just stop taking it. INFORMATION SOURCE (unrecogn ized section and content) DATE CREATED AUTHOR 01/08/2022 [facility] DATE CREATED AUTHOR AUTHOR'S ORGANIZ ATION 09/14/2024 [facility] DATE CREATED AUTHOR AUTHOR'S ORGANIZ ATION 04/03/2025 [facility] d[facility] Specialists [facility] Care Teams (unrecognized sec tion and content) Carbonation Tester Relationship Specialty Start Date End Date Noah Bethea MD [address] [facility] [address] [place] [address] PCP - [employer] 07/10/17 Noah Bethea MD [address] [facility] [address] [place] [address] PCP - General Internal Medicine 01/17/23 Carbonation Tester Relationship Specialty Start Date End Date Noah Bethea MD [address] [facility] [address] [place] [address] PCP - [employer] 07/10/17 Noah Bethea MD [address] [facility] [address] [place] [address] PCP - General Internal Medicine 01/17/23 Carbonation Tester Relationship Specialty Start Date End Date Noah Bethea MD [address] [facility] [address] [place] [address] PCP - [employer] 07/10/17 Noah Bethea MD [address] [facility] [address] [place] [address] PCP - General Internal Medicine 01/17/23 Carbonation Tester Relationship Specialty Start Date End Date Noah Bethea MD [address] [facility] [address] [place] [address] PCP - [employer] 07/10/17 Noah Bethea MD [address] [facility] [address] [place] [address] PCP - General Internal Medicine 01/17/23 Carbonation Tester Relationship Specialty Start Date End Date Noah Bethea MD [address] [facility] [address] [place] [address] PCP - [employer] 07/10/17 Noah Bethea MD [address] [facility] [address] [place] [address] PCP - General Internal Medicine 01/17/23 Carbonation Tester Relationship Specialty Start Date End Date Noah Bethea MD [address] [facility] [address] [place] [address] PCP - [employer] 07/10/17 Noah Bethea MD [address] [facility] [address] [place] [address] PCP - General Internal Medicine 01/17/23 Carbonation Tester Relationship Specialty Start Date End Date Noah Bethea MD [address] [facility] [address] [place] [address] PCP - [employer] 07/10/17 Noah Bethea MD [address] [facility] [address] [place] [address] PCP - General Internal Medicine 01/17/23 Carbonation Tester Relationship Specialty Start Date End Date Noah Bethea MD [address] [facility] [address] [place] [address] PCP - [employer] 07/10/17 Noah eBthea MD [address] [facility] [address] [place] [address] PCP - General Internal Medicine 01/17/23 Carbonation Tester Relationship Specialty Start Date End Date Noah Bethea MD [address] [facility] [address] [place] [address] PCP - [employer] 07/10/17 Noah Bethea MD [address] [facility] [address] [place] [address] PCP - General Internal Medicine 01/17/23 Team Status: Active Member Role Status Dates Noah Bethea II MD Primary Care Provider Active Team Status: Inactive Member Role Status Dates Carmen Torres II, MD Attending Provider Active Start: February 25, 2025 End: February 25, 2025 Noah Bethea II MD Primary Care Provider Active Start: February 25, 2025 End: February 25, 2025 Carbonation Tester Relationship Specialty Start Date End Date Noah Bethea MD [address] [facility] [address] [place] [address] PCP - [facility] 07/10/17 Noah Bethea MD [address] [facility] [address] [place] [address] PCP - General Internal Medicine 01/17/23 Carbonation Tester Relationship Specialty Start Date End Date Noah Bethea MD [address] [facility] [address] [place] [address] PCP - [facility] 07/10/17 Noah Bethea MD [address] [facility] [address] [place] [address] PCP - General Internal Medicine 01/17/23 Goals (unrecognized section and content) Goals may be documented in a n alternate section FOR RECORDS PERTAINING TO PATIENTS WHO ARE [...] BE BASED ON THE PRIMARY CLINICAL RECORDS. [employer] [facility]. provides no warranty or guarantee of the accuracy or completeness of information in this document.
--- NOTE | 2025-04-22 09:10 | MM_ITS ---
Patient Name: RIGOBERTO BARRIOS MR#: [id number] : 1950 Exam Date: 04/22/2025 Ordering Doctor: DR ABDON RANDOLPH RADIOLOGY REPORT PROCEDURE: MM TOMOSYNTHESIS SCREENING BI COMPARISON: MM TOMOSYNTHESIS SCREENING BI, 03/26/2024. MM TOMOSYNTHESIS SCREENING BI, 03/15/2023. MG MAMM SCREEN 3D OWEN CAD, 01/05/2022. MG MAMM OWEN SCRN W CAD DIG, 04/19/2013. INDICATIONS: Screening Calculator Name NCI Breast Cancer Risk Assessment Tool 5 Year Breast Cancer Risk 2.40% Lifetime Breast Cancer Risk 5.60% Personal Breast Cancer No Personal Ovarian Cancer No Treatments None Family Cancers Father with lung cancer at age ~72. LOCATION: [facility] BREAST COMPOSITION: There are scattered areas of fibroglandular density. FINDINGS: DIAGNOSTIC CATEGORY 1--NEGATIVE. RIGHT BREAST: No significant suspicious finding. LEFT BREAST: No significant suspicious finding. RECOMMENDATIONS: ROUTINE MAMMOGRAM AND CLINICAL EVALUATION IN 12 MONTHS. Dictated by: Tre Courtney DO on 04/22/2025 at 15:32 Approved by: Tre Courtney DO on 04/22/2025 at 15:33
== END 2025-04-22 08:45 | disposition home or self-care (01) ==
LOC: MAMMO 08:44
PROVIDERS: Family Provider Internal Medicine; PCP Internal Medicine; Visit Provider Physician Assistant
DX: E28.39 Other primary ovarian failure (principal); Z12.31 Encounter for screening mammogram for malignant neoplasm of breast; Z80.1 Family history of malignant neoplasm of trachea, bronchus and lung; M85.88 Other specified disorders of bone density and structure, other site
CPT/HCPCS: 77063; 77067; 77080